=== PATIENT | female | born 1960 | race Hispanic/Latino ===

== ENCOUNTER 2021-07-17 22:08 | Inpatient (IN) | payer SELFPAY ==
[2021-07-17] MEDS ORDERED: NA CHLORIDE 0.9% 1,000 ML ONE (23:12)
[2021-07-17] MEDS ORDERED: METOPROLOL TARTRATE 5 MG/5 ML INJ IV ONE (23:12)
[2021-07-17] MEDS ORDERED: FOLIC ACID 5 MG/ML VIAL ONE (23:14)
[2021-07-17] MEDS ORDERED: ALTEPLASE 100 ML IV ONE (23:15)
[2021-07-17 23:30] LABS: Absolute Lymphocytes (CBC) 3.1 K/uL (0.7-4.9); Basophils % 0.6 % (0-1.3); Hematocrit 41.6 % (36.0-45.0); Lymphocytes % 35.5 % (15.3-44.8); MPV 10.7 fL (7.6-11.3); RBC Red Blood Cell Count 4.75 M/uL (3.86-4.86)
[2021-07-17 23:31] LABS: Protime INR 0.98
[2021-07-17 23:42] LABS: ALT/SGPT 26 U/L (12-78); AST/SGOT 15 U/L (15-37); Alkaline Phosphatase 115 U/L (45-117); BUN Blood Urea Nitrogen 24 mg/dL (7-18); Bicarbonate 29 mmol/L (21-32); Bilirubin Direct < 0.1 mg/dL (0-0.2); Bilirubin Total 0.2 mg/dL (0.2-1.0); Glucose Level 108 mg/dL (74-106); Magnesium 2.2 mg/dL (1.8-2.4); NT PRO-BNP 74 pg/mL (<125); Potassium 3.7 mmol/L (3.5-5.1); Protein, Total 7.5 g/dL (6.4-8.2); Sodium Level 141 mmol/L (136-145); Troponin (Emerg Dept Use Only) < 0.02 ng/mL (0.0-0.045)
[2021-07-18] MEDS ORDERED: NA CHLORIDE 0.9% 100 ML ONE (00:13)
--- NOTE | 2021-07-18 01:29 | EDPHYS ---
Physician Documentation [facility] Name: Elvira Thorpe Age: 60 yrs Sex: Female : 1960 Arrival Date: 07/17/2021 Time: 22:11 Bed 8 Private MD: OTF Physician Galindo Del Angel HPI: 07/17 22:20 This 60 yrs old Female presents to ER via Wheelchair with complaints of Left cp Arm Weakness and Left Leg Weakness. 22:20 The patient's problem is reported as paresthesias, in left upper extremity, weakness, cp in the left upper extremity, in the left lower extremity. Onset: The symptoms/episode began/occurred tonight at approximately 1999. Duration: The episode is continuous. Context: the episode(s) was witnessed, by no one, occurred at home, Possible contributing factors include: Patient is a know diabetic. Associated signs and symptoms: Pertinent positives: headache, Pertinent negatives: abdominal pain, chest pain. Patient's baseline: Neuro: alert and fully oriented, Motor: no deficits, Ambulation: walks without assistance, Speech: normal. Historical: - Allergies: 23:21 No Known Allergies; ea - Home Meds: 23:21 multivitamin with minerals oral [Active]; ea - PMHx: 23:23 breast cancer ; 18 years ago; ea - PSHx: 23:21 section; hysterectomy; ea 23:23 cancerous lump removal; ea - Immunization history:: Adult Immunizations up to date, Client reports receiving the 2nd dose of the Covid vaccine. - Social history:: Smoking status: Patient denies any tobacco usage or history of. ROS: 22:25 Eyes: Negative for injury, pain, redness, and discharge. cp 22:25 Constitutional: Negative for body aches, chills, fever, poor PO intake. 22:25 Cardiovascular: Negative for chest pain, palpitations. 22:25 Abdomen/GI: Negative for abdominal pain, vomiting, diarrhea, constipation. 22:25 Neuro: Positive for headache, weakness, of the left arm and left leg, Negative for altered mental status, speech changes, syncope. Exam: 22:30 Constitutional: The patient appears in no acute distress, alert, awake, cp non-diaphoretic, non-toxic, well developed, well nourished. 22:30 Head/Face: Normocephalic, atraumatic. cp 22:30 Eyes: Periorbital structures: appear normal, Pupils: equal, round, and reactive to light and accomodation, Extraocular movements: intact throughout, Conjunctiva: normal, no exudate, no injection, Sclera: no appreciated abnormality, Lids and lashes: appear normal, bilaterally. 22:30 ENT: External ear(s): are unremarkable, Nose: is normal, Mouth: Lips: moist, Oral mucosa: pink and intact, moist, Posterior pharynx: Airway: no evidence of obstruction, patent. 22:30 Neck: C-spine: vertebral tenderness, is not appreciated, crepitus, is not appreciated, ROM/movement: is normal, is supple, without pain, no range of motions limitations, no meningismus, no nuchal rigidity. 22:30 Chest/axilla: Inspection: normal, Palpation: is normal, no crepitus, no tenderness. 22:30 Cardiovascular: Rate: normal, Rhythm: regular, Heart sounds: murmur, not appreciated, Edema: is not appreciated, JVD: is not appreciated. 22:30 Respiratory: the patient does not display signs of respiratory distress, Respirations: normal, no use of accessory muscles, no retractions, labored breathing, is not present, Breath sounds: are clear throughout, no decreased breath sounds, no stridor, no wheezing. 22:30 Abdomen/GI: Inspection: abdomen appears normal, Palpation: abdomen is soft and non-tender, in all quadrants. 22:30 Neuro: Orientation: to person, place \T\ time. Mentation: able to follow commands, slow to respond, Motor: moves all fours, strength is 4/5 in the left arm and left leg, Sensation: numbness, that is mild, of the left hand. 23:05 Radiologist reports: no intracranial hemorrhage cp 23:42 ECG was reviewed by the Attending Physician. cp Vital Signs: 22:28 BP 176 / 72; Pulse 72; Resp 16; Temp 97.9; Pulse Ox 98% on R/A; ea 22:44 Weight 86.5 kg; ea 23:10 BP 150 / 71; Pulse 76; Resp 18; Pulse Ox 99% ; ea 23:25 BP 135 / 65; Pulse 66; Resp 17; Pulse Ox 98% on R/A; ea 07/18 01:04 BP 121 / 63; Pulse 62; Resp 18; Pulse Ox 98% ; ea 07/19 02:13 BP 111 / 63; Pulse 70; Resp 20; Temp 97.8; Pulse Ox 99% on R/A; kc4 NIH Stroke Scale Scores: 07/17 22:35 NIHSS Score: 5 cp 22:50 NIHSS Score: 2 ea 23:10 NIHSS Score: 0 ea MDM: 22:33 Patient medically screened. cp 22:45 Physician consultation: Jonathon Murphy MD was called at 22:40, was contacted at 22:40, cp regarding patient's condition, recommends administration of tpa. Order CTA head and neck and admit if no large vessel occlusion. 23:00 Differential diagnosis: CVA, TIA, metabolic disorder, drug effects, hypoglycemia. cp 07/18 01:25 Data reviewed: vital signs, nurses notes, lab test result(s), EKG, radiologic studies, cp CT scan, plain films. 01:25 Test interpretation: by ED physician or midlevel provider: ECG, plain radiologic cp studies. Response to treatment: the patient's symptoms have markedly improved after treatment. ED course: reexamination: Patient reports weakness resolved, no paresthesias on exam. 07/17 22:12 Order name: Basic Metabolic Panel; Complete Time: 23:43 mw2 07/17 23:43 Interpretation: Normal except: GLUC 108; BUN 24. cp 07/17 22:12 Order name: CBC with Diff; Complete Time: 23:38 mw2 07/17 22:12 Order name: LFT's; Complete Time: 23:43 mw2 07/17 22:12 Order name: Magnesium; Complete Time: 23:43 mw2 07/17 22:12 Order name: NT PRO-BNP; Complete Time: 23:43 mw2 07/17 22:12 Order name: PT-INR; Complete Time: 23:38 mw2 07/17 22:12 Order name: Troponin (emerg Dept Use Only); Complete Time: 23:43 mw2 07/17 23:50 Order name: Glucose, Ancillary Testing; Complete Time: 00:09 EDMS 07/18 00:18 Order name: SARS-COV-2 RT PCR; Complete Time: 01:00 EDMS 07/18 08:05 Order name: CBC with Automated Diff EDMS 07/18 08:37 Order name: Comprehensive Metabolic Panel EDND 07/18 08:37 Order name: Lipid Profile EDND 07/18 08:37 Order name: T4 Free [facility] 07/17 22:12 Order name: XRAY Chest ([address] view) [facility] 07/17 22:12 Order name: EKG; Complete Time: 22:13 2 07/17 22:12 Order name: Cardiac monitoring; Complete Time: 23:18 2 07/17 22:12 Order name: CT Head Brain wo Cont [facility] 07/17 23:45 Order name: CT Head Angio cp 07/17 23:45 Order name: CT Neck Angio cp 07/18 08:37 Order name: Thyroid Stimulating Hormone EDND 07/18 09:06 Order name: Urine Dipstick-Ancillary EDND 07/18 10:18 Order name: US EDND 07/18 12:28 Order name: MRI EDND 07/18 12:30 Order name: MRI [facility] 07/18 12:33 Order name: MRI [facility] 07/17 22:12 Order name: EKG - Nurse/Tech; Complete Time: 00:[address] [facility] 07/17 22:12 Order name: IV Saline Lock; Complete Time: 23:18 2 07/17 22:12 Order name: Labs collected and sent; Complete Time: 23:18 2 07/17 22:12 Order name: O2 Per Protocol; Complete Time: 23:18 2 07/17 22:12 Order name: O2 Sat Monitoring; Complete Time: 23:18 mw2 EC/30 23:42 Rate is 66 beats/min. Rhythm is regular. SD interval is normal. QRS interval is normal. cp QT interval is normal. T waves are Inverted in leads III, aVR. Interpreted by me. Reviewed by me. Administered Medications: 22:55 Drug: ACTIvase (alteplase) {Co-Signature: mr2 (David Daigle RN).} Route: IV ea Thrombolytics; Rate: calculated rate; Infused Over: 60 mins; 23:55 Follow up: Response: No adverse reaction 23:55 Follow up: Response: No adverse reaction 23:00 Drug: foLIC Acid 1 mg Route: IVPB; Site: right hand; ea 07/18 02:00 Follow up: IV Status: Completed infusion 07/17 23:00 Drug: NS 0.9% 1000 ml Route: IV; Rate: 1 bolus; Site: right antecubital; ea 07/18 01:40 Follow up: Response: No adverse reaction; IV Status: Completed infusion; IV Intake: ea 1000ml 07/19 02:14 Follow up: IV Status: Completed infusion kc4 07/18 01:04 Not Given (Hemodynamic Parameters): Lopressor (metoprolol) 5 mg IVP once; Hold for SBP ea <100 or HR <60. Disposition: 07/19 12:59 Co-signature as Attending Physician, Galindo Del Angel MD PA/EDITORIAL PROJECT MANAGER's history reviewed, ma2 patient interviewed, and examined. I agree with assessment and care plan and confirm the diagnosis (es) above. Disposition Summary: 07/18/21 01:28 Hospitalization Ordered Hospitalization Status: Inpatient Admission cp Provider: Apollo Garnica cp Condition: Stable cp Problem: new cp Symptoms: have improved cp Bed/Room Type: Standard cp Location: [facility] ER HOLD(07/18/21 02:18) tl1 Room Assignment: ERHOLD-(07/18/21 02:18) tl1 Diagnosis - Weakness - Left Arm and Left Leg cp - Paresthesia of skin - Left Arm cp - Elevated blood-pressure reading, without diagnosis of hypertension cp Forms: - Medication Reconciliation Form cp - SBAR form cp NIH Stroke Scale - NIH Stroke Score Date: 07/17/2021 Time: 22:35 Total Score = 5 1a. Level of Consciousness (LOC) - 0(Alert) 1b. Level of Consciousness (LOC) (Month \T\ Age) - 0(Both) 1c. LOC Commands (Open \T\ Closes Eyes/Adjunct Faculty Mathematics Department) - 0(Both) 2. Best Gaze (Lateral Gaze Paresis) - 0(Normal) 3. Visual Field Loss - 0(No visual loss) 4. Facial Palsy - 0(Normal) 5a. Left Arm: Motor (10-second hold) - 1(Drift) 5b. Right Arm: Motor (10-second hold) - 0(No drift) 6a. Left Leg: Motor (5-second hold - always test supine) - 1(Drift) 6b. Right Leg: Motor (5-second hold - always test supine) - 0(No drift) 7. Limb Ataxia (finger/nose \T\ heel/gong - test with eyes open) - 2(Present in two limbs) 8. Sensory Loss (pinprick arms/legs/face) - 1(Mild to moderate loss) 9. Best Language: Aphasia (description/naming/reading) - 0(No aphasia) 10. Dysarthria (speech clarity - read or repeat words) - 0(Normal) 11. Extinction and Inattention (visual/tactile/auditory/spatial/personal) - 0(No abnormality) Initials: cp NIH Stroke Scale - NIH Stroke Score Date: 07/17/2021 Time: 22:50 Total Score = 2 1a. Level of Consciousness (LOC) - 0(Alert) 1b. Level of Consciousness (LOC) (Month \T\ Age) - 0(Both) 1c. LOC Commands (Open \T\ Closes Eyes/Adjunct Faculty Mathematics Department) - 0(Both) 2. Best Gaze (Lateral Gaze Paresis) - 0(Normal) 3. Visual Field Loss - 0(No visual loss) 4. Facial Palsy - 0(Normal) 5a. Left Arm: Motor (10-second hold) - 1(Drift) 5b. Right Arm: Motor (10-second hold) - 0(No drift) 6a. Left Leg: Motor (5-second hold - always test supine) - 1(Drift) 6b. Right Leg: Motor (5-second hold - always test supine) - 0(No drift) 7. Limb Ataxia (finger/nose \T\ heel/gong - test with eyes open) - 0(Absent) 8. Sensory Loss (pinprick arms/legs/face) - 0(Normal) 9. Best Language: Aphasia (description/naming/reading) - 0(No aphasia) 10. Dysarthria (speech clarity - read or repeat words) - 0(Normal) 11. Extinction and Inattention (visual/tactile/auditory/spatial/personal) - 0(No abnormality) Initials: ea NIH Stroke Scale - NIH Stroke Score Date: 07/17/2021 Time: 23:10 Total Score = 0 1a. Level of Consciousness (LOC) - 0(Alert) 1b. Level of Consciousness (LOC) (Month \T\ Age) - 0(Both) 1c. LOC Commands (Open \T\ Closes Eyes/Adjunct Faculty Mathematics Department) - 0(Both) 2. Best Gaze (Lateral Gaze Paresis) - 0(Normal) 3. Visual Field Loss - 0(No visual loss) 4. Facial Palsy - 0(Normal) 5a. Left Arm: Motor (10-second hold) - 0(No drift) 5b. Right Arm: Motor (10-second hold) - 0(No drift) 6a. Left Leg: Motor (5-second hold - always test supine) - 0(No drift) 6b. Right Leg: Motor (5-second hold - always test supine) - 0(No drift) 7. Limb Ataxia (finger/nose \T\ heel/gong - test with eyes open) - 0(Absent) 8. Sensory Loss (pinprick arms/legs/face) - 0(Normal) 9. Best Language: Aphasia (description/naming/reading) - 0(No aphasia) 10. Dysarthria (speech clarity - read or repeat words) - 0(Normal) 11. Extinction and Inattention (visual/tactile/auditory/spatial/personal) - 0(No abnormality) Initials: aram Signatures: Dispatcher [employer] EDMS Tuan Le, ELECTROENCEPHALOGRAM TECHNOLOGIST-C ELECTROENCEPHALOGRAM TECHNOLOGIST-Cla1 Deepti Benitez RN RN tl1 Jero Hubbard PA PA cp Antunez, Elena, RN RN ea Alzahri, Mohammad, MD MD ma2 David Cervantes 2 Katiuska Alfred 4 David Daigle RN mr2 Corrections: (The following items were deleted from the chart) 07/17 23:17 22:42 CORONAVIRUS+.BRZ ordered. EDMS EDMS 23:24 23:21 PMHx: breast cancer; aram chiu 07/18 02:18 01:28 Intensive Care Unit cp tl1 02:18 01:28 cp tl1
--- NOTE | 2021-07-18 01:29 | ER ---
Nurse's Notes [facility] Name: Elvira Thorpe Age: 60 yrs Sex: Female : 1960 Arrival Date: 07/17/2021 Time: 22:11 Bed 8 Private MD: Diagnosis: Weakness-Left Arm and Left Leg;Paresthesia of skin-Left Arm;Elevated blood-pressure reading, without diagnosis of hypertension Presentation: 07/17 22:17 Chief complaint: Patient states: pt states she has been unable to move her left ea extremities since 1999 this pm also co headache that began at the same time. Coronavirus screen: Vaccine status: Client denies travel out of the [place] in the last 14 days. At this time, the client does not indicate any symptoms associated with coronavirus-19. Ebola Screen: Patient negative for fever greater than or equal to 101.5 degrees Fahrenheit, and additional compatible Ebola Virus Disease symptoms Patient denies exposure to infectious person. Patient denies travel to an Ebola-affected area in the 21 days before illness onset. No symptoms or risks identified at this time. Initial Sepsis Screen: Does the patient meet any 2 criteria? No. Patient's initial sepsis screen is negative. Does the patient have a suspected source of infection? No. Patient's initial sepsis screen is negative. Risk Assessment: Do you want to hurt yourself or someone else? Patient reports no desire to harm self or others. Onset of symptoms was July 17, 2021. 22:17 Method Of Arrival: Wheelchair ea 22:17 Acuity: ROLAN 2 ea Triage Assessment: 22:22 General: Appears distressed, uncomfortable. General: Behavior is anxious. Pain: ea Complains of pain in head Quality of pain is described as pressure, Pain began 2 hours ago. Is continuous, Alleviated by nothing. Aggravated by Noted to be confused. Neuro: Level of Consciousness is awake, alert, obeys commands, Oriented to Hide Mill Worker are weak on left Weakness in left Gait is Speech is slurred, Numbness in left arm and left leg. Historical: - Allergies: 23:21 No Known Allergies; ea - Home Meds: 23:21 multivitamin with minerals oral [Active]; ea - PMHx: 23:23 breast cancer ; 18 years ago; ea - PSHx: 23:21 section; hysterectomy; ea 23:23 cancerous lump removal; ea - Immunization history:: Adult Immunizations up to date, Client reports receiving the 2nd dose of the Covid vaccine. - Social history:: Smoking status: Patient denies any tobacco usage or history of. Screenin:16 Abuse screen: Denies threats or abuse. Nutritional screening: No deficits noted. ea Tuberculosis screening: No symptoms or risk factors identified. Fall Risk None identified. 23:39 The patient has not been NPO before screening. The patient is alert, able to follow ea commands. The patient does not exhibit slurred or garbled speech The patient is not exhibiting difficulty speaking. The patient does not exhibit difficulty understanding words. The patient is able to swallow own secretions with no drooling or need for suction. Patient tolerated one teaspoon of water. No drooling, immediate coughing, gurgling, or clearing of the throat was noted. The patient tolerated 90mL of water. No drooling, immediate coughing, gurgling, or clearing of the throat was noted. The patient passed the bedside swallow screening. Oral medications may be given as ordered. Contact Physician for further diet orders. The patient failed the bedside swallow screening. The patient will be kept NPO until cleared by Speech Therapy or Physician. Assessment: 22:26 General: Appears uncomfortable, Behavior is appropriate for age. Pain: Denies pain. ea Neuro: Level of Consciousness is awake, alert, obeys commands, Oriented to person, place, time, situation, Hide Mill Worker are weak on left Weakness in left hand(s) Reports numbness in left arm. Cardiovascular: Patient's skin is warm and dry. Respiratory: Airway is patent Respiratory effort is even, unlabored, Respiratory pattern is regular, symmetrical. Derm: Skin is dry, Skin is pale, Skin temperature is warm. 23:10 Reassessment: Patient and/or family updated on plan of care and expected duration. Pain ea level reassessed. Patient is alert, oriented x 3, equal unlabored respirations, skin warm/dry/pink. Pt is able to move all extremities without deficit, reports she still feels tingling in her left fingertips Patient states symptoms have improved. 07/18 00:07 Reassessment: Patient and/or family updated on plan of care and expected duration. Pain ea level reassessed. Patient is alert, oriented x 3, equal unlabored respirations, skin warm/dry/pink. Patient states feeling better. Vital Signs: 07/17 22:28 BP 176 / 72; Pulse 72; Resp 16; Temp 97.9; Pulse Ox 98% on R/A; ea 22:44 Weight 86.5 kg; ea 23:10 BP 150 / 71; Pulse 76; Resp 18; Pulse Ox 99% ; ea 23:25 BP 135 / 65; Pulse 66; Resp 17; Pulse Ox 98% on R/A; ea 07/18 01:04 BP 121 / 63; Pulse 62; Resp 18; Pulse Ox 98% ; ea 07/19 02:13 BP 111 / 63; Pulse 70; Resp 20; Temp 97.8; Pulse Ox 99% on R/A; kc4 NIH Stroke Scale Scores: 07/17 22:35 NIHSS Score: 5 cp 22:50 NIHSS Score: 2 ea 23:10 NIHSS Score: 0 ea ED Course: 22:11 Patient arrived in ED. mw2 22:15 Jero Hubbard PA is PHCP. cp 22:15 Galindo Del Angel MD is Attending Physician. cp 22:17 CT Head Brain wo Cont Sent. ea 22:20 CT Head Brain wo Cont In Process Unspecified. EDMS 22:21 Triage completed. ea 22:25 Arm band placed on right wrist. ea 22:26 Ebonie Diaz, RN is Primary Nurse. ea 22:26 Inserted saline lock: 18 gauge in right antecubital area, using aseptic technique. ea 22:35 Inserted saline lock: 22 gauge in right hand, using aseptic technique. ea 22:55 XRAY Chest (1 view) In Process Unspecified. EDMS 23:17 Patient has correct armband on for positive identification. Bed in low position. Call ea light in reach. 07/18 00:55 CT Head Angio In Process Unspecified. EDMS 00:55 CT Neck Angio In Process Unspecified. EDMS 01:26 Apollo Garnica DO is Hospitalizing Provider. cp 01:58 No provider procedures requiring assistance completed. Patient admitted, IV remains in ea place. 07/19 02:12 IV discontinued, intact, bleeding controlled, No redness/swelling at site. Pressure kc4 dressing applied. Administered Medications: 07/17 22:55 Drug: ACTIvase (alteplase) {Co-Signature: mr2 (David Daigle RN).} Route: IV ea Thrombolytics; Rate: calculated rate; Infused Over: 60 mins; 23:55 Follow up: Response: No adverse reaction ea 23:55 Follow up: Response: No adverse reaction ea 23:00 Drug: foLIC Acid 1 mg Route: IVPB; Site: right hand; ea 07/18 02:00 Follow up: IV Status: Completed infusion ea 07/17 23:00 Drug: NS 0.9% 1000 ml Route: IV; Rate: 1 bolus; Site: right antecubital; ea 07/18 01:40 Follow up: Response: No adverse reaction; IV Status: Completed infusion; IV Intake: ea 1000ml 07/19 02:14 Follow up: IV Status: Completed infusion kc4 07/18 01:04 Not Given (Hemodynamic Parameters): Lopressor (metoprolol) 5 mg IVP once; Hold for SBP ea <100 or HR <60. Intake: 01:40 IV: 1000ml; Total: 1000ml. ea Outcome: 01:28 Decision to Hospitalize by Provider. cp 01:59 Condition: stable ea 01:59 Instructed on the need for admit, Demonstrated understanding of instructions, follow-up care. 02:40 Admitted to ER Hold. Please see [facility] for further documentation. ea 07/19 02:15 Patient left the ED. kc4 NIH Stroke Scale - NIH Stroke Score Date: 07/17/2021 Time: 22:35 Total Score = 5 1a. Level of Consciousness (LOC) - 0(Alert) 1b. Level of Consciousness (LOC) (Month \T\ Age) - 0(Both) 1c. LOC Commands (Open \T\ Closes Eyes/Steel Buffer) - 0(Both) 2. Best Gaze (Lateral Gaze Paresis) - 0(Normal) 3. Visual Field Loss - 0(No visual loss) 4. Facial Palsy - 0(Normal) 5a. Left Arm: Motor (10-second hold) - 1(Drift) 5b. Right Arm: Motor (10-second hold) - 0(No drift) 6a. Left Leg: Motor (5-second hold - always test supine) - 1(Drift) 6b. Right Leg: Motor (5-second hold - always test supine) - 0(No drift) 7. Limb Ataxia (finger/nose \T\ heel/gong - test with eyes open) - 2(Present in two limbs) 8. Sensory Loss (pinprick arms/legs/face) - 1(Mild to moderate loss) 9. Best Language: Aphasia (description/naming/reading) - 0(No aphasia) 10. Dysarthria (speech clarity - read or repeat words) - 0(Normal) 11. Extinction and Inattention (visual/tactile/auditory/spatial/personal) - 0(No abnormality) Initials: cp NIH Stroke Scale - NIH Stroke Score Date: 07/17/2021 Time: 22:50 Total Score = 2 1a. Level of Consciousness (LOC) - 0(Alert) 1b. Level of Consciousness (LOC) (Month \T\ Age) - 0(Both) 1c. LOC Commands (Open \T\ Closes Eyes/Steel Buffer) - 0(Both) 2. Best Gaze (Lateral Gaze Paresis) - 0(Normal) 3. Visual Field Loss - 0(No visual loss) 4. Facial Palsy - 0(Normal) 5a. Left Arm: Motor (10-second hold) - 1(Drift) 5b. Right Arm: Motor (10-second hold) - 0(No drift) 6a. Left Leg: Motor (5-second hold - always test supine) - 1(Drift) 6b. Right Leg: Motor (5-second hold - always test supine) - 0(No drift) 7. Limb Ataxia (finger/nose \T\ heel/gong - test with eyes open) - 0(Absent) 8. Sensory Loss (pinprick arms/legs/face) - 0(Normal) 9. Best Language: Aphasia (description/naming/reading) - 0(No aphasia) 10. Dysarthria (speech clarity - read or repeat words) - 0(Normal) 11. Extinction and Inattention (visual/tactile/auditory/spatial/personal) - 0(No abnormality) Initials: ea NIH Stroke Scale - NIH Stroke Score Date: 07/17/2021 Time: 23:10 Total Score = 0 1a. Level of Consciousness (LOC) - 0(Alert) 1b. Level of Consciousness (LOC) (Month \T\ Age) - 0(Both) 1c. LOC Commands (Open \T\ Closes Eyes/Steel Buffer) - 0(Both) 2. Best Gaze (Lateral Gaze Paresis) - 0(Normal) 3. Visual Field Loss - 0(No visual loss) 4. Facial Palsy - 0(Normal) 5a. Left Arm: Motor (10-second hold) - 0(No drift) 5b. Right Arm: Motor (10-second hold) - 0(No drift) 6a. Left Leg: Motor (5-second hold - always test supine) - 0(No drift) 6b. Right Leg: Motor (5-second hold - always test supine) - 0(No drift) 7. Limb Ataxia (finger/nose \T\ heel/gong - test with eyes open) - 0(Absent) 8. Sensory Loss (pinprick arms/legs/face) - 0(Normal) 9. Best Language: Aphasia (description/naming/reading) - 0(No aphasia) 10. Dysarthria (speech clarity - read or repeat words) - 0(Normal) 11. Extinction and Inattention (visual/tactile/auditory/spatial/personal) - 0(No abnormality) Initials: aram Signatures: Dispatcher [employer] EDMS eJro Hubbard PA PA cp Antunez, Elena RN RN David Soto mw2 Katiuska Alfred kc4 David Daigle RN mr2 Corrections: (The following items were deleted from the chart) 07/17 23:24 23:21 PMHx: breast cancer; aram chiu
[2021-07-18 03:14] VITALS: BMI 32.7
--- NOTE | 2021-07-18 04:42 | P.HP ---
Certification for Inpatient Patient admitted to: Inpatient With expected LOS: >2 Midnights Patient will require the following post-hospital care: None Practitioner: I am a practitioner with admitting privileges, knowledge of patient current condition, hospital course, and medical plan of care. Services: Services provided to patient in accordance with Admission requirements found in Title 42 Section 412.3 of the Code of Federal Regulations Patient History Date of Service: 07/18/21 Reason for admission: Weakness/paresthesia History of Present Illness: 60-year-old female who is otherwise healthy presented to the emergency department for left-sided weakness. Patient reports that she noted symptoms began around 8 PM on 07/17/2021, reported headache, left upper and lower extremity weakness/numbness and tingling. Initial NIH stroke scale was 5 ED provider discussed case with neurology who recommended administration of TPA. tPA was ordered and administered at 2255. CT head brain without contrast negative for acute findings CT angio of the head neck also negative for acute findings. Symptoms quickly resolved at the time of my evaluation patient with NIH of 0, complete resolution of symptoms on exam. Labs were unremarkable, headache resolved. ED prior wishes to admit for further evaluation of left- sided weakness/paresthesia. Allergies No Known Allergies Allergy (Unverified 06/19/17 06:20) - Past Medical/Surgical History Has patient received pneumonia vaccine in the past: No -: Breast cancer 2002 -: -: Hysterectomy -: Lumpectomy Psychosocial/ Personal History: Patient lives at home with her family - Family History Family History: Reviewed- Non-Contributory - Social History Smoking Status: Never smoker Alcohol use: No CD- Drugs: No Caffeine use: Yes Place of Residence: Home Review of Systems 10-point ROS is otherwise unremarkable Neurological: Other (Patient with weakness of the left upper and lower extremity, numbness of the left upper lower extremities which is now resolved, also reported headache which is also resolved), As per HPI Physical Examination - Vital Signs Blood Pressure: 135/70 Pulse: 56 Respirations: 18 Pulse Ox (%): 99 - Physical Exam General: Alert, In no apparent distress, Oriented x3 HEENT: Atraumatic, PERRLA, Mucous membr. moist/pink, EOMI, Sclerae nonicteric Neck: Supple, 2+ carotid pulse no bruit, No LAD, Without JVD or thyroid abnormality Respiratory: Clear to auscultation bilaterally, Normal air movement Cardiovascular: Regular rate/rhythm, Normal S1 S2 Gastrointestinal: Normal bowel sounds, No tenderness Musculoskeletal: No tenderness Integumentary: No rashes Neurological: Normal gait, Normal speech, Normal strength at 5/5 x4 extr, Normal tone, Sensation intact, Cranial nerves 3-12 intact, Normal affect - Studies Laboratory Data (last 24 hrs) 07/17/21 22:17: PT 11.3, INR 0.98 07/17/21 22:17: WBC 8.80, Hgb 13.9, Hct 41.6, Plt Count 179 07/17/21 22:17: Sodium 141, Potassium 3.7, BUN 24 H, Creatinine 0.64, Glucose 108 H, Magnesium 2.2, Total Bilirubin 0.2, AST 15, ALT 26, Alkaline Phosphatase 115 Assessment and Plan - Plan Assessment: Left upper and lower extremity weakness/paresthesiasresolved status post TPA suspect CVA versus TIA Plan: Left upper and lower extremity weakness/paresthesiasresolved status post TPA suspect CVA versus TIA: Patient received TPA at 2255 on 07/17/2021 which has completed. Symptoms have resolved at this time NIH is 0. CT angio head and neck negative for acute findings. MRI stroke protocol, echocardiogram, carotid ultrasound ordered. Continue with folic acid, statin, will start aspirin after 24 hours from receiving TPA. Neurology consult in place, physical therapy consult in place. Patient passed bedside swallow screen will continue with diet. Await further findings and recommendations from neurology. DVT PPX: SCDs at this time given recent infusion of TPA Code status: Full code Discharge Plan: Home Plan to discharge in: 48 Hours - Advance Directives Does patient have a Living Will: No Does patient have a Durable POA for Healthcare: No - Code Status/Comfort Care Code Status Assessed: Yes (Full code) Critical Care: No Time Spent Managing Pts Care (In Minutes): 55
--- NOTE | 2021-07-18 06:50 | P.PN ---
Subjective Date of Service: 07/18/21 Chief Complaint: Weakness/paresthesia Subjective: Improving, Doing well Physical Examination - Vital Signs Blood Pressure: 145/66 Pulse: 64 Respirations: 17 Pulse Ox (%): 100 - Studies Laboratory Data (last 24 hrs) 07/17/21 22:17: PT 11.3, INR 0.98 07/17/21 22:17: WBC 8.80, Hgb 13.9, Hct 41.6, Plt Count 179 07/17/21 22:17: Sodium 141, Potassium 3.7, BUN 24 H, Creatinine 0.64, Glucose 108 H, Magnesium 2.2, Total Bilirubin 0.2, AST 15, ALT 26, Alkaline Phosphatase 115 Assessment & Plan Discharge Plan: Home Plan to discharge in: 24 Hours Physician Review Additional Text: COVID: negative MRI Brain: COMPARISON: MRA Head Wo Cont dated 07/18/2021 TECHNIQUE: Sagittal and axial T1-weighted images were obtained. Axial PD/heavily T2-weighted and T2-FLAIR images were obtained along with axial DWI/ADC mapping sequences. Axial and coronal post-contrast T1-weighted images were also obtained. FINDINGS: No acute intracranial abnormality is identified. No diffusion restriction. Scattered T2/FLAIR hyperintense foci within the subcortical and deep white matter consistent with chronic small vessel ischemic changes. No mass effect or midline shift. No abnormal enhancement is identified. No hydrocephalus. Normal flow voids. No mastoid effusion. Paranasal sinuses are well aerated. Mild age-appropriate cerebral atrophy. IMPRESSION: No acute intracranial abnormality. Specifically, no evidence of acute infarct. Mild chronic small vessel ischemic changes. MRA Brain: COMPARISON: No comparisons FINDINGS: MRA of the head was performed without contrast. The bilateral ICAs are both widely patent. The middle cerebral arteries are widely patent. The anterior cerebral arteries are patent. The vertebral arteries and basilar artery are patent. The posterior cerebral arteries are patent. No aneurysm, occlusion, or stenosis is identified. IMPRESSION: Patent [place]. No stenosis, aneurysm, or occlusion. MRA Neck: COMPARISON: MRA Head Wo Cont dated 07/18/2021; Carotid Artery Bilateral dated 07/18/2021 FINDINGS: Contrast enhance 2D [id number] MR angiography of the neck vessels was performed. Widely patent bilateral common carotid, external carotid, internal carotid arteries. The vertebral artery is are patent bilaterally codominant. No dissection identified. IMPRESSION: Normal MRA of the neck. No stenosis or dissection. Carotid doppler: COMPARISON: No comparisons FINDINGS: MRA of the head was performed without contrast. The bilateral ICAs are both widely patent. The middle cerebral arteries are widely patent. The anterior cerebral arteries are patent. The vertebral arteries and basilar artery are patent. The posterior cerebral arteries are patent. No aneurysm, occlusion, or stenosis is identified. IMPRESSION: Patent [place]. No stenosis, aneurysm, or occlusion. ECHO: MEASUREMENTS (cm) DIASTOLIC (NORMALS) SYSTOLIC (NORMALS) IVSd 1.0 (0.6-1.2) LA Diam 2.5 (1.9-4.0) LVEF 70% LVIDd 3.4 (3.5-5.7) LVIDs 2.1 (2.0-3.5) %FS 38% LVPWd 1.1 (0.6-1.2) Ao Diam 2.5 (2.0-3.7) 2 DIMENSIONAL ASSESSMENT: RIGHT ATRIUM: NORMAL LEFT ATRIUM: NORMAL RIGHT VENTRICLE: NORMAL LEFT VENTRICLE: NORMAL TRICUSPID VALVE: NORMAL MITRAL VALVE: NORMAL PULMONIC VALVE: NORMAL AORTIC VALVE: NORMAL PERICARDIAL EFFUSION: NONE AORTIC ROOT: NORMAL LEFT VENTRICULAR WALL MOTION: NORMAL DOPPLER/COLOR FLOW: MILD TRICUSPID REGURGITATION. COMMENTS: NORMAL LEFT VENTRICULAR SIZE AND FUNCTION. MILD TRICUSPID REGURGITATION. NO WALL MOTION ABNORMALITY. NO EFUSION. Physical exam: General: Alert, In no apparent distress, Oriented x3 HEENT: Atraumatic, PERRLA, Mucous membr. moist/pink, EOMI, Sclerae nonicteric Neck: Supple, 2+ carotid pulse no bruit, No LAD, Without JVD or thyroid abnormality Respiratory: Clear to auscultation bilaterally, Normal air movement Cardiovascular: Regular rate/rhythm, Normal S1 S2 Gastrointestinal: Normal bowel sounds, No tenderness Musculoskeletal: No tenderness Integumentary: No rashes Neurological: Normal gait, Normal speech, Normal strength at 5/5 x4 extr, Normal tone, Sensation intact, Cranial nerves 3-12 intact, Normal affect Impression: Left upper and lower extremity weakness/paresthesiasresolved status post TPA suspect CVA versus TIA Hyperlipidemia Plan: Left upper and lower extremity weakness/paresthesiasresolved status post TPA suspect CVA versus TIA: Patient had TPA at 2255. Patient doing well. Patient back to baseline. No other symptoms identified. MRI negative. MRSA negative. Echocardiogram unremarkable. Carotid Doppler unremarkable. Case discussed with neurology. Patient will continue with aspirin 81 mg daily, folic acid 1 mg daily, and Lipitor 40 mg at discharge. We will recheck CT scan later today. If negative will consider discharge later today or tomorrow. Hyperlipidemia: LDL 124. We will start Lipitor DVT PPX: SCDs at this time given recent infusion of TPA Code status: Full code Discharge Plan: Home Time Spent Managing Pts Care (In Minutes): 55
--- NOTE | 2021-07-18 07:08 | RAD REPORT ---
EXAM DESCRIPTION: RAD - Chest Single View - 07/17/2021 10:55 pm CLINICAL HISTORY: stroke workup COMPARISON: Chest Single View dated 06/19/2017 FINDINGS: Lines: None. Lungs: No evidence of edema or pneumonia. Pleural: No significant pleural effusions or pneumothorax. Cardiac: The heart size is within normal limits. Bones: No acute fractures. Other: Surgical clips in the right axilla. IMPRESSION: No acute cardiopulmonary disease.
[2021-07-18] MEDS ORDERED: ONDANSETRON 4 MG/2 ML VIAL IV PRN (07:14)
[2021-07-18] MEDS ORDERED: ACETAMINOPHEN 500 MG TAB PO PRN (07:14)
[2021-07-18] MEDS ORDERED: INFLUENZA VACCINE (for 6+ mo) 0.5 ML DOSE IMVAC ONE ×2 (08:00→09:22)
[2021-07-18 08:02] LABS: Absolute Lymphocytes (CBC) 1.5 K/uL (0.7-4.9); Basophils % 0.6 % (0-1.3); Hematocrit 40.4 % (36.0-45.0); Lymphocytes % 23.4 % (15.3-44.8); MPV 9.8 fL (7.6-11.3); RBC Red Blood Cell Count 4.64 M/uL (3.86-4.86)
[2021-07-18 08:37] LABS: ALT/SGPT 24 U/L (12-78); AST/SGOT 13 U/L (15-37); Albumin 3.8 g/dL (3.4-5.0); Alkaline Phosphatase 87 U/L (45-117); BUN Blood Urea Nitrogen 14 mg/dL (7-18); Bicarbonate 26 mmol/L (21-32); Bilirubin Total 0.4 mg/dL (0.2-1.0); Glucose Level 118 mg/dL (74-106); HDL Cholesterol 38 mg/dL (40-60); LDL Cholesterol, Calculated 124 (<130); Protein, Total 6.9 g/dL (6.4-8.2); Sodium Level 142 mmol/L (136-145)
[2021-07-18] MEDS ORDERED: FOLIC ACID 1 MG TABLET PO SCH (09:00)
[2021-07-18 09:06] LABS: Urine Blood Negative (Negative); Urine Glucose Negative (Negative); Urine Protein Negative (Negative); Urine Specific Gravity 1.015 (1.005-1.030)
[2021-07-18] MEDS ORDERED: FOLIC ACID 1 MG TABLET ONE (09:21)
--- NOTE | 2021-07-18 10:18 | RAD REPORT ---
EXAM DESCRIPTION: US - CP - 07/18/2021 9:50 am CLINICAL HISTORY: Left sided weakness COMPARISON: Neck Angio dated 07/18/2021 TECHNIQUE: Real-time sonographic evaluation of both carotid systems was performed. Doppler interroga tion was performed with waveform tracing bilaterally. FINDINGS: Normal high resistance waveforms are noted in both external carotid arteries. The common c arotid arteries and internal carotid arteries show normal low resistance waveforms. No significant plaque formation is seen. Peak systolic and end diastolic velocity values and the ICA/ CCA ratios are in the non-hemodynamically significant range. Antegrade flow seen in both vertebral arteries. IMPRESSION: No significant atherosclerotic changes noted. No evidence of a hemodynamically significant stenosis.
--- NOTE | 2021-07-18 12:28 | RAD REPORT ---
EXAM DESCRIPTION: MRI - MRA Head Wo Cont - 07/18/2021 12:21 pm CLINICAL HISTORY: Left weakness/paresthesia COMPARISON: No comparisons FINDINGS: MRA of the head was performed without contrast. The bilateral ICAs are both widely patent. The middle cerebral arteries are widely patent. The anteri or cerebral arteries are patent. The vertebral arteries and basilar artery are patent. The posterior cerebral arteries are patent. No aneurysm, occlusion, or stenosis is identified. IMPRESSION: [place]. No stenosis, aneurysm, or occlusion.
--- NOTE | 2021-07-18 12:30 | RAD REPORT ---
EXAM DESCRIPTION: MRI - MRA Neck W/Wo Cont - 07/18/2021 12:22 pm CLINICAL HISTORY: Left weakness/ paresthesia COMPARISON: MRA Head Wo Cont dated 07/18/2021; Carotid Artery Bilateral dated 07/18/2021 FINDINGS: Contrast enhance 2D [id number] MR angiography of the neck vessels was performed. Widely patent bilateral common carotid, external carotid, internal carotid arteries. The vertebral ar alyssa is are patent bilaterally codominant. No dissection identified. IMPRESSION: Normal MRA of the neck. No stenosis or dissection.
--- NOTE | 2021-07-18 12:33 | RAD REPORT ---
EXAM DESCRIPTION: MRI - Brain W/Wo Cont - 07/18/2021 12:24 pm CLINICAL HISTORY: Paresthesias COMPARISON: MRA Head Wo Cont dated 07/18/2021 TECHNIQUE: Sagittal and axial T1-weighted images were obtained. Axial PD/heavily T2-weighted and T2- FLAIR images were obtained along with axial DWI/ADC mapping sequences. Axial and coronal post-contras t T1-weighted images were also obtained. FINDINGS: No acute intracranial abnormality is identified. No diffusion restriction. Scattered T2/FL AIR hyperintense foci within the subcortical and deep white matter consistent with chronic small vess el ischemic changes. No mass effect or midline shift. No abnormal enhancement is identified. No hydro cephalus. Normal flow voids. No mastoid effusion. Paranasal sinuses are well aerated. Mild age-approp riate cerebral atrophy. IMPRESSION: No acute intracranial abnormality. Specifically, no evidence of acute infarct. Mild complaint evaluation officer madeleine small vessel ischemic changes.
--- NOTE | 2021-07-18 12:54 | ECHO ---
HEIGHT: 5 ft 4 in WEIGHT: 190 lb 11.198 oz DATE OF STUDY: 07/18/[address]: Tuan Le NP 2-DIMENSIONAL: YES M.MODE: YES DOPPLER: YES COLOR FLOW: YES TDS: NO PORTABLE: NO DEFINITY: NO BUBBLE STUDY: NO DIAGNOSIS: STROKE CARDIAC HISTORY: CATHERIZATION: NO SURGERY: NO PROSTHETIC VALVE: NO PACEMAKER: NO MEASUREMENTS (cm) DIASTOLIC (NORMALS) SYSTOLIC (NORMALS) IVSd 1.0 (0.6-1.2) LA Diam 2.5 (1.9-4.0) LVEF 70% LVIDd 3.4 (3.5-5.7) LVIDs 2.1 (2.0-3.5) %FS 38% LVPWd 1.1 (0.6-1.2) Ao Diam 2.5 (2.0-3.7) 2 DIMENSIONAL ASSESSMENT: RIGHT ATRIUM: NORMAL LEFT ATRIUM: NORMAL RIGHT VENTRICLE: NORMAL LEFT VENTRICLE: NORMAL TRICUSPID VALVE: NORMAL MITRAL VALVE: NORMAL PULMONIC VALVE: NORMAL AORTIC VALVE: NORMAL PERICARDIAL EFFUSION: NONE AORTIC ROOT: NORMAL LEFT VENTRICULAR WALL MOTION: NORMAL DOPPLER/COLOR FLOW: MILD TRICUSPID REGURGITATION. COMMENTS: NORMAL LEFT VENTRICULAR SIZE AND FUNCTION. MILD TRICUSPID REGURGITATION. NO WALL MOTION ABNORMALITY. NO EFUSION. TECHNOLOGIST: Refugio WILLINGHAM
--- NOTE | 2021-07-18 19:46 | P.DS ---
Admission Date: 07/18/21 Discharge Date: 07/19/21 Disposition: ROUTINE DISCHARGE Discharge Condition: GOOD Reason for Admission: Weakness/paresthesia Consultations: Neurology: Dr. Murphy Procedures: COVID: negative MRI Brain: COMPARISON: MRA Head Wo Cont dated 07/18/2021 TECHNIQUE: Sagittal and axial T1-weighted images were obtained. Axial PD/heavily T2-weighted and T2-FLAIR images were obtained along with axial DWI/ADC mapping sequences. Axial and coronal post-contrast T1-weighted images were also obtained. FINDINGS: No acute intracranial abnormality is identified. No diffusion restriction. Scattered T2/FLAIR hyperintense foci within the subcortical and deep white matter consistent with chronic small vessel ischemic changes. No mass effect or midline shift. No abnormal enhancement is identified. No hydrocephalus. Normal flow voids. No mastoid effusion. Paranasal sinuses are well aerated. Mild age-appropriate cerebral atrophy. IMPRESSION: No acute intracranial abnormality. Specifically, no evidence of acute infarct. Mild chronic small vessel ischemic changes. MRA Brain: COMPARISON: No comparisons FINDINGS: MRA of the head was performed without contrast. The bilateral ICAs are both widely patent. The middle cerebral arteries are widely patent. The anterior cerebral arteries are patent. The vertebral arteries and basilar artery are patent. The posterior cerebral arteries are patent. No aneurysm, occlusion, or stenosis is identified. IMPRESSION: Patent [place]. No stenosis, aneurysm, or occlusion. MRA Neck: COMPARISON: MRA Head Wo Cont dated 07/18/2021; Carotid Artery Bilateral dated 07/18/2021 FINDINGS: Contrast enhance 2D [id number] MR angiography of the neck vessels was performed. Widely patent bilateral common carotid, external carotid, internal carotid arteries. The vertebral artery is are patent bilaterally codominant. No dissection identified. IMPRESSION: Normal MRA of the neck. No stenosis or dissection. Carotid doppler: COMPARISON: No comparisons FINDINGS: MRA of the head was performed without contrast. The bilateral ICAs are both widely patent. The middle cerebral arteries are widely patent. The anterior cerebral arteries are patent. The vertebral arteries and basilar artery are patent. The posterior cerebral arteries are patent. No aneurysm, occlusion, or stenosis is identified. IMPRESSION: Patent [place]. No stenosis, aneurysm, or occlusion. ECHO: MEASUREMENTS (cm) DIASTOLIC (NORMALS) SYSTOLIC (NORMALS) IVSd 1.0 (0.6-1.2) LA Diam 2.5 (1.9-4.0) LVEF 70% LVIDd 3.4 (3.5-5.7) LVIDs 2.1 (2.0-3.5) %FS 38% LVPWd 1.1 (0.6-1.2) Ao Diam 2.5 (2.0-3.7) 2 DIMENSIONAL ASSESSMENT: RIGHT ATRIUM: NORMAL LEFT ATRIUM: NORMAL RIGHT VENTRICLE: NORMAL LEFT VENTRICLE: NORMAL TRICUSPID VALVE: NORMAL MITRAL VALVE: NORMAL PULMONIC VALVE: NORMAL AORTIC VALVE: NORMAL PERICARDIAL EFFUSION: NONE AORTIC ROOT: NORMAL LEFT VENTRICULAR WALL MOTION: NORMAL DOPPLER/COLOR FLOW: MILD TRICUSPID REGURGITATION. COMMENTS: NORMAL LEFT VENTRICULAR SIZE AND FUNCTION. MILD TRICUSPID REGURGITATION. NO WALL MOTION ABNORMALITY. NO EFUSION. Physical exam: General: Alert, In no apparent distress, Oriented x3 HEENT: Atraumatic, PERRLA, Mucous membr. moist/pink, EOMI, Sclerae nonicteric Neck: Supple, 2+ carotid pulse no bruit, No LAD, Without JVD or thyroid abnormality Respiratory: Clear to auscultation bilaterally, Normal air movement Cardiovascular: Regular rate/rhythm, Normal S1 S2 Gastrointestinal: Normal bowel sounds, No tenderness Musculoskeletal: No tenderness Integumentary: No rashes Neurological: Normal gait, Normal speech, Normal strength at 5/5 x4 extr, Normal tone, Sensation intact, Cranial nerves 3-12 intact, Normal affect Impression: Left upper and lower extremity weakness/paresthesiasresolved status post TPA suspect CVA versus TIA Hyperlipidemia Plan: Left upper and lower extremity weakness/paresthesiasresolved status post TPA suspect CVA versus TIA: Patient had TPA at 2255. Patient doing well. Patient back to baseline. No other symptoms identified. MRI negative. MRSA negative. Echocardiogram unremarkable. Carotid Doppler unremarkable. Case discussed with neurology. Patient will continue with aspirin 81 mg daily, folic acid 1 mg daily, and Lipitor 40 mg at discharge. We will recheck CT scan later today. If negative will consider discharge later today or tomorrow. Hyperlipidemia: LDL 124. We will start Lipitor DVT PPX: SCDs at this time given recent infusion of TPA Code status: Full code Brief History of Present Illness: 60-year-old female who is otherwise healthy presented to the emergency department for left-sided weakness. Patient reports that she noted symptoms began around 8 PM on 07/17/2021, reported headache, left upper and lower extremity weakness/numbness and tingling. Initial NIH stroke scale was 5 ED provider discussed case with neurology who recommended administration of TPA. tPA was ordered and administered at 2255. CT head brain without contrast negative for acute findings CT angio of the head neck also negative for acute findings. Symptoms quickly resolved at the time of my evaluation patient with NIH of 0, complete resolution of symptoms on exam. Labs were unremarkable, headache resolved. ED prior wishes to admit for further evaluation of left- sided weakness/paresthesia. Hospital Course: Patient was admitted overnight had MRI brain without contrast and MRI head/neck with contrast which were negative for any acute findings, echocardiogram unremarkable, carotid Doppler unremarkable Case was discussed with neurology, patient symptoms have resolved completely at this time. CT scan from this evening 24 hours from TPA infusion negative for any acute findings. Patient noted to have hyperlipidemia with LDL of 124, discharge patient to continue with aspirin 81 mg p.o. daily, folic acid 1 mg p.o. daily, Lipitor 40 mg p.o. daily and already to follow-up both with her primary care doctor and neurology in the next 2 weeks strict return precautions given.. Vital Signs/Physical Exam: Temp Pulse Resp BP Pulse Ox 98.5 F 71 16 121/68 100 07/18/21 18:25 07/18/21 18:25 07/18/21 18:25 07/18/21 18:25 07/18/21 18:25 General: Alert, In no apparent distress, Oriented x3 HEENT: Atraumatic, PERRLA, EOMI Neck: Supple, JVD not distended Respiratory: Clear to auscultation bilaterally, Normal air movement Cardiovascular: Regular rate/rhythm, Normal S1 S2 Gastrointestinal: Normal bowel sounds, No tenderness Musculoskeletal: No tenderness Integumentary: No rashes Neurological: Normal speech, Normal tone, Normal affect Lymphatics: No axilla or inguinal lymphadenopathy Laboratory Data at Discharge: WBC 6.40 K/uL (4.3-10.9) D 07/18/21 07:45 Hgb 13.6 g/dL (12.0-15.0) 07/18/21 07:45 Hct 40.4 % (36.0-45.0) 07/18/21 07:45 Plt Count 162 K/uL (152-406) 07/18/21 07:45 PT 11.3 SECONDS (9.5-12.5) 07/17/21 22:17 INR 0.98 07/17/21 22:17 Sodium 142 mmol/L (136-145) 07/18/21 07:45 Potassium 4.0 mmol/L (3.5-5.1) 07/18/21 07:45 BUN 14 mg/dL (7-18) 07/18/21 07:45 Creatinine 0.37 mg/dL (0.55-1.3) L 07/18/21 07:45 Glucose 118 mg/dL (74-106) H 07/18/21 07:45 Magnesium 2.2 mg/dL (1.8-2.4) 07/17/21 22:17 Total Bilirubin 0.4 mg/dL (0.2-1.0) 07/18/21 07:45 AST 13 U/L (15-37) L 07/18/21 07:45 ALT 24 U/L (12-78) 07/18/21 07:45 Alkaline Phosphatase 87 U/L (45-117) 07/18/21 07:45 Triglycerides 106 mg/dL (<150) 07/18/21 07:45 Cholesterol 183 mg/dL (<200) 07/18/21 07:45 HDL Cholesterol 38 mg/dL (40-60) L 07/18/21 07:45 Cholesterol/HDL Ratio 4.82 07/18/21 07:45 Home Medications: Aspirin [Aspirin EC] 81 mg PO DAILY #30 tablet. 07/19/21 Atorvastatin Calcium [Lipitor] 40 mg PO DAILY #30 tablet 07/19/21 Folic Acid 1 mg PO DAILY #30 tablet 07/19/21 New Medications: Aspirin [Aspirin EC] 81 mg PO DAILY #30 tablet. Folic Acid 1 mg PO DAILY #30 tablet Atorvastatin Calcium [Lipitor] 40 mg PO DAILY #30 tablet Physician Discharge Instructions: Patient was admitted overnight had MRI brain without contrast and MRI head/neck with contrast which were negative for any acute findings, echocardiogram unremarkable, carotid Doppler unremarkable Case was discussed with neurology, patient symptoms have resolved completely at this time. CT scan from this evening 24 hours from TPA infusion negative for any acute findings. Patient noted to have hyperlipidemia with LDL of 124, discharge patient to continue with aspirin 81 mg p.o. daily, folic acid 1 mg p.o. daily, Lipitor 40 mg p.o. daily and already to follow-up both with her primary care doctor and neurology in the next 2 weeks strict return precautions given.. Diet: AHA Activity: Ad don Followup: NONE,NONE [Primary Care Provider] - Time spent managing pt's care (in minutes): 30
[2021-07-18] MEDS ORDERED: ATORVASTATIN 20 MG TAB PO SCH (21:00)
[2021-07-18] MEDS ORDERED: ATORVASTATIN 20 MG TAB ONE (21:21)
[2021-07-19 02:41] VITALS: BP 111/63; TEMP 97.8; O2SAT 99
--- NOTE | 2021-07-19 20:36 | RAD REPORT ---
EXAM DESCRIPTION: CT - Head Brain Wo Cont - 07/18/2021 6:39 am CLINICAL HISTORY: The patient is 60 years old and is Female; [facility] TECHNIQUE: Axial computed tomography images of the head/brain without intravenous contrast. Sagitt al and coronal reformatted images were created and reviewed. This CT exam was performed using one o r more of the following dose reduction techniques: automated exposure control, adjustment of the mA and/or kV according to patient size, and/or use of iterative reconstruction technique. COMPARISON: CT of the head July 17, 2021 FINDINGS: BRAIN: There is diffuse cerebral atrophy present, consistent with this patient's age. No intracranial hemorrhage, mass effect, or midline shift is seen. There are no extra-axial fluid colle ctions. The morocho-white differentiation is maintained. VENTRICLES: Unremarkable. No ventriculomegaly. BONES/JOINTS: No acute fracture. SOFT TISSUES: Unremarkable. SINUSES: Unremarkable as visualized. No acute sinusitis. MASTOID AIR CELLS: Unremarkable as visualized. No mastoid effusion. ORBITS: Unremarkable as visualized. IMPRESSION: No acute intracranial findings. Electronically signed by: Margarita Sosa MD 07/19/2021 12:20 AM CDT Due to temporary technical issues with the PACS/Fluency reporting system, reports are being signed by the in house radiologists without review as a courtesy to insure prompt reporting. The interpreting radiologist is fully responsible for the content of the report.
--- NOTE | 2021-07-19 20:37 | RAD REPORT ---
EXAM DESCRIPTION: CT - Head angio - 07/18/2021 6:37 am COMPARISON: None. CLINICAL HISTORY: [facility] MAIN left arm weakness TECHNIQUE: CTA of the head and neck was performed with IV contrast. Multiplanar reformats were obtai stefania. MIPS reformats are provided. Automated exposure control was utilized on the exam as a dose lower ing technique. FINDINGS: HEAD FINDINGS: Anterior circulation: The visualized portions of the internal carotid arteries are unremarkable. Alphonso th anterior and middle cerebral arteries show no significant stenosis. No anterior circulation aneury sms. Posterior circulation: The visualized distal vertebral arteries are patent to the vertebrobasilar j unction. The basilar artery and both posterior cerebral arteries are patent. No posterior circulation aneurysms. Visualized dural venous sinuses: Patent. Other findings: The visualized brain parenchyma is unremarkable. Visualized portions of the orbits, sinuses, mastoids, and skull base are unremarkable. NECK FINDINGS: Cervical-cerebral arch: Conventional branching of the aortic arch. No significant stenoses of the a rch or branching vessels. Visualized subclavian arteries are patent. RIGHT carotid system: The common carotid artery is patent. The internal carotid artery is patent. The external carotid artery is patent. No significant calcified plaque. No evidence of dissection. The estimated internal carotid stenosis by NASCET criteria is 0%. LEFT carotid system: The common carotid artery is patent. The internal carotid artery is patent. The external carotid artery is patent. Mild calcified plaque at the bifurcation. No evidence of dissectio n. The estimated internal carotid stenosis by NASCET criteria is 0%. Vertebral arteries: The right vertebral artery is patent to the cervical portion. The left vertebral artery is patent to the cervical portion. No evidence for dissection or aneurysm. Thyroid Gland: Normal. Cervical soft tissues, upper chest and osseous structures: Normal. IMPRESSION: HEAD IMPRESSION: Normal CTA of the head. NECK IMPRESSION: Normal CTA of the neck. COMMENT: All internal carotid artery stenoses are calculated based on NASCET criteria. Electronically signed by: Gurwinder García MD 07/18/2021 1:23 AM CDT Due to temporary technical issues with the PACS/Fluency reporting system, reports are being signed by the in house radiologist without review as a courtesy to ensure prompt reporting. The interpreting r adiologist is fully responsible for the content of the report.
--- NOTE | 2021-07-19 20:38 | RAD REPORT ---
EXAM DESCRIPTION: CT - Neck Angio - 07/18/2021 6:38 am COMPARISON: None. CLINICAL HISTORY: [facility] MAIN left arm weakness TECHNIQUE: CTA of the head and neck was performed with IV contrast. Multiplanar reformats were obtai stefania. MIPS reformats are provided. Automated exposure control was utilized on the exam as a dose lower ing technique. FINDINGS: HEAD FINDINGS: Anterior circulation: The visualized portions of the internal carotid arteries are unremarkable. Alphonso th anterior and middle cerebral arteries show no significant stenosis. No anterior circulation aneury sms. Posterior circulation: The visualized distal vertebral arteries are patent to the vertebrobasilar j unction. The basilar artery and both posterior cerebral arteries are patent. No posterior circulation aneurysms. Visualized dural venous sinuses: Patent. Other findings: The visualized brain parenchyma is unremarkable. Visualized portions of the orbits, sinuses, mastoids, and skull base are unremarkable. NECK FINDINGS: Cervical-cerebral arch: Conventional branching of the aortic arch. No significant stenoses of the a rch or branching vessels. Visualized subclavian arteries are patent. RIGHT carotid system: The common carotid artery is patent. The internal carotid artery is patent. The external carotid artery is patent. No significant calcified plaque. No evidence of dissection. The estimated internal carotid stenosis by NASCET criteria is 0%. LEFT carotid system: The common carotid artery is patent. The internal carotid artery is patent. The external carotid artery is patent. Mild calcified plaque at the bifurcation. No evidence of dissectio n. The estimated internal carotid stenosis by NASCET criteria is 0%. Vertebral arteries: The right vertebral artery is patent to the cervical portion. The left vertebral artery is patent to the cervical portion. No evidence for dissection or aneurysm. Thyroid Gland: Normal. Cervical soft tissues, upper chest and osseous structures: Normal. IMPRESSION: HEAD IMPRESSION: Normal CTA of the head. NECK IMPRESSION: Normal CTA of the neck. COMMENT: All internal carotid artery stenoses are calculated based on NASCET criteria. Electronically signed by: Gurwinder García MD 07/18/2021 1:23 AM CDT Due to temporary technical issues with the PACS/Fluency reporting system, reports are being signed by the in house radiologist without review as a courtesy to ensure prompt reporting. The interpreting r adiologist is fully responsible for the content of the report.
--- NOTE | 2021-07-19 22:26 | RAD REPORT ---
EXAM DESCRIPTION: CT - Head Brain Wo Cont - 07/19/2021 4:12 am CLINICAL HISTORY: The patient is 60 years old and is Female; [facility] TECHNIQUE: Axial computed tomography images of the head/brain without intravenous contrast. Sagitt al and coronal reformatted images were created and reviewed. This CT exam was performed using one o r more of the following dose reduction techniques: automated exposure control, adjustment of the mA and/or kV according to patient size, and/or use of iterative reconstruction technique. COMPARISON: CT of the head July 17, 2021 FINDINGS: BRAIN: There is diffuse cerebral atrophy present, consistent with this patient's age. No intracranial hemorrhage, mass effect, or midline shift is seen. There are no extra-axial fluid colle ctions. The morocho-white differentiation is maintained. VENTRICLES: Unremarkable. No ventriculomegaly. BONES/JOINTS: No acute fracture. SOFT TISSUES: Unremarkable. SINUSES: Unremarkable as visualized. No acute sinusitis. MASTOID AIR CELLS: Unremarkable as visualized. No mastoid effusion. ORBITS: Unremarkable as visualized. IMPRESSION: No acute intracranial findings. Electronically signed by: Margarita Sosa MD 07/19/2021 12:20 AM CDT Due to temporary technical issues with the PACS/Fluency reporting system, reports are being signed by the in house radiologists without review as a courtesy to insure prompt reporting. The interpreting radiologist is fully responsible for the content of the report.
== END 2021-07-19 01:19 | disposition home or self-care (01) | DRG 62 ==
LOC: ER 22:08 → ERHOLD 07-18 02:20
PROVIDERS: ADMIT Family Medicine; ATTEND Family Medicine
DX: I63.9 Cerebral infarction, unspecified (principal); G81.94 Hemiplegia, unspecified affecting left nondominant side; G45.9 Transient cerebral ischemic attack, unspecified; R29.705 NIHSS score 5; E78.5 Hyperlipidemia, unspecified; Z23 Encounter for immunization; Z20.822 Contact with and (suspected) exposure to COVID-19; Z85.3 Personal history of malignant neoplasm of breast
CPT/HCPCS: 36415; 70450; 70496; 70498; 70544; 70549; 70553; 71045; 80048; 80053; 80061; 80076; 81003; 82947; 83735; 83880; 84439; 84443; 84484; 85025; 85610; 90471; 92977; 93306; 93880; 96365; 96366; 97161; 99291; 99292; A9577; J2997; J7030; Q2035; Q9967; U0003

== ENCOUNTER 2021-08-09 11:09 | Emergency (ER) | payer SELFPAY ==
--- NOTE | 2021-08-09 12:02 | RAD REPORT ---
EXAM DESCRIPTION: CT - Ct Stroke Brain Wo Cont - 08/09/2021 11:56 am CLINICAL HISTORY: WEAKNESS COMPARISON: Head Brain Wo Cont dated 07/18/2021; Head angio dated 07/18/2021 TECHNIQUE: All CT scans are performed using dose optimization technique as appropriate and may inclu de automated exposure control or mA/KV adjustment according to patient size. FINDINGS: No intracranial hemorrhage, hydrocephalus or extra-axial fluid collection.No areas of brai n edema or evidence of midline shift. The paranasal sinuses and mastoids are clear. The calvarium is intact. IMPRESSION: No acute intracranial abnormality.
--- NOTE | 2021-08-09 12:02 | RAD REPORT ---
EXAM DESCRIPTION: RAD - Chest Single View - 08/09/2021 11:55 am CLINICAL HISTORY: weakness COMPARISON: Chest Single View dated 07/17/2021; Chest Single View dated 06/19/2017 FINDINGS: Lines: None. Lungs: No evidence of edema or pneumonia. Pleural: No significant pleural effusions or pneumothorax. Cardiac: The heart size is within normal limits. Bones: No acute fractures. Other: IMPRESSION: No acute cardiopulmonary disease.
[2021-08-09] MEDS ORDERED: NA CHLORIDE 0.9% 1,000 ML ONE (12:15)
[2021-08-09 12:20] LABS: Absolute Lymphocytes (CBC) 1.2 K/uL (0.7-4.9); Basophils % 2.9 % (0-1.3); Hematocrit 42.4 % (36.0-45.0); Lymphocytes % 19.6 % (15.3-44.8); RBC Red Blood Cell Count 4.82 M/uL (3.86-4.86)
[2021-08-09 12:22] LABS: Protime INR 1.16
[2021-08-09 12:41] LABS: BUN Blood Urea Nitrogen 18 mg/dL (7-18); Bicarbonate 28 mmol/L (21-32); Creatine Phosphokinase 50 U/L (26-192); Glucose Level 109 mg/dL (74-106); Magnesium 2.4 mg/dL (1.8-2.4); Sodium Level 144 mmol/L (136-145)
[2021-08-09] MEDS ORDERED: ONDANSETRON 4 MG/2 ML VIAL ONE (12:58)
[2021-08-09 14:03] LABS: Urine Blood Negative (Negative); Urine Glucose Negative (Negative); Urine Protein Negative (Negative); Urine Specific Gravity 1.015 (1.005-1.030); Urine pH 5.5 (5.0-7.0)
--- NOTE | 2021-08-09 14:08 | EDPHYS ---
Physician Documentation [facility] Name: Elvira Thorpe Age: 61 yrs Sex: Female : 1960 Arrival Date: 08/09/2021 Time: 11:10 Bed 14 Private MD: ED Physician Galindo Del Angel HPI: 08/09 12:59 This 61 yrs old Female presents to ER via Ambulatory with complaints of ma2 generalized Weakness, Nausea. 12:59 Onset: The symptoms/episode began/occurred gradually, 5 day(s) ago. Associated signs ma2 and symptoms: Pertinent negatives: ataxia, combativeness, diaphoresis, diarrhea, headache. Severity of symptoms: At their worst the symptoms were moderate in the emergency department the symptoms are unchanged. The patient has experienced similar episodes in the past. Patient is here with nausea, generalized weakness for 2 days, she does not have any focal weakness, she was here with same symptoms in the past and was thought that she may have had TIA. However she never had weakness. Patient denies any other symptoms. She states she has had this couple of times in the past.. Historical: - Allergies: 11:19 No Known Allergies; aa5 - PMHx: 11:19 breast cancer; 18 years ago; TIA 07/19/21; aa5 - PSHx: 11:19 cancerous lump removal; section; hysterectomy; aa5 - Immunization history:: Client reports receiving the 2nd dose of the Covid vaccine. - Social history:: Smoking status: Patient denies any tobacco usage or history of. Patient/guardian denies using alcohol, street drugs, The patient lives with family. - Family history:: not pertinent. ROS: 12:59 Constitutional: Negative for fever, chills, and weight loss. ma2 12:59 All other systems are negative. Exam: 12:59 Radiologist reports: No stroke ma2 12:59 Constitutional: This is a well developed, well nourished patient who is awake, alert, and in no acute distress. Head/Face: Normocephalic, atraumatic. Eyes: Pupils equal round and reactive to light, extra-ocular motions intact. Lids and lashes normal. Conjunctiva and sclera are non-icteric and not injected. Cornea within normal limits. Periorbital areas with no swelling, redness, or edema. ENT: Nares patent. No nasal discharge, no septal abnormalities noted. Tympanic membranes are normal and external auditory canals are clear. Oropharynx with no redness, swelling, or masses, exudates, or evidence of obstruction, uvula midline. Mucous membranes moist. Neck: Trachea midline, no thyromegaly or masses palpated, and no cervical lymphadenopathy. Supple, full range of motion without nuchal rigidity, or vertebral point tenderness. No Meningismus. Chest/axilla: Normal chest wall appearance and motion. Nontender with no deformity. No lesions are appreciated. Cardiovascular: Regular rate and rhythm with a normal S1 and S2. No gallops, murmurs, or rubs. Normal PMI, no JVD. No pulse deficits. Respiratory: Lungs have equal breath sounds bilaterally, clear to auscultation and percussion. No rales, rhonchi or wheezes noted. No increased work of breathing, no retractions or nasal flaring. Abdomen/GI: Soft, non-tender, with normal bowel sounds. No distension or tympany. No guarding or rebound. No evidence of tenderness throughout. Skin: Warm, dry with normal turgor. Normal color with no rashes, no lesions, and no evidence of cellulitis. MS/ Extremity: Pulses equal, no cyanosis. Neurovascular intact. Full, normal range of motion. Neuro: Awake and alert, GCS 15, oriented to person, place, time, and situation. Cranial nerves II-XII grossly intact. Motor strength 5/5 in all extremities. Sensory grossly intact. Cerebellar exam normal. Normal gait. Psych: Awake, alert, with orientation to person, place and time. Behavior, mood, and affect are within normal limits. Vital Signs: 11:15 BP 173 / 82; Pulse 71; Resp 18 S; Temp 98.0(TE); Pulse Ox 100% on R/A; Weight 81.65 kg aa5 (R); 11:55 BP 142 / 72; Pulse 67; Resp 17; Pulse Ox 97% on R/A; ae4 12:00 BP 149 / 66; Pulse 65; Resp 16; Pulse Ox 100% on R/A; ae4 12:30 BP 150 / 67; Pulse 67; Resp 17; Pulse Ox 99% on R/A; ae4 13:00 BP 137 / 69; Pulse 62; Resp 16; Pulse Ox 100% on R/A; ae4 13:30 BP 137 / 68; Pulse 63; Resp 16; Pulse Ox 99% on R/A; ae4 MDM: 11:33 Patient medically screened. ma2 12:59 Differential diagnosis: metabolic disorder, drug effects, Nausea, gastritis, versus ma2 electrolyte disturbance. Versus dehydration. She had no neuro deficit on history or exam. No sign or symptom of TIA. 14:07 Data reviewed: vital signs, nurses notes, EMS record. Counseling: I had a detailed ma2 discussion with the patient and/or guardian regarding: the historical points, exam findings, and any diagnostic results supporting the discharge/admit diagnosis, the presence of at least one elevated blood pressure reading (>120/80) during this emergency department visit, the need for outpatient follow up. Response to treatment: the patient's symptoms have resolved after treatment. 08/09 11:37 Order name: Basic Metabolic Panel; Complete Time: 12:51 ma2 08/09 11:37 Order name: CBC with Diff; Complete Time: 12:51 ma2 08/09 11:37 Order name: CPK; Complete Time: 12:51 ma2 08/09 11:37 Order name: Magnesium; Complete Time: 12:51 ma2 08/09 11:37 Order name: Protime (+inr); Complete Time: 12:51 ma2 08/09 11:37 Order name: Ptt, Activated; Complete Time: 12:51 ma2 08/09 11:37 Order name: CT Stroke Brain w/o Contrast; Complete Time: 12:51 ma2 08/09 11:37 Order name: Stroke CXR 1 View; Complete Time: 12:51 ma2 08/09 11:37 Order name: EKG; Complete Time: 11:38 ma2 08/09 12:35 Order name: Glucose, Ancillary Testing; Complete Time: 12:51 EDMS 08/09 14:02 Order name: Urine Dipstick-Ancillary; Complete Time: 14:07 EDMS 08/09 11:37 Order name: Accucheck; Complete Time: 12:34 ma2 08/09 11:37 Order name: Cardiac monitoring; Complete Time: 12:34 ma2 08/09 11:37 Order name: EKG - Nurse/Tech; Complete Time: 12:34 ma2 08/09 11:37 Order name: IV Saline Lock; Complete Time: 12:11 ky2 08/09 11:37 Order name: Labs collected and sent; Complete Time: 12:11 ky2 08/09 11:37 Order name: NPO; Complete Time: 12:11 2 08/09 11:37 Order name: O2 Per Protocol; Complete Time: 12:11 ky2 08/09 11:37 Order name: O2 Sat Monitoring; Complete Time: 12:11 ky2 08/09 11:37 Order name: Stroke Swallow Screen; Complete Time: 12:34 2 08/09 11:37 Order name: Urine Dipstick-Ancillary (obtain specimen); Complete Time: 14:23 ma2 Administered Medications: 11:45 Drug: NS 0.9% 1000 ml Route: IV; Rate: 1 bolus; Site: left antecubital; ae4 15:26 Follow up: IV Status: Completed infusion; IV Intake: 1000ml ae4 12:43 Drug: Zofran (Ondansetron) 4 mg Route: IVP; Site: left antecubital; ae4 14:23 Follow up: Response: No adverse reaction; Nausea is decreased ae4 14:58 Drug: Rocephin (cefTRIAXone) 1 grams Route: IV; Rate: calculated rate; Site: left ae4 antecubital; 15:26 Follow up: IV Status: Completed infusion; IV Intake: 50ml ae4 Disposition Summary: 08/09/21 14:08 Discharge Ordered Location: Home ma2 Condition: Stable ma2 Diagnosis - Nausea ma2 - Epigastric pain ma2 - Acute cystitis ma2 Followup: ma2 - With: Randall Wong MD - When: Tomorrow - Reason: Continuance of care Discharge Instructions: - Discharge Summary Sheet ma2 - Nausea, Adult ma2 - Urinary Tract Infection, Adult, [id number] ma2 Forms: - Medication Reconciliation Form ma2 - Thank You Letter ma2 - Antibiotic Education ma2 - Prescription Opioid Use ma2 Prescriptions: - Zofran 4 mg Oral Tablet - take 1 tablet by ORAL route every 12 hours As needed; 20 tablet; Refills: 0, ma2 Product Selection Permitted - Bactrim DS 800-160 mg Oral Tablet - take 1 tablet by ORAL route every 12 hours for 7 days; 14 tablet; Refills: 0, ma2 Product Selection Permitted Signatures: Dispatcher [employer] Sriia Vazquez, RN RN aa5 Galindo Del Angel MD MD ma2 Mayank Bruce RN RN ae4
--- NOTE | 2021-08-09 14:08 | ER ---
Nurse's Notes [facility] Name: Elvira Thorpe Age: 61 yrs Sex: Female : 1960 Arrival Date: 08/09/2021 Time: 11:10 Bed 14 Private MD: Diagnosis: Nausea;Epigastric pain;Acute cystitis Presentation: 08/09 11:15 Chief complaint: Patient states: admitted for TIA 07/19/21 with left sided numbness aa5 with symptoms resolved prior to d/c home. Pt reports left arm tingling since yesterday. Denies any leg symptoms or facial symptoms. Pt currently only reports tingling to left fingertips and nausea. 11:15 Coronavirus screen: At this time, the client does not indicate any symptoms associated aa5 with coronavirus-19. Ebola Screen: No symptoms or risks identified at this time. An acute neurological deficit is present. Pre-hospital glucose is not applicable to this patient. Initial Sepsis Screen: Does the patient meet any 2 criteria? No. Patient's initial sepsis screen is negative. Does the patient have a suspected source of infection? No. Patient's initial sepsis screen is negative. Risk Assessment: Do you want to hurt yourself or someone else? Patient reports no desire to harm self or others. Onset of symptoms was August 08, 2021. 11:15 Acuity: ROLAN 2 aa5 11:15 Method Of Arrival: Ambulatory aa5 Stroke Activation: Symptom onset > 6 hours Physician: Stroke Attending; Name: ; Notified At: ; Arrived At: Physician: Chief Stroke Resident; Name: ; Notified At: ; Arrived At: Physician: Stroke Resident; Name: ; Notified At: ; Arrived At: Physician: ED Attending; Name: ; Notified At: ; Arrived At: Physician: ED Resident; Name: ; Notified At: ; Arrived At: Historical: - Allergies: 11:19 No Known Allergies; aa5 - PMHx: 11:19 breast cancer; 18 years ago; TIA 07/19/21; aa5 - PSHx: 11:19 cancerous lump removal; section; hysterectomy; aa5 - Immunization history:: Client reports receiving the 2nd dose of the Covid vaccine. - Social history:: Smoking status: Patient denies any tobacco usage or history of. Patient/guardian denies using alcohol, street drugs, The patient lives with family. - Family history:: not pertinent. Screenin:59 Abuse screen: Denies threats or abuse. Nutritional screening: No deficits noted. ae4 Tuberculosis screening: No symptoms or risk factors identified. Fall Risk None identified. Assessment: 11:32 General: Appears in no apparent distress. comfortable, Behavior is calm, cooperative. ae4 Pain: Denies pain. Neuro: Level of Consciousness is awake, alert, obeys commands, Oriented to person, place, time, situation, Appropriate for age. Cardiovascular: Heart tones S1 S2 present Patient's skin is warm and dry. Respiratory: Airway is patent is compromised Respiratory effort is even, unlabored, Respiratory pattern is regular, symmetrical. GI: Reports nausea. : No signs and/or symptoms were reported regarding the genitourinary system. Denies burning with urination, urinary frequency. EENT: Wears glasses. Derm: Skin is pale. Musculoskeletal: No signs and/or symptoms reported regarding the musculoskeletal system. 13:44 Reassessment: Provider at bedside discussing plan of care. ae4 14:23 Reassessment: Awaiting delivery of medication from pharmacy. Spoke to pharmacy ae4 swimming pool service technician via telephone. 14:58 Reassessment: Patient appears in no apparent distress at this time. Patient is alert, ae4 oriented x 3, equal unlabored respirations, skin warm/dry/pink. Medication currently infusing. Patient states feeling better. Vital Signs: 11:15 BP 173 / 82; Pulse 71; Resp 18 S; Temp 98.0(TE); Pulse Ox 100% on R/A; Weight 81.65 kg aa5 (R); 11:55 BP 142 / 72; Pulse 67; Resp 17; Pulse Ox 97% on R/A; ae4 12:00 BP 149 / 66; Pulse 65; Resp 16; Pulse Ox 100% on R/A; ae4 12:30 BP 150 / 67; Pulse 67; Resp 17; Pulse Ox 99% on R/A; ae4 13:00 BP 137 / 69; Pulse 62; Resp 16; Pulse Ox 100% on R/A; ae4 13:30 BP 137 / 68; Pulse 63; Resp 16; Pulse Ox 99% on R/A; ae4 ED Course: 11:10 Patient arrived in ED. as 11:15 Arm band placed on. aa5 11:23 Triage completed. aa5 11:29 Mayank Bruce, RN is Primary Nurse. ae4 11:30 Bed in low position. Call light in reach. Side rails up X 1. Adult w/ patient. Cardiac ae4 monitor on. Pulse ox on. NIBP on. Warm blanket given. 11:33 Galindo Del Angel MD is Attending Physician. ma2 11:40 Inserted saline lock: 22 gauge in left antecubital area, using aseptic technique. Blood ae4 collected. 11:55 Stroke CXR 1 View In Process Unspecified. EDMS 11:56 CT Stroke Brain w/o Contrast In Process Unspecified. EDMS 14:08 Randall Wong MD is Referral Physician. ma2 15:25 No provider procedures requiring assistance completed. IV discontinued, intact, ae4 bleeding controlled, No redness/swelling at site. Pressure dressing applied. Administered Medications: 11:45 Drug: NS 0.9% 1000 ml Route: IV; Rate: 1 bolus; Site: left antecubital; ae4 15:26 Follow up: IV Status: Completed infusion; IV Intake: 1000ml ae4 12:43 Drug: Zofran (Ondansetron) 4 mg Route: IVP; Site: left antecubital; ae4 14:23 Follow up: Response: No adverse reaction; Nausea is decreased ae4 14:58 Drug: Rocephin (cefTRIAXone) 1 grams Route: IV; Rate: calculated rate; Site: left ae4 antecubital; 15:26 Follow up: IV Status: Completed infusion; IV Intake: 50ml ae4 Intake: 15:26 IV: 50ml; Total: 50ml. ae4 15:26 IV: 1000ml; Total: 1050ml. ae4 Outcome: 14:08 Discharge ordered by . ma2 15:25 Discharged to home ambulatory, with family. ae4 15:25 Condition: stable 15:25 Discharge instructions given to patient, Instructed on discharge instructions, follow up and referral plans. medication usage, Demonstrated understanding of instructions, follow-up care, medications, Prescriptions given X 2. 15:27 Patient left the ED. ae4 Signatures: Dispatcher [employer] EDMS Stephenie Johnson Audri, RN RN aa5 Galindo Del Angel MD MD maMayank Pascual, RN RN ae4 Corrections: (The following items were deleted from the chart) 11:18 11:18 Arm band placed on aa5 aa5 11:24 11:15 BP 173 / 82; Pulse 71bpm; Resp 18bpm; Spontaneous; Pulse Ox 100% RA; Temp 98.0F aa5 Temporal; aa5 11:29 11:15 Chief complaint: Patient states: admitted for TIA 07/19/21 with left sided aa5 numbness with symptoms resolved prior to d/c home. Pt reports left arm tingling since yesterday. Denies any leg symptoms or facial symptoms. aa5 11 11:15 Chief complaint: Patient states: admitted for TIA 07/19/21 with left sided aa5 numbness with symptoms resolved prior to d/c home. Pt reports left arm tingling since yesterday. Denies any leg symptoms or facial symptoms. Pt currently only reports tingling to left fingertips. aa5 15:02 15:00 BP 142 / 72; Pulse 67bpm; Resp 17bpm; Pulse Ox 97% RA; ae4 ae4
[2021-08-09] MEDS ORDERED: CEFTRIAXONE 1 GM/NS 50 ML 1 GM/50 ML BAG IV SCH (15:00)
[2021-08-09 15:33] VITALS: TEMP 98
[2021-08-09 15:39] VITALS: BP 137/68; O2SAT 99
== END 2021-08-09 15:27 | disposition home or self-care (01) ==
LOC: ER 11:09
DX: N30.00 Acute cystitis without hematuria (principal); R11.0 Nausea; R10.13 Epigastric pain
CPT/HCPCS: 36415; 70450; 71045; 80048; 81003; 82550; 82947; 83735; 85025; 85610; 85730; 93005; 96361; 96365; 96375; 99284; J0696; J2405; J7030

== ENCOUNTER 2021-10-29 15:22 | Emergency (ER) | payer SELFPAY ==
--- OUTSIDE RECORDS SUMMARY | 2021-10-29 15:25 | XMS REPORT | Continuity of Care Document ---
:1960 Author Organization [facility] t Address [address] [place] [address] Care Team Providers Name Role Phone RAS SAEZ Primary Care Physician Unavailable BRENDAN WALTER Attending Clinician Unavailable Saba VIRGEN S Attending Clinician Flori WALTER Admitting Clinician Unavailable Problems Condition Condition Condition Status Onset Resolution Last Treating Co mments Source Name Details Category Date Date Treatment Clinician Date No known No known Disease Unive rs active active ity of problems problems [facility] Allergies, Adverse Reactions, Alerts Allergy Allergy Status Severity Reaction(s) Onset Inactive Treating Comm ents Source Name Type Date Date Clinician NO KNOWN Drug Active Univers ALLERGIE Class ity of S [facility] Social History Social Habit Start Date Stop Date Quantity Comments Source Exposure to Not sure [facility] SARS-CoV-2 (event) Medica l Branch Sex Assigned At [birth year] [facility] 00:00:00 00:00:00 [facility] Smoking Status Start Date Stop Date Source Unknown if ever smoked [facility] Medications Ordered Filled Start Stop Current Ordering Indication Dosage Frequency Signature Comments Components Source Medication Medication Date Date Medication? Clinician (SIG) Name Name iopamidol 2020-10- No [id number] 120mL 120 mL, Univers (ISOVUE 0-26 10-26 Intravenou ity o f 370-500 mL) 11:45: 11:45 s, ONCE, 1 [place] injection 00 :00 dose, On Medica l 120 mL Tue Branch 08/12/21 at 0645, Routine ondansetron 2020-10 No 4mg 4 mg, Slow Univers (ZOFRAN 008-12 IV Push, ity of (PF)) 11:00: 10:11 ONCE, 1 [place] injection 4 00 :00 dose, On Medi carlos mg Tue Branch 08/12/21 at 0600, LAURI maalox:diph 2020-10 No 15mL 15 mL, Uni vers enhydrAMINE 08-12 Oral, ity of :lidocaine 11:00: 10:11 ONCE, 1 Will as 2 % viscous 00 :00 dose, On Medi carlos 1:1:1 Tue Branch (FIRST-MOUT 08/12/21 HWASH BLM) at 0600, oral Routine suspension 15 mL ondansetron 2020-10 No 4mg 4 mg, Slow Univers (ZOFRAN 08-12 IV Push, ity of (PF)) 10:45: 09:34 ONCE, 1 [place] injection 4 00 :00 dose, On Medi carlos mg e Branch 08/12/21 at 0545, LAURI No known 2020-10 No Univers medications ity of 04:47: [address] Vital Signs Vital Name Observation Time Observation Value Comments Source Respiratory rate 2021-08-12 11:30:00 18 /min [facility] Systolic blood 2021-08-12 11:00:00 123 mm[Hg] Univer sity of pressure [facility] Diastolic blood 2021-08-12 11:00:00 62 mm[Hg] [facility] Heart rate 2021-08-12 11:00:00 59 /min [facility] Oxygen saturation in 2021-08-12 10:00:00 99 /min [facility] Arterial blood by [facility] Pulse oximetry [place] Body temperature 2021-08-12 09:19:00 37.28 Sarah [facility] Body height 2021-08-12 09:19:[address] [facility] Body weight 2021-08-12 09:19:[address] [facility] BMI 2021-08-12 09:19:00 31.89 kg/m2 [facility] Procedures Procedure Date / Time Performing Clinician Source Performed EKG-12 LEAD 2021-08-12 11:38:11 Brendan Walter [facility] CT ABDOMEN PELVIS W 2021-08-12 10:40:23 Brendan Walter [facility] CONTRAST [facility] XR CHEST 1 VW 2021-08-12 09:39:46 Brendan Walter [facility] LIPASE 2021-08-12 09:28:00 Brendan Walter [facility] TROPONIN I 2021-08-12 09:28:00 Brendan Walter [facility] COMP. METABOLIC PANEL 2021-08-12 09:28:00 Brendan Walter [facility] ([id number]) [facility] CBC WITH DIFF 2021-08-12 09:28:00 Brendan Walter [facility] PROTHROMBIN TIME / INR 2021-08-12 09:28:00 Brendan Walter [facility] ACTIVATED PARTIAL 2021-08-12 09:28:00 Brendan Walter [facility] NOTICE OF PRIVACY 2021-08-12 09:06:25 Doctor Unassigned, No [facility] PRACTICES Name [facility] CONSENT/REFUSAL FOR 2021-08-12 09:05:01 [facility] Name [facility] Encounters Start End Encounter Admission Attending Care Care Encounter Source Date/Time Date/Time Type Type Clinicians Facility Department ID 2021-08-12 2021-08-12 Emergency X [facility] ERT [id number] Univers 04:15:00 06:52:[facility] 2021-08-12 2021-08-12 Emergency [facility] [id number] Univers 04:15:00 06:52:00 Brendan Ruby Kamas [id number] [facility] [id number] [facility] [id number] [place] [id number] [place] Results Test Description Test Time Test Comments Results Result Comments Source TROPONIN I 2021-08-12 10:21:24 Test Item Value Reference Range Interpretation Comme nts TROPONIN I (test code = <0.012 See_Comment [Au tomated message] The [id number]) system which ge nerated this result tra nsmitted reference range : <=0.034 ng/mL. The refe rence range was not u sed to interpret this result as normal/abnormal . GYPSY (test code = GYPSY) Reference (Normal) Range (defined by the 99th percentile reference limit): <= 0.034 ng/mL Note: Cardiac troponin begins to rise 3-4 hours after the onset of ischemia. Repeat in 4-6 hours if the sample was drawn within 3-4 hours of the onset of the symptom and found normal. Diagnosis of myocardial injury is made with acute changes in cTn concentrations with at least one serial sample above the 99th percentile upper reference limit (URL), taken together with the patient's clinical presentation. Biotin has been reported to cause a negative bias, interpret results relative to patient's use of biotin. Lab Interpretation Normal (test code = 14993-2) [facility]IC PAN[facility] ([id number])2021-08-12 10:09:43 Test Item Value Reference Range Interpretation Comments NA (test code = 140 mmol/L 135-145 4452104489) K (test code = 3.9 mmol/L 3.5-5.0 4550933118) CL (test code = 107 mmol/L 98-108 4504627452) CO2 TOTAL (test code = 23 mmol/L 23-31 8831461448) AGAP (test code = 2-16 8350817757) BUN (test code = 15 mg/dL 7-23 6211162570) GLUCOSE (test code = 102 mg/dL 70-110 4874455851) CREATININE (test code = 0.76 mg/dL 0.50-1.04 3486294925) TOTAL BILI (test code = 0.8 mg/dL 0.1-1.0 1136657936) CALCIUM (test code = 10.1 mg/dL 8.6-10.6 2500493881) T PROTEIN (test code = 7.1 g/dL 6.3-8.2 1215677560) ALBUMIN (test code = 4.5 g/dL 3.5-5.0 0814296209) ALK PHOS (test code = 88 U/L 34-122 9694387776) ALTv (test code = 42 U/L 5-35 H 1742-6) AST(SGOT) (test code = 41 U/L 13-40 H 6511690652) eGFR (test code = mL/min/1.73m2 6884258631) GYPSY (test code = GYPSY) Association of Glomerular Filtration Rate (GFR) and Staging of Kidney Disease* + --+ --+ ------+| GFR (mL/min/1.73 m2) ?| With Kidney Damage ?| ?Without Kidney Damage+ --------+ --------+ +| ?>90 ?| ?Stage one ?| ? Normal ?+ ---+ ---+ -------+| ?60-89 ?| ?Stage two ?| ? Decreased GFR ? + --+ --+ ------+| ?30-59 ?| ?Stage three ?| ? Stage three ? + --+ --+ ------+| ?15-29 ?| ?Stage four ? | ? Stage four ?+ ---+ ---+ -------+| ?<15 (or dialysis) ? ?| ?Stage five ? | ? Stage five ?+ ---+ ---+ -------+ *Each stage assumes the associated GFR level has been in effect for at least three months. ?Stages 1 to 5, with or without kidney disease, indicate chronic kidney disease. Notes: Determination of stages one and two (with eGFR >59mL/min/1.73 m2) requires estimation of kidney damage for at least three months as defined by structural or functional abnormalities of the kidney, manifested by either:Pathological abnormalities or Markers of kidney damage (including abnormalities in the composition of the blood or urine or abnormalities in imaging tests). Lab Interpretation Abnormal (test code = 04789-9) [facility], [id number] 10:09:23 Test Item Value Reference Range Interpretation Comments LIPASE (test code = 0113103834) 157 U/L 0-220 Lab Interpretation (test code = Normal 71037-2) [facility] PasoaPTT2021-10-26 10:00:22 Test Item Value Reference Range Interpretation Comments APTT Patient (test See_Comment [Automat ed code = 3173-2) message] The system which generated this result transmitted reference range : 23 - 38 Seconds . The reference range was not used to interpr et this result as normal/abnormal . GYPSY (test code = GYPSY) The [facility] [[email or web address]] patient population mean normal value for aPTT is 30 seconds. Lab Interpretation Normal (test code = 37040-3) [facility] PasoPROTHROMBIN TIME / [id number] 09:58:00 Test Item Value Reference Range Interpretation Comments PROTIME PATIENT (test See_Comment [Auto mated message] code = 5964-2) The system wh ich generated this result transmitted ref erence range: 12.0 - 1 4.7 Seconds. The re ference range was not u sed to interpret this result as normal/abnor mal. INR (test code = 6301-6) Nor mal INR <1.1; Warfarin Therap eutic range 2.0 to 3. 0 or 2.5 to 3.5, dep ending upon the indica tions. Lab Interpretation (test Normal code = 62786-6) [facility] PasoCB WITH [id number] 09:39:58 Test Item Value Reference Range Interpretation Comments WBC (test code = See_Comment [Automated 6990-2) message] The sy stem which generated this result transmitted reference range : 4.30 - 11.10 10*3/?L. The reference range was not used to interpret this result as normal/abnormal . RBC (test code = See_Comment [Automated 019-8) message] The sy stem which generated this result transmitted reference range : 3.93 - 5.25 10*6/?L. The reference range was not used to interpret this result as normal/abnormal . HGB (test code = 14.3 g/dL 11.6-15.0 718-7) HCT (test code = 42.5 % 35.7-45.2 4544-3) MCV (test code = 87.6 fL 80.6-95.5 787-2) MCH (test code = 29.5 pg 25.9-32.8 785-6) MCHC (test code = 33.6 g/dL 31.6-35.1 786-4) RDW-SD (test code = 38.5 fL 39.0-49.9 L 41133-5) RDW-CV (test code = 12.0 % 12.0-15.5 788-0) PLT (test code = See_Comment [Automated 777-3) message] The sy stem which generated this result transmitted reference range : 166 - 358 10*3/ ?L. The reference r liberty was not used to interpret this result as normal/abnormal . MPV (test code = 11.6 fL 9.5-12.9 29268-0) NRBC/100 WBC (test See_Comment [Automat ed code = 9483674035) message] The system which generated this result transmitted reference range : 0.0 - 10.0 /100 WBCs. The refer ence range was not u sed to interpret th is result as normal/abnormal . NRBC x10^3 (test code <0.01 See_Comment [Auto mated = 3025278045) message] The s ystem which generated this result transmitted reference range : 10*3/?L. The reference range was not used to interpret this result as normal/abnormal . GRAN MAT (NEUT) % 62.4 % (test code = 770-8) IMM GRAN % (test code 0.10 % = 6014800009) LYMPH % (test code = 26.1 % 736-9) MONO % (test code = 10.2 % 5905-5) EOS % (test code = 0.9 % 713-8) BASO % (test code = 0.3 % 706-2) GRAN MAT x10^3(ANC) 4.27 10*3/uL 1.88-7.09 (test code = 1519013216) IMM GRAN x10^3 (test <0.03 0.00-0.06 code = 2257844774) LYMPH x10^3 (test code 1.79 10*3/uL 1.32-3.29 = 731-0) MONO x10^3 (test code 0.70 10*3/uL 0.33-0.92 = 742-7) EOS x10^3 (test code = 0.06 10*3/uL 0.03-0.39 711-2) BASO x10^3 (test code <0.03 0.01-0.07 = 704-7) Lab Interpretation Abnormal (test code = 96088-0) [facility] Paso[facility]AG MAMM BILATERAL CAD [id number] 11:10:51 - DIAG MAMM BILATERAL CAD DIGITALBILATERAL DIGITAL DIAGNOSTIC MAMMOGRAM WITH CAD: 12/26/2018CLINICAL: Abnormal clinical breast exam. Current mammographic images were evaluated by either a [employer] M-Vu or a Antavoer CAD (computer aided detection system). Comparison is made to exams dated 06/17/2015 mammogram - [facility], 05/21/2014 mammogram, 03/06/2014 mammogram - [facility] and 12/22/2012 mammogram - [facility]. The tissue of both breasts is heterogeneously dense. This may lower the sensitivity of mammography. There are post operative findings and biopsy clips in the right breast. No suspicious mass, architectural distortion, malignant type calcification, or lymph node abnormality detected. INCOMPLETE ASSESSMENT: ADDITIONAL IMAGING EVALUATION RECOMMENDEDUltrasound pending for additional evaluation. Resume annual screening mammography in one year. - BREAST ULTRASOUND BILATERALULTRASOUND OF BOTH BREASTS AND BOTH AXILLA: 12/26/2018Comparison is made to exams dated 06/17/2015 mammogram - [facility], 05/21/2014 mammogram, 03/06/2014 mammogram - [facility] and 12/22/2012 mammogram - [facility]. Real-time ultrasound of both breasts and both axilla was performed. No abnormalities were seen sonographically in either breast or either axilla. Clinical breast exam was unremarkable.IMPRESSION: NEGATIVE There is no sonographic evidence of malignancy. Patient has been informed that she has areas of dense breast tissue that could make it difficult to find a small cancer. A screening mammogram and supplemental ultrasound for dense breast tissue is recommended in 1 year.Bhavani Cuevas M.D. dm/:12/27/2018 11:10:51 Wind Turbine Machinist: Roya Whiting , [facility] sent: BIRADS 1-2Combo FU Letter Mammogram BI-RADS: 0 Indeterminate Ultrasound BI-RADS: 1 NegativeBREAST ULTRASOUND [id number] 11:10:51 - DIAG MAMM BILATERAL CAD DIGITALBILATERAL DIGITAL DIAGNOSTIC MAMMOGRAM WITH CAD: 12/26/2018CLINICAL: Abnormal clinical breast exam. Current mammographic images were evaluated by either a [employer] M-Vu or a TMS ImageChecker CAD (computer aided detection system). Comparison is made to exams dated 06/17/2015 mammogram - [facility], 05/21/2014 mammogram, 03/06/2014 mammogram - [facility] and 12/22/2012 mammogram - [facility]. The tissue of both breasts is heterogeneously dense. This may lower the sensitivity of mammography. There are post operative findings and biopsy clips in the right breast. No suspicious mass, architectural distortion, malignant type calcification, or lymph node abnormality detected. INCOMPLETE ASSESSMENT: ADDITIONAL IMAGING EVALUATION RECOMMENDEDUltrasound pending for additional evaluation. Resume annual screening mammography in one year. - BREAST ULTRASOUND BILATERALULTRASOUND OF BOTH BREASTS AND BOTH AXILLA: 12/26/2018Comparison is made to exams dated 06/17/2015 mammogram - [facility], 05/21/2014 mammogram, 03/06/2014 mammogram - [facility] and 12/22/2012 mammogram - [facility]. Real-time ultrasound of both breasts and both axilla was performed. No abnormalities were seen sonographically in either breast or either axilla. Clinical breast exam was unremarkable.IMPRESSION: NEGATIVE There is no sonographic evidence of malignancy. Patient has been informed that she has areas of dense breast tissue that could make it difficult to find a small cancer. A screening mammogram and supplemental ultrasound for dense breast tissue is recommended in 1 year.Bhavani Cuevas M.D. dm/:12/27/2018 11:10:51 Wind Turbine Machinist: Roya Whiting , [facility] sent: BIRADS 1-2Combo FU Letter Mammogram BI-RADS: 0 Indeterminate Ultrasound BI-RADS: 1 Negative"
--- NOTE | 2021-10-29 16:48 | RAD REPORT ---
EXAM DESCRIPTION: CT - Head Brain Wo Cont - 10/29/2021 4:39 pm CLINICAL HISTORY: Dizziness;Weakness COMPARISON: Ct Stroke Brain Wo Cont dated 08/09/2021; Head Brain Wo Cont dated 07/18/2021 TECHNIQUE: All CT scans are performed using dose optimization technique as appropriate and may inclu de automated exposure control or mA/KV adjustment according to patient size. FINDINGS: No intracranial hemorrhage, hydrocephalus or extra-axial fluid collection.No areas of brai n edema or evidence of midline shift. Mild paranasal sinus thickening. The calvarium is intact. IMPRESSION: No acute intracranial abnormality.
[2021-10-29 17:41] LABS: Absolute Lymphocytes (CBC) 1.3 K/uL (0.7-4.9); Hematocrit 40.4 % (36.0-45.0); Lymphocytes % 23.9 % (15.3-44.8); MPV 9.9 fL (7.6-11.3); RBC Red Blood Cell Count 4.55 M/uL (3.86-4.86)
--- NOTE | 2021-10-29 17:43 | RAD REPORT ---
EXAM DESCRIPTION: RAD - Chest Single View - 10/29/2021 5:29 pm CLINICAL HISTORY: DYSPNEA COMPARISON: Chest Single View dated 08/09/2021; Chest Single View dated 07/17/2021; Chest Single View dated 06/19/2017 FINDINGS: Lines: None. Lungs: No evidence of edema or pneumonia. Pleural: No significant pleural effusions or pneumothorax. Cardiac: Cardiomegaly. Bones: No acute fractures. Other: Surgical clips in the right axilla. IMPRESSION: No acute cardiopulmonary disease.
--- NOTE | 2021-10-29 17:46 | ER ---
Nurse's Notes [facility] Name: Elvira Thorpe Age: 61 yrs Sex: Female : 1960 Arrival Date: 10/29/2021 Time: 15:26 Bed 3 Private MD: Louisa Michelle C Diagnosis: SARS-associated coronavirus as the cause of diseases classified elsewhere Presentation: 10/29 16:00 Chief complaint: Patient states: pt complaints of headache and weakness all over since jl7 3pm today; Pt was here July for stroke. Coronavirus screen: Vaccine status: Patient reports receiving the 2nd dose of the covid vaccine. Client denies travel out of the [place] in the last 14 days. Ebola Screen: Patient negative for fever greater than or equal to 101.5 degrees Fahrenheit, and additional compatible Ebola Virus Disease symptoms Patient denies exposure to infectious person. Patient denies travel to an Ebola-affected area in the 21 days before illness onset. Initial Sepsis Screen: Does the patient meet any 2 criteria? No. Patient's initial sepsis screen is negative. Does the patient have a suspected source of infection? No. Patient's initial sepsis screen is negative. Risk Assessment: Do you want to hurt yourself or someone else? Patient reports no desire to harm self or others. Onset of symptoms was October 29, 2021 at 15:00. 16:00 Method Of Arrival: Ambulatory jl7 16:00 Acuity: ROLAN 3 jl7 Triage Assessment: 16:04 Headache History: The patient has had previous headaches and this one is more severe jl7 than previous episodes. General: Appears uncomfortable, well groomed, well developed, well nourished, Behavior is calm, cooperative, appropriate for age. Pain: Pain currently is 5 out of 10 on a pain scale. Pain began suddenly. Pain: Also complains of nausea. Neuro: Level of Consciousness is awake, alert, obeys commands, Oriented to person, place, time, situation, Appropriate for age Roll Icer Machine are equal bilaterally Moves all extremities. Speech is normal, Pupils are PERRLA. Historical: - Allergies: 16:03 No Known Allergies; jl7 - Home Meds: 16:03 multivitamin with minerals Oral [Active]; jl7 - PMHx: 16:03 breast cancer; 18 years ago; TIA 07/19/21; jl7 - PSHx: 16:03 cancerous lump removal; section; hysterectomy; jl7 - Immunization history:: Adult Immunizations up to date. - Social history:: Smoking status: Patient denies any tobacco usage or history of. Screenin:17 Abuse screen: Denies threats or abuse. Denies injuries from another. Nutritional bp screening: No deficits noted. Tuberculosis screening: No symptoms or risk factors identified. Fall Risk None identified. Assessment: 16:05 General: SEE TRIAGE NOTE. bp 17:17 Reassessment: No changes from previously documented assessment. Patient and/or family bp updated on plan of care and expected duration. Pain level reassessed. PT RETURNED FROM CT. ALL CURRENT ORDERS COMPLETED. 18:28 Reassessment: PT D/C HOME AMBULATORY WITH FAMILY, DX WITH SARS-COVID. bp Vital Signs: 16:00 BP 147 / 72; Pulse 80; Resp 17; Temp 98.6; Pulse Ox 100% ; Weight 73.94 kg; Height 5 jl7 ft. 7 in. (170.18 cm); Pain 5/10; 17:13 BP 122 / 66; Pulse 56; Resp 17; Pulse Ox 100% ; bp 18:27 BP 137 / 66; Pulse 60; Resp 16; Pulse Ox 97% ; bp 16:00 Body Mass Index 25.53 (73.94 kg, 170.18 cm) jl7 ED Course: 15:26 Patient arrived in ED. am2 15:26 Louisa Michelle FNP is Private Physician. am2 16:03 Triage completed. jl7 16:06 Arm band placed on right wrist. jl7 16:12 Caleb Navarro, RN is Primary Nurse. bp 16:13 Zachary Anderson PA is PHCP. jr8 16:13 Yeyo Sebastian MD is Attending Physician. jr8 16:25 EKG done, by ED staff, reviewed by Zachary KOLB. lt3 16:36 Initial lab(s) drawn, by wv, sent to lab. COVID swab sent to lab. Inserted saline lock: lt3 22 gauge in left antecubital area, using aseptic technique. 16:36 COVID-19 SARS RT PCR (Document "Date of Onset" if Symptomatic) Sent. lt3 16:39 CT Head Brain wo Cont In Process Unspecified. EDMS 17:17 Patient has correct armband on for positive identification. Bed in low position. Call bp light in reach. Side rails up X2. Adult w/ patient. 17:28 XRAY Chest (1 view) In Process Unspecified. EDMS 18:28 No provider procedures requiring assistance completed. IV discontinued, intact, bp bleeding controlled, No redness/swelling at site. Pressure dressing applied. Administered Medications: No medications were administered Outcome: 17:45 Discharge ordered by MD. gutierrez 18:28 Discharged to home ambulatory, with family. bp 18:28 Condition: stable 18:28 Discharge instructions given to patient, Instructed on discharge instructions, follow up and referral plans. medication usage, Demonstrated understanding of instructions, follow-up care, medications, Prescriptions given X 1. 18:29 Patient left the ED. bp Signatures: Dispatcher [employer] EDMS Zachary Anderson PA PA jr8 Leal, Jahala, RN RN jl7 Margarita Art am2 Caleb Navarro, RN RN Beatriz Steel 3
--- NOTE | 2021-10-29 17:46 | EDPHYS ---
Physician Documentation [facility] Name: Elvira Thorpe Age: 61 yrs Sex: Female : 1960 Arrival Date: 10/29/2021 Time: 15:26 Bed 3 Private MD: Louisa Michelle C ED Physician Yeyo Sebastian HPI: 10/29 17:30 This 61 yrs old Female presents to ER via Ambulatory with complaints of jr8 General Weakness, Headache, Nausea. 17:30 This is a 61-year-old female patient that presented to the emergency room with jr8 complaints of general weakness, headache, nausea, dizziness. Patient had a TIA this past July and was concerned because some of the symptoms she was exhibiting today mimicked which she had in the past. Came in for formal evaluation to make sure she was not having another TIA. Denies any fevers or other symptoms at this time.. Severity of symptoms: At their worst the symptoms were moderate in the emergency department the symptoms have improved mildly. It is unknown whether or not the patient has had similar symptoms in the past. The patient has not recently seen a physician. Historical: - Allergies: 16:03 No Known Allergies; jl7 - Home Meds: 16:03 multivitamin with minerals Oral [Active]; jl7 - PMHx: 16:03 breast cancer; 18 years ago; TIA 07/19/21; jl7 - PSHx: 16:03 cancerous lump removal; section; hysterectomy; jl7 - Immunization history:: Adult Immunizations up to date. - Social history:: Smoking status: Patient denies any tobacco usage or history of. ROS: 17:30 Eyes: Negative for injury, pain, redness, and discharge, ENT: Negative for injury, jr8 pain, and discharge, Neck: Negative for injury, pain, and swelling, Cardiovascular: Negative for chest pain, palpitations, and edema, Respiratory: Negative for shortness of breath, cough, wheezing, and pleuritic chest pain, Back: Negative for injury and pain, MS/Extremity: Negative for injury and deformity, Skin: Negative for injury, rash, and discoloration. 17:30 Abdomen/GI: Positive for nausea, Negative for abdominal pain, vomiting, diarrhea. 17:30 Neuro: Positive for dizziness, headache. Exam: 17:30 Constitutional: This is a well developed, well nourished patient who is awake, alert, jr8 and in no acute distress. Neck: Trachea midline, no thyromegaly or masses palpated, and no cervical lymphadenopathy. Supple, full range of motion without nuchal rigidity, or vertebral point tenderness. No Meningismus. Cardiovascular: Regular rate and rhythm with a normal S1 and S2. No gallops, murmurs, or rubs. Normal PMI, no JVD. No pulse deficits. Respiratory: Lungs have equal breath sounds bilaterally, clear to auscultation and percussion. No rales, rhonchi or wheezes noted. No increased work of breathing, no retractions or nasal flaring. Abdomen/GI: Soft, non-tender, with normal bowel sounds. No distension or tympany. No guarding or rebound. No evidence of tenderness throughout. Back: No spinal tenderness. No costovertebral tenderness. Full range of motion. Skin: Warm, dry with normal turgor. Normal color with no rashes, no lesions, and no evidence of cellulitis. MS/ Extremity: Pulses equal, no cyanosis. Neurovascular intact. Full, normal range of motion. Neuro: Awake and alert, GCS 15, oriented to person, place, time, and situation. Cranial nerves II-XII grossly intact. Motor strength 5/5 in all extremities. Sensory grossly intact. Cerebellar exam normal. Normal gait. Vital Signs: 16:00 BP 147 / 72; Pulse 80; Resp 17; Temp 98.6; Pulse Ox 100% ; Weight 73.94 kg; Height 5 jl7 ft. 7 in. (170.18 cm); Pain 5/10; 17:13 BP 122 / 66; Pulse 56; Resp 17; Pulse Ox 100% ; bp 18:27 BP 137 / 66; Pulse 60; Resp 16; Pulse Ox 97% ; bp 16:00 Body Mass Index 25.53 (73.94 kg, 170.18 cm) jl7 MDM: 16:13 Patient medically screened. jr8 17:45 Data reviewed: vital signs, nurses notes, lab test result(s), radiologic studies, CT jr8 scan. Data interpreted: Pulse oximetry: on room air is 100 %. Interpretation: normal. Counseling: I had a detailed discussion with the patient and/or guardian regarding: the historical points, exam findings, and any diagnostic results supporting the discharge/admit diagnosis, lab results, radiology results, the need for outpatient follow up, a family practitioner, to return to the emergency department if symptoms worsen or persist or if there are any questions or concerns that arise at home. 10/29 16:12 Order name: Basic Metabolic Panel; Complete Time: 18:02 1 10/29 16:12 Order name: CBC with Diff; Complete Time: 17:44 1 10/29 16:12 Order name: LFT's; Complete Time: 18:02 10/29 16:12 Order name: Magnesium; Complete Time: 18:02 10/29 16:12 Order name: XRAY Chest (1 view); Complete Time: 17:47 1 10/29 16:12 Order name: COVID-19 SARS RT PCR (Document "Date of Onset" if Symptomatic); Complete ll1 Time: 17:42 10/29 16:12 Order name: EKG; Complete Time: 16:14 1 10/29 16:12 Order name: Cardiac monitoring; Complete Time: 16:50 [facility] 10/29 16:12 Order name: EKG - Nurse/Tech; Complete Time: 16:25 10/29 16:12 Order name: IV Saline Lock; Complete Time: 16:36 1 10/29 16:12 Order name: Labs collected and sent; Complete Time: 16:50 10/29 16:12 Order name: O2 Per Protocol; Complete Time: 16:50 10/29 16:12 Order name: O2 Sat Monitoring; Complete Time: 16:50 [facility] 10/29 16:22 Order name: CT Head Brain wo Cont; Complete Time: 17:01 jr8 Administered Medications: No medications were administered Disposition Summary: 10/29/21 17:45 Discharge Ordered Location: Home jr Problem: new jr8 Symptoms: have improved jr8 Condition: Stable jr8 Diagnosis - SARS-associated coronavirus as the cause of diseases classified elsewhere jr8 Followup: jr8 - With: Private Physician - When: 2 - 3 days - Reason: Recheck today's complaints, Continuance of care, Re-evaluation by your physician Discharge Instructions: - Discharge Summary Sheet jr8 - COVID-19 jr8 - 10 Things You Can Do to Manage Your COVID-19 Symptoms at Home - [facility] - COVID-19: Quarantine vs. Isolation - [facility] jr8 Forms: - Medication Reconciliation Form jr8 - Thank You Letter jr8 - Antibiotic Education jr8 - Prescription Opioid Use jr8 Prescriptions: - Zofran 4 mg Oral Tablet - take 1 tablet by ORAL route every 12 hours As needed; 20 tablet; Refills: 0, jr8 Product Selection Permitted Addendum: 11/04/2021 21:09 Co-signature as Attending Physician, Yeyo Sebastian MD. r n Signatures: Dispatcher [employer] [facility] Yeyo Sebastian MD MD rn Roszak, Josh, PA PA jr8 Hardy Hoffmann RN RN jl7 Daphnie Chavira RN RN ll1
[2021-10-29 18:00] LABS: ALT/SGPT 49 U/L (12-78); AST/SGOT 23 U/L (15-37); Albumin 3.6 g/dL (3.4-5.0); Alkaline Phosphatase 84 U/L (45-117); BUN Blood Urea Nitrogen 15 mg/dL (7-18); Bicarbonate 29 mmol/L (21-32); Bilirubin Direct < 0.1 mg/dL (0-0.2); Bilirubin Total 0.3 mg/dL (0.2-1.0); Glucose Level 115 mg/dL (74-106); Magnesium 2.4 mg/dL (1.8-2.4); Potassium 3.7 mmol/L (3.5-5.1); Protein, Total 7.3 g/dL (6.4-8.2); Sodium Level 141 mmol/L (136-145)
[2021-10-29 18:58] VITALS: TEMP 98.6
[2021-10-29 19:02] VITALS: BP 137/66; O2SAT 97
== END 2021-10-29 18:29 | disposition home or self-care (01) ==
LOC: ER 15:22
DX: U07.1 COVID-19 (principal); Z86.73 Personal history of transient ischemic attack (TIA), and cerebral infarction without residual deficits; Z85.3 Personal history of malignant neoplasm of breast
CPT/HCPCS: 36415; 70450; 71045; 80048; 80076; 83735; 85025; 93005; 99284; U0003

== ENCOUNTER 2021-12-09 13:35 | Emergency (ER) | payer SELFPAY ==
--- OUTSIDE RECORDS SUMMARY | 2021-12-09 13:37 | XMS REPORT | Continuity of Care Document ---
:1960 Author Organization [facility] t Address [address] [place] [address] Care Team Providers Name Role Phone BYRON SAEZTA Primary Care Physician Unavailable GERARDO PETERSON Attending Clinician Unavailable Gerardo Peterson DO Attending Clinician Goran Subramanian Attending Clinician Unavailable NATALIE WALTER Attending Clinician Unavailable Flori Walter MD Attending Clinician Admitting Clinician Unavailable Moris Admitting Clinician Unavailable Flori WALTER Admitting Clinician Unavailable Payers Payer Name Policy Type Policy Number Effective Date Expiration Date S ource Problems Condition Condition Condition Status Onset Resolution Last Treating Co mments Source Name Details Category Date Date Treatment Clinician Date No known No known Disease Unive rs active active ity of problems problems [facility] Allergies, Adverse Reactions, Alerts Allergy Allergy Status Severity Reaction(s) Onset Inactive Treating Comm ents Source Name Type Date Date Clinician No Known DA Active U [facility] Allergie 11-10 00:00: [address] NO KNOWN Drug Active Univers ALLERGIE Class ity of S [facility] Social History Social Habit Start Date Stop Date Quantity Comments Source Exposure to Not sure [facility] SARS-CoV-2 (event) Medica l Branch Sex Assigned At [birth year] [facility] 00:00:00 00:00:00 Medical Branch Smoking Status Start Date Stop Date Source Unknown if ever smoked General acute hospital Medications Ordered Filled Start Stop Current Ordering Indication Dosage Frequency Signature Comments Components Source Medication Medication Date Date Medication? Clinician (SIG) Name Name iopamidol 2021- Yes [id number] 100mL 100 mL, Univers (ISOVUE 11-30 Intravenou ity o f 370-500 mL) 21:00: 21:00 s, ONCE, 1 [place] injection 00 :00 dose, On Medica l 100 mL [place] [facility] 11/30/21 at 1500, Routine ondansetron 2021- No 4mg 4 mg, Slow Univers (ZOFRAN 11-30 IV Push, ity of (PF)) 20:00: 19:14 ONCE, 1 [place] injection 4 00 :00 dose, On Medi carlos mg [facility] 11/30/21 at 1400, Routine sucralfate Yes [id number] 1g Take 1 U nivers 1 gram - tablet by ity of tablet 00:00: mouth 00 before Medical meals and Branch at bedtime. dicyclomine Yes [id number] 10mg Take 1 Univers (BENTYL) 10 - capsule by it y of mg capsule 00:00: mouth [place] 00 every 8 Medical (eight) Branch hours as needed for Abdominal pain. cephALEXin 2021- Yes [id number] 500mg Take 1 Univers (KEFLEX) 2-12-08 capsule by ity of 500 mg 00:00: 05:59 mouth 3 [place] capsule 00 :00 (three) Medical times Branch daily for 7 days. iopamidol 2020-10- No [id number] 120mL 120 mL, Univers (ISOVUE 0- Intravenou ity o f 370-500 mL) 11:45: 11:45 s, ONCE, 1 [place] injection 00 :00 dose, On Medica l 120 mL Tue Branch 08/12/21 at 0645, Routine ondansetron 2020-10- No 4mg 4 mg, Slow Univers (ZOFRAN 008-12 IV Push, ity of (PF)) 11:00: 10:11 ONCE, 1 [place] injection 4 00 :00 dose, On Medi carlos mg Tue Branch 08/12/21 at 0600, LAURI maalox:diph 2020-10- No 15mL 15 mL, Uni vers enhydrAMINE 08-12 Oral, ity of :lidocaine 11:00: 10:11 ONCE, 1 [place] as 2 % viscous 00 :00 dose, On Medi carlos 1:1:1 Tue Branch (FIRST-MOUT 08/12/21 HWASH BLM) at 0600, oral Routine suspension 15 mL ondansetron 2020-10- No 4mg 4 mg, Slow Univers (ZOFRAN 08-12 IV Push, ity of (PF)) 10:45: 09:34 ONCE, 1 [place] injection 4 00 :00 dose, On Medi carlos mg e Branch 08/12/21 at 0545, LAURI No known 2020-10 No Univers medications ity of 04:47: [address] Vital Signs Vital Name Observation Time Observation Value Comments Source Systolic blood 2021-11-30 20:00:00 142 mm[facility]Hg[facility] Diastolic blood 2021-11-30 20:00:00 64 mm[Hg] [facility] rate 2021-11-30 20:00:00 68 /min [facility] Oxygen saturation in 2021-11-30 20:00:00 98 /min [facility] Arterial blood by [facility] Pulse oximetry Branch Respiratory rate 2021-11-30 19:31:00 16 /min [facility] Body temperature 2021-11-30 18:48:00 36.67 Sarah [facility] Body height 2021-11-30 18:48:00 155 cm [facility] Body weight 2021-11-30 18:48:00 70.308 kg [facility] BMI 2021-11-30 18:48:00 29.26 kg/m2 [facility] Respiratory rate 2021-08-12 11:30:00 18 /min [facility] Systolic blood 2021-08-12 11:00:00 123 mm[facility]Hg[facility] Diastolic blood 2021-08-12 11:00:00 62 mm[Hg] [facility] Heart rate 2021-08-12 11:00:00 59 /min [facility] Oxygen saturation in 2021-08-12 10:00:00 99 /min [facility] blood by [facility] Pulse oximetry Branch Body temperature 2021-08-12 09:19:00 37.28 Sarah [facility] Body height 2021-08-12 09:19:00 160 cm [facility] Body weight 2021-08-12 09:19:00 81.647 kg [facility] BMI 2021-08-12 09:19:00 31.89 kg/m2 [facility] Procedures Procedure Date / Time Performing Clinician Source Performed CT ABDOMEN PELVIS W 2021-11-30 19:46:12 Gerardo Peterson [facility] URINALYSIS 2021-11-30 19:10:00 [facility] LIPASE 2021-11-30 19:04:00 [facility] COMP. METABOLIC PANEL 2021-11-30 19:04:00 Gerardo Peterson [facility] ([id number]) [facility] CBC WITH DIFF 2021-11-30 19:04:00 [facility] NOTICE OF PRIVACY 2021-11-30 18:37:14 Doctor Unassigned, No [facility] PRACTICES Name [facility] ASSIGNMENT OF BENEFITS 2021-11-30 18:36:43 Doctor Unassigned, No [facility] Name [facility] Branch EKG-12 LEAD 2021-08-12 11:38:11 Natalie Walter [facility] CT ABDOMEN PELVIS W 2021-08-12 10:40:23 Natalie Walter [facility] CONTRAST [facility] XR CHEST 1 VW 2021-08-12 09:39:46 Natalie Walter [facility] LIPASE 2021-08-12 09:28:00 Natalie Walter [facility] TROPONIN I 2021-08-12 09:28:00 Natalie Walter [facility] COMP. METABOLIC PANEL 2021-08-12 09:28:00 Natalie Walter [facility] ([id number]) [facility] CBC WITH DIFF 2021-08-12 09:28:00 Natalie Walter [facility] PROTHROMBIN TIME / INR 2021-08-12 09:28:00 Natalie Walter [facility] ACTIVATED PARTIAL 2021-08-12 09:28:00 Natalie Walter [facility] NOTICE OF PRIVACY 2021-08-12 09:06:25 Doctor Unassigned, No Univ [facility] PRACTICES Name [facility] CONSENT/REFUSAL FOR 2021-08-12 09:05:01 [facility], [facility]AT[facility] Name [facility] Encounters Start End Encounter Admission Attending Care Care Encounter Source Date/Time Date/Time Type Type Clinicians Facility Department ID 2021-11-30 2021-11-30 Emergency X [facility] ERT [id number] Univers 12:52:00 14:43:00 GERARDO samaniego [facility] [place] [facility] 2021-11-30 2021-11-30 Emergency [facility] [id number] Univers 12:52:00 14:43:00 Gerardo FLACO 350.1.13.10 i [facility] [id number] [facility] [id number] [facility] 084 Branch 2021-11-13 2021-11-14 Inpatient EL Wiener, [facility] [id number] [facility] 06:40:00 11:58:00 Goran [id number] [facility] 2021-11-13 2021-11-14 Inpatient EL Wiener, [facility] [id number] [facility] 06:40:00 11:58:00 Goran 18 [facility] 2021-08-12 2021-08-12 Emergency X DICK [facility] ERT [id number] Univers 04:15:00 06:52:00 NATALIE [facility] 2021-08-122021-08-12 Emergency [facility] [id number] Univers 04:15:00 06:52:00 [id number] [facility] [id number] [facility] 084 Branch Results Test Description Test Time Test Comments Results Result Comments Source COMP. METABOLIC PANEL (05763) 2021-11-30 19:59:36 Test Item Value Reference Range Interpretation Comme nts NA (test code = 7423478118) 139 mmol/L 135-145 K (test code = 1061648501) 4.0 mmol/L 3.5-5.0 CL (test code = 2410241255) 104 mmol/L 98-108 CO2 TOTAL (test code = 7169282673) 27 mmol/L 23-31 AGAP (test code = 9074843503) 2-16 BUN (test code = 8353048527) 18 mg/dL 7-23 GLUCOSE (test code = 5882098831) 88 mg/dL 70-110 CREATININE (test code = 0.55 mg/dL 0.50-1.04 4993974529) TOTAL BILI (test code = 0.6 mg/dL 0.1-1.2 7076475058) CALCIUM (test code = 6951795151) 9.4 mg/dL 8.6-10.6 T PROTEIN (test code = 9153559530) 7.6 g/dL 6.3-8.2 ALBUMIN (test code = 4447499319) 5.0 g/dL 3.5-5.0 ALK PHOS (test code = 6847064900) 90 U/L 34-122 ALTv (test code = 1742-6) 39 U/L 5-35 H AST(SGOT) (test code = 0661187597) 31 U/L 13-40 eGFR (test code = 0092062073) mL/min/1.73m2 GYPSY (test code = GYPSY) Association of Glomerular Filtration Rate (GFR) and Staging of Kidney Disease* + +-------- + ------+| GFR (mL/min/1.73 m2) ?| With Kidney Damage ?| ?Without Kidney Damage+ +-- + +| ?>90 ?| ?Stage one ?| ? Normal ?+ +------- + -------+| ?60-89 ?| ?Stage two ?| ? Decreased GFR ? + +-------- + ------+| ?30-59 ?| ?Stage three ?| ? Stage three ? + +-------- + ------+| ?15-29 ?| ?Stage four ? | ? Stage four ?+ +------- + -------+| ?<15 (or dialysis) ? ?| ?Stage five ? | ? Stage five ?+ +------- + -------+ *Each stage assumes the associated GFR [...] or abnormalities in imaging tests). Lab Interpretation (test code = Abnormal 76999-6) [facility] 19:59:36 Test Item Value Reference Range Interpretation Comments LIPASE (test code = 7080696222) 240 U/L 0-220 H Lab Interpretation (test code = Abnormal 91861-5) [facility] WITH [id number] 19:45:17 Test Item Value Reference Range Interpretation Comments WBC (test code = See_Comment [Automated message] 6690-2) The system [employer] generated this result transmitted ref erence range: 4.30 - 1 1.10 10*3/?L. The re ference range was not u sed to interpret this result as normal/abnor mal. RBC (test code = See_Comment [Automated message] 789-8) The system [employer] generated this result transmitted ref erence range: 3.93 - 5 .25 10*6/?L. The re ference range was not u sed to interpret this result as normal/abnor mal. HGB (test code = 13.7 g/dL 11.6-15.0 718-7) HCT (test code = 42.3 % 35.7-45.2 4544-3) MCV (test code = 90.2 fL 80.6-95.5 787-2) MCH (test code = 29.2 pg 25.9-32.8 785-6) MCHC (test code = 32.4 g/dL 31.6-35.1 786-4) RDW-SD (test code 41.4 fL 39.0-49.9 = 92517-6) RDW-CV (test code 12.6 % 12.0-15.5 = 788-0) PLT (test code = See_Comment [Automated message] 777-3) The system whic h generated this result transmitted ref erence range: 166 - 35 8 10*3/?L. The re ference range was not u sed to interpret this result as normal/abnor mal. MPV (test code = 12.0 fL 9.5-12.9 84307-1) NRBC/100 WBC (test See_Comment [Automat ed message] code = 3491443353) The syste m which generated this result transmitted ref erence range: 0.0 - 10 .0 /100 WBCs. The refer ence range was not u sed to interpret this result as normal/abnor mal. NRBC x10^3 (test <0.01 See_Comment [Automated message] code = 9749664038) The syste m which generated this result transmitted ref erence range: 10*3/?L. The reference range was not used to interpr et this result as normal/abnormal . GRAN MAT (NEUT) % 61.0 % (test code = 770-8) IMM GRAN % (test 0.40 % code = 4508969122) LYMPH % (test code 25.7 % = 736-9) MONO % (test code 8.7 % = 5905-5) EOS % (test code = 3.4 % 713-8) BASO % (test code 0.8 % = 706-2) GRAN MAT 4.46 10*3/uL 1.88-7.09 x10^3(ANC) (test code = 5552954060) IMM GRAN x10^3 0.03 10*3/uL 0.00-0.06 (test code = 0714607236) LYMPH x10^3 (test 1.88 10*3/uL 1.32-3.29 code = 731-0) MONO x10^3 (test 0.64 10*3/uL 0.33-0.92 code = 742-7) EOS x10^3 (test 0.25 10*3/uL 0.03-0.39 code = 711-2) BASO x10^3 (test 0.06 10*3/uL 0.01-0.07 code = 704-7) [facility] [id number] 13:16:00 Test Item Value Reference Range Interpretation Comments GALL BLADDER (test code = GALBLAD) RUN DATE: 11/18/21 [place] - LAB PAGE 1 RUN TIME: 1316 Specimen Inquiry RUN USER: INTERFACE PATIENT: CARRINGTON VYAS LOC: U U #: [id number] AGE/SX: 61/F ROOM: [facility] RE11/13/21REG DR: Goran Subramanian MD : 60 BED: A DIS: 11/14/21 STATUS: DIS Perla TLOC: SPEC #: [id number] RECD: 11/13/21 STATUS: SALOME SALDIVAR #: [id number] CARTER: 11/13/21 [facility] DR: Goran Subramanian MD ENTERED: 11/13/21 SP TYPE: GALL BLADD OTHR DR: Self Referred Roque Dorsey MDORDERED: SURG PATH LVL 3 CODES: L61254 - GALLBLADDER, NO [id number] [id number] - GALLBLADDER, NO CHRONIC CHOLECY (CHRONIC CHOLECYSTITIS, NOS) COPIES TO: Self Referred Roque Dorsey MD [address] [place], [place] [id number] Goran Subramanian MD [address] [facility] [address] [place], [place] [id number] ICD CODES: 575.1 - PROCEDURES: SURG PATH LVL 3 (11/13/21) TISSUES: A. GALLBLADDER, NOS - GALLBLADDER CPT CODES CPT CODE(S): 31628 , , , , , , FINAL DIAGNOSIS Gallbladder, cholecystectomy: - MILD CHRONIC CHOLECYSTITIS GROSS DESCRIPTION Gallbladder. Received in formalin is a pear-shaped gallbladder, 7.5 x 4.5 x 3.0 cm. The surface is smooth and glistening. The wall has a thickness of 0.2 cm. The mucosal surface has a velvet-like, finely granular appearance. The cavity contains dark stevens-green bile. No calculi are identified. Sections through the gallbladder wall and proximal cystic duct are submitted as A. /tc/rubi CONTINUED ON NEXT PAGE RUN DATE: 11/18/21 [place] - LAB PAGE 2 RUN TIME: 1316 Specimen Inquiry RUN USER: INTERFACE SPEC #: [id number] PATIENT: CARRINGTON VYAS #[id number] (Continued) --- Signed SIGNATURE ON FILE Linn White 11/18/21 1316 END OF REPORT - MELONIE FORREST [id number] 09:46:00 [facility] : 1960 Sex: F Patient Name: CARRINGTON VYAS Unit No: [id number] EXAMS: CPT CODE: [id number] XR UGI SNGL CONTRAST 48760 EXAM: FLUOROSCOPIC UPPER GI INDICATION: Post fundoplication COMPARISON: None available TECHNIQUE: The patient swallowed Gastrografin without difficulty or aspiration. FINDINGS: Postsurgical changes are noted at the and gastroesophageal junction. Contrast progresses smoothly through the surgical site. No contrast extravasation is identified. No hiatal hernia. No gastroesophageal reflux is demonstrated. Normal gastric mucosa and folds. Fluoroscopy time: 21.6 seconds Fluoroscopy dose: 3.37 mGy Number of images: 7 IMPRESSION: Postsurgical changes at the gastroesophageal junction with no obstruction of contrast or contrast extravasation identified. No hiatal hernia. LOCATION: B2 at 0946 Reported and si gned by: Lorene Vincent MD CC: Dr. Roque Dorsey; Goran Subramanian Technologist: Allison Peter, RT (R) Transcrpt Date/Tm/Trnsp: 11/14/2021 (0946) 16 Orig Print D/T: S: 11/14/2021 (0949) [facility] NAME: CARRINGTON VYAS [id number] [place]: [place] [address] : 1960 AGE: 61 SEX: F LOC: ZJonathan Lucero PHONE #: [phone] EXAM DATE: 11/14/2021 STATUS: ADM IN FAX #: [phone] RADIOLOGY NO: PAGE 1 Signed ReportCOVID Asymptomatic IH [id number] 14:11:00 Test Item Value Reference Interpretation Comments Range COVID Negative Negative A negative resu lt does not Asymptomatic IH preclude the SARS-COV-2 NTX (test code = viralinfect ion and should not COVNONPUINTX) be used as the sole basis forpatient lesley gement decisions. Nega tive results must becombined with clinical observations, p atient history, andepidemiologi carlos information. Vi ral levels in clinicalsamples below the detection limit of the assay could lead tone gative results. This test was p erformed using the [employer] Smart TM COVID-19 PCRassay. This test was developed and i ts performancechar acteristics were determined by [facility]. Thi s test has notbeen FDA bairon ared or approved. This test is authorized by t heFDA under Emergency Use Authorization(E UA). The EUA willremain in e ffect unless it is terminated o r revoked by FDA . Testing p arameters have not been valida suki for screeningasympt omatic patients. This test was validated accor ding to the FDA's guidanced ocument "Policy for Diagnostics testing in LaboratoriesCer tified to Perform High Co mplexity Testing under C ALYSA". First test? UnknownEmployed in Healthcare? UnknownSymptomatic as defined by CDC? NoHospitalized due to COVID? UnknownIn ICU due to COVID? UnknownResident in a congregate care setting? Unknown? NoAge at collection: SHANELLEROGESarath Rojas 2021-08-12 10:21:24 Test Item Value Reference Interpretation Comments Range TROPONIN I (test <0.012 See_Comment [Automated code = 8142151485) message] The system which generated this result transmitted reference range : <=0.034 ng/mL. The reference range was not used to interpret this result as normal/abnormal . GYPSY (test code = Reference (Normal) GYPSY) Range (defined by the 99th percentile reference [...] biotin. Lab Interpretation Normal (test code = 26341-9) [facility]. METABOLIC PANEL (94607)2021-08-12 10:09:43 Test Item Value Reference Range Interpretation Comments NA (test code = 140 mmol/L 135-145 4483759128) K (test code = 3.9 mmol/L 3.5-5.0 9650230289) CL (test code = 107 mmol/L 98-108 8125794951) CO2 TOTAL (test code = 23 mmol/L 23-31 3664860420) AGAP (test code = 2-16 3653089385) BUN (test code = 15 mg/dL 7-23 3615984847) GLUCOSE (test code = 102 mg/dL 70-110 1894018834) CREATININE (test code = 0.76 mg/dL 0.50-1.04 0797276397) TOTAL BILI (test code = 0.8 mg/dL 0.1-1.0 9584694924) CALCIUM (test code = 10.1 mg/dL 8.6-10.6 5619275106) T PROTEIN (test code = 7.1 g/dL 6.3-8.2 8785046930) ALBUMIN (test code = 4.5 g/dL 3.5-5.0 6098293560) ALK PHOS (test code = 88 U/L 34-122 5409090583) ALTv (test code = 42 U/L 5-35 H 1742-6) AST(SGOT) (test code = 41 U/L 13-40 H 1248889718) eGFR (test code = mL/min/1.73m2 9793067568) GYPSY (test code = GYPSY) Association of [...] tests). Lab Interpretation Abnormal (test code = 10725-9) [facility], [id number] 10:09:23 Test Item Value Reference Range Interpretation Comments LIPASE (test code = 9551667014) 157 U/L 0-220 Lab Interpretation (test code = Normal 32383-7) [facility]roeaPTT2021-10-26 10:00:22 Test Item Value Reference Range Interpretation Comments APTT Patient (test See_Comment [Automat ed code = 3173-2) message] The system which generated this result transmitted reference range : 23 - 38 Seconds . The reference range was not used to interpr et this result as normal/abnormal . GYPSY (test code = GYPSY) The [facility] patient population mean normal value for aPTT is 30 seconds. Lab Interpretation Normal (test code = 46843-8) [facility]PROTHROMBIN TIME / [id number] 09:58:00 Test Item Value Reference Range Interpretation [...] tions. Lab Interpretation (test Normal code = 92882-6) [facility] WITH [id number] 09:39:58 Test Item Value Reference Range Interpretation Comments WBC (test code = See_Comment [Automated 6690-2) message] The sy stem which generated this result transmitted reference range : 4.30 - 11.10 10*3/?L. The reference range was not used to interpret this result as normal/abnormal . RBC (test code = See_Comment [Automated 789-8) message] The sy stem which generated this [...] (test code = 38.5 fL 39.0-49.9 L 54964-8) RDW-CV (test code = 12.0 % 12.0-15.5 788-0) PLT (test code = See_Comment [Automated 777-3) message] The sy stem which generated this result transmitted reference range : 166 - 358 10*3/ ?L. The reference r liberty was not used to interpret this result as normal/abnormal . MPV (test code = 11.6 fL 9.5-12.9 17777-6) NRBC/100 WBC (test See_Comment [Automat ed code = 8460678356) message] The system which generated this result transmitted reference range : 0.0 - 10.0 /100 WBCs. The refer ence range was not u sed to interpret th is result as normal/abnormal . NRBC x10^3 (test code <0.01 See_Comment [Auto mated = 2088789156) message] The s ystem which generated this result transmitted reference range : 10*3/?L. The reference range was not used to interpret this result as normal/abnormal . GRAN MAT (NEUT) % 62.4 % (test code = 770-8) IMM GRAN % (test code 0.10 % = 2621957625) LYMPH % (test code = 26.1 % 736-9) MONO % (test code = 10.2 % 5905-5) EOS % (test code = 0.9 % 713-8) BASO % (test code = 0.3 % 706-2) GRAN MAT x10^3(ANC) 4.27 10*3/uL 1.88-7.09 (test code = 4670126145) IMM GRAN x10^3 (test <0.03 0.00-0.06 code = 1959298445) LYMPH x10^3 (test code 1.79 10*3/uL 1.32-3.29 = 731-0) MONO x10^3 (test code 0.70 10*3/uL 0.33-0.92 = 742-7) EOS x10^3 (test code = 0.06 10*3/uL 0.03-0.39 711-2) BASO x10^3 (test code <0.03 0.01-0.07 = 704-7) Lab Interpretation Abnormal (test code = 52380-9) [facility] CAD [id number] 11:10:51 - DIAG MAMM BILATERAL CAD DIGITALBILATERAL DIGITAL DIAGNOSTIC MAMMOGRAM WITH CAD: 12/26/2018CLINICAL: Abnormal clinical breast exam. Current mammographic images were evaluated by either a [employer] M-Vu or a [employer] ImageChecker CAD (computer aided detection system). Comparison is made to exams dated 06/17/2015 mammogram - [facility], 05/21/2014 mammogram, 03/06/2014 mammogram - [facility] and 12/22/2012 mammogram - [facility]. The tissue of both breasts [...] to exams dated 06/17/2015 mammogram - [facility], 05/21/2014 mammogram, 03/06/2014 [facility] - [facility] and 12/22/2012 mammogram - [facility]. Real-time ultrasound of both breasts [...] in 1 year.Bhavani Cuevas M.D. dm/:12/27/2018 11:10:51 Security Inspector: Roya Whiting , [facility] sent: BIRADS 1-2Combo FU Letter Mammogram BI-RADS: 0 Indeterminate Ultrasound BI-RADS: 1 NegativeBREAST ULTRASOUND [id number] 11:10:51 - DIAG MAMM BILATERAL CAD DIGITALBILATERAL DIGITAL DIAGNOSTIC MAMMOGRAM WITH CAD: 12/26/2018CLINICAL: Abnormal clinical breast exam. Current mammographic images were evaluated by either a [employer] M-Vu or a [employer] ImageStorage Geneticscker CAD (computer aided detection system). Comparison is made to exams dated 06/17/2015 mammogram - [facility], 05/21/2014 mammogram, 03/06/2014 mammogram - [facility] and 12/22/2012 mammogram - [facility]. The tissue of both breasts [...] to exams dated 06/17/2015 mammogram - [facility], 05/21/2014 mammogram, 03/06/2014 mammogram - [facility] and 12/22/2012 mammogram - [facility]. Real-time ultrasound of both breasts [...] in 1 year.Bhavani Cuevas M.D. dm/:12/27/2018 11:10:51 Security Inspector: Roya RENDON, [facility] sent: BIRADS 1-2Combo FU Letter Mammogram BI-RADS: 0 Indeterminate Ultrasound BI-RADS: 1 Negative
[2021-12-09 15:59] LABS: Urine Blood Trace-intact (Negative); Urine Glucose Negative (Negative); Urine Protein Negative (Negative); Urine Specific Gravity >=1.030 (1.005-1.030)
[2021-12-09] MEDS ORDERED: ONDANSETRON 4 MG/2 ML VIAL ONE (16:17)
[2021-12-09] MEDS ORDERED: MORPHINE 4 MG/ML SYR ONE ×2 (16:17→18:00)
[2021-12-09] MEDS ORDERED: NA CHLORIDE 0.9% 1,000 ML ONE (16:17)
[2021-12-09 16:19] LABS: Urine Bacteria 20-50 /HPF (<20); Urine Mucus 2+ /HPF (NONE SEEN)
[2021-12-09 16:23] LABS: Absolute Lymphocytes (CBC) 1.5 K/uL (0.7-4.9); Hematocrit 40.7 % (36.0-45.0); Lymphocytes % 22.2 % (15.3-44.8); RBC Red Blood Cell Count 4.59 M/uL (3.86-4.86)
[2021-12-09 16:27] LABS: Protime INR 1.15
[2021-12-09 16:43] LABS: ALT/SGPT 36 U/L (12-78); AST/SGOT 16 U/L (15-37); Albumin 4.1 g/dL (3.4-5.0); Alkaline Phosphatase 86 U/L (45-117); BUN Blood Urea Nitrogen 15 mg/dL (7-18); Bicarbonate 28 mmol/L (21-32); Bilirubin Direct 0.1 mg/dL (0-0.2); Bilirubin Total 0.5 mg/dL (0.2-1.0); Glucose Level 97 mg/dL (74-106); Lipase 162 U/L (73-393); Magnesium 2.4 mg/dL (1.8-2.4); NT PRO-BNP 47 pg/mL (<125); Potassium 3.5 mmol/L (3.5-5.1); Protein, Total 7.5 g/dL (6.4-8.2); Sodium Level 140 mmol/L (136-145)
--- NOTE | 2021-12-09 16:45 | RAD REPORT ---
EXAM DESCRIPTION: RAD - Chest Single View - 12/09/2021 4:37 pm CLINICAL HISTORY: abdominal pain COMPARISON: Portable 10/29/2021 TECHNIQUE: AP portable chest image was obtained 12/09/2021 4:37 pm . FINDINGS: Lung volumes are low. No peripheral mass or consolidation. No failure or volume overload. The low lung volumes accentuate the interstitial pattern. True or significant change from comparison is doubtful. Heart and vasculature are normal. No measurable pleural effusion and no pneumothorax. No acute bony abnormality seen. No acute aortic findings suspected. IMPRESSION: No acute cardiopulmonary process.
--- NOTE | 2021-12-09 17:24 | RAD REPORT ---
EXAM DESCRIPTION: CT - Abdomen Pelvis W Contrast - 12/09/2021 5:03 pm CLINICAL HISTORY: ABD PAIN COMPARISON: No comparisons TECHNIQUE: Biphasic, helical CT imaging of the abdomen and pelvis was performed following 100 ml non -ionic IV contrast. No oral contrast administered. All CT scans are performed using dose optimization technique as appropriate and may include automated exposure control or mA/KV adjustment according to patient size. FINDINGS: No suspicious findings in the lung bases. The liver, spleen, and pancreas show no suspicious findings. Gallbladder is absent. Intrahepatic and extrahepatic biliary tree dilatation are present. No obstructing mass seen. Duct stones can be occult . The amount of dilatation is not outside of range of normal the still be the normal reservoir effect that can occur. Correlation is needed with any clinical or laboratory findings of biliary obstructio n. Symmetric renal function is seen with no hydronephrosis or suspicious renal mass. No pyelonephritis o r acute parenchymal process. No bladder abnormalities. No adrenal abnormalities. Uterus is absent. Ov namita are absent, atrophic or obscured by adjacent non-opacified bowel. No dilated bowel loops or bowel wall thickening. Minimal free fluid in the cul sac is present. This is likely reactive. There is no abnormality seen as source for free. No free air, pneumatosis or foca l inflammatory stranding. No hernia, mass or bulky lymphadenopathy. Disc and bone degenerative changes are present primarily lumbar facet degenerative change. No acute b one finding. No acute vascular finding suspected. IMPRESSION: Contrast enhanced CT abdomen and pelvis showing no acute or emergent finding. Status post cholecystectomy with biliary tree dilatation. This may be simply the reservoir effect agusto t can occur after a cholecystectomy. Duct stones can be occult. Correlation is needed with any clinic al or laboratory findings for biliary obstruction. Minimal amount of free fluid in the cul de sac is probably minimal reactive fluid. No significant fin dings seen as a source for the fluid.
[2021-12-09] MEDS ORDERED: LIDOCAINE VISCOUS 2% SOLN 15 ML UDC ONE (18:00)
[2021-12-09] MEDS ORDERED: NA CHLORIDE 0.9% 100 ML IV ONE (18:00)
[2021-12-09] MEDS ORDERED: MAGNES/ALUMIN/SIMET 30ML UCUP ONE (18:00)
[2021-12-09] MEDS ORDERED: CEFTRIAXONE 1000 MG/VIAL ONE (18:00)
--- NOTE | 2021-12-09 18:54 | ER ---
Nurse's Notes [facility] Name: Elvira Thorpe Age: 61 yrs Sex: Female : 1960 Arrival Date: 12/09/2021 Time: 13:36 Bed 16 Private MD: Diagnosis: Abdominal pain, unspecified;UTI/ Urinary tract infection, site not specified Presentation: 12/09 14:34 Chief complaint: Patient states: she feels weak due to lack of appetite post jennifer. She ap3 states she is in pain after she eats. It is reported patient had a jennifer on 11/13/2021, and is having pain in her surgical area as well so much so she is having difficulty sleeping. Coronavirus screen: At this time, the client does not indicate any symptoms associated with coronavirus-19. Ebola Screen: No symptoms or risks identified at this time. No acute neurological deficit is noted. Initial Sepsis Screen: Does the patient meet any 2 criteria? No. Patient's initial sepsis screen is negative. Does the patient have a suspected source of infection? No. Patient's initial sepsis screen is negative. Risk Assessment: Do you want to hurt yourself or someone else? Patient reports no desire to harm self or others. Onset of symptoms was November 13, 2021. 14:34 Method Of Arrival: Ambulatory ap3 14:34 Acuity: ROLAN 3 ap3 Triage Assessment: 14:41 General: Appears uncomfortable, Behavior is calm, cooperative. Pain: Complains of pain ap3 in abdomen Pain currently is 10 out of 10 on a pain scale. Neuro: Level of Consciousness is awake, alert, obeys commands, Oriented to person, place, time, situation, Appropriate for age Gait is steady, Speech is normal, Reports weakness since 11/13/2021. Cardiovascular: Patient's skin is warm and dry. Respiratory: Airway is patent. Derm: Wound noted abdomen Wound is post lap surgical wounds. Wounds are clean and dry. Historical: - Allergies: 14:40 No Known Allergies; ap3 - PMHx: 14:40 breast cancer; 18 years ago; TIA 07/19/21; ap3 - PSHx: 14:40 cancerous lump removal; section; hysterectomy; ap3 - Immunization history:: Client reports receiving the 2nd dose of the Covid vaccine, Flu vaccine is up to date. - Social history:: Smoking status: Patient denies any tobacco usage or history of. Screenin:42 Abuse screen: Denies threats or abuse. Nutritional screening: Has had N/V for 3 or more ap3 days. Tuberculosis screening: No symptoms or risk factors identified. 16:22 Fall Risk None identified. cb5 Assessment: 15:30 General: Appears comfortable, Behavior is calm, cooperative, appropriate for age. Pain: cb5 Complains of pain in abdomen. Neuro: No deficits noted. Level of Consciousness is awake, alert, obeys commands, Oriented to person, place, time, situation, Appropriate for age. Cardiovascular: No deficits noted. Respiratory: No deficits noted. GI: Abdomen is non-distended, Bowel sounds present X 4 quads. Reports lower abdominal pain. : No deficits noted. EENT: No deficits noted. Derm: No deficits noted. Musculoskeletal: No deficits noted. 16:15 Pain: Complains of pain in abdomen Pain currently is 3 out of 10 on a pain scale. cb5 17:32 Pain: Complains of pain in abdomen Pain currently is 2 out of 10 on a pain scale. cb5 19:10 General: Appears comfortable, well groomed, well developed, well nourished, Behavior is tk1 calm, cooperative, appropriate for age. Pain: Denies pain. Cardiovascular: Capillary refill < 3 seconds is brisk in bilateral fingers. Respiratory: Airway is patent Trachea midline Respiratory effort is even, unlabored, Respiratory pattern is regular, symmetrical. GI: Abdomen is non-distended, Bowel sounds present X 4 quads. Reports lower abdominal pain. 19:35 Reassessment: D/C per MD order. Discharge instructions given to Bulgarian speaking tk1 granddaughter to interpret for patient. Verbalized understanding. Vital Signs: 14:34 BP 171 / 93; Pulse 87; Resp 17; Temp 98.2; Pulse Ox 100% ; Weight 69.4 kg; Height 5 ft. ap3 5 in. (165.10 cm); Pain 10/10; 19:35 BP 154 / 86 RA Supine (auto/reg); Pulse 72 MON; Resp 16 S; Temp 98(O); Pulse Ox 100% on tk1 R/A; Pain 0/10; 14:34 Body Mass Index 25.46 (69.40 kg, 165.10 cm) ap3 ED Course: 13:36 Patient arrived in ED. as 14:40 Triage completed. ap3 14:43 Arm band placed on right wrist. ap3 15:31 Jero Hubbard PA is PHCP. cp 15:31 Galindo Del Angel MD is Attending Physician. cp 15:51 Andria Crouch, RN is Primary Nurse. cb5 16:04 Urine Microscopic Only Sent. mh5 16:17 Basic Metabolic Panel Sent. mh5 16:18 CBC with Automated Diff Sent. mh5 16:18 Lipase Sent. mh5 16:18 Urine Microscopic Only Sent. mh5 16:18 Basic Metabolic Panel Sent. mh5 16:18 CBC with Diff Sent. mh5 16:18 XRAY Chest (1 view) Sent. mh5 16:18 LFT's Sent. mh5 16:18 Magnesium Sent. mh5 16:18 NT PRO-BNP Sent. mh5 16:18 PT-INR Sent. mh5 16:18 Troponin HS Sent. mh5 16:18 Initial lab(s) drawn, by co, sent to lab. Urine collected: clean catch specimen, mh5 cloudy. Inserted saline lock: 20 gauge in left antecubital area, using aseptic technique. Blood collected. 16:19 Patient has correct armband on for positive identification. Placed in gown. Bed in low mh5 position. Call light in reach. Side rails up X 1. Adult w/ patient. Warm blanket given. ekg monitor on. Pulse ox on. NIBP on. 16:19 EKG done, by ED staff, reviewed by Galindo Del Angel MD. mh5 16:20 Troponin HS Sent. cb5 16:21 PT-INR Sent. cb5 16:21 NT PRO-BNP Sent. cb5 16:21 Magnesium Sent. cb5 16:21 LFT's Sent. cb5 16:21 Lipase Sent. cb5 16:22 CBC with Automated Diff Sent. cb5 16:37 XRAY Chest (1 view) In Process Unspecified. EDMS 17:03 CT Abd/Pelvis - IV Contrast Only In Process Unspecified. EDMS 17:59 Urine Culture Sent. cb5 18:59 Report given to Lior Herrera cb5 19:35 No provider procedures requiring assistance completed. IV discontinued, intact, tk1 bleeding controlled, No redness/swelling at site. Pressure dressing applied. Administered Medications: 16:21 Drug: Zofran (Ondansetron) 4 mg Route: IVP; Site: left antecubital; cb5 16:21 Drug: morphine 4 mg Route: IVP; Site: left antecubital; cb5 16:21 Drug: NS 0.9% 500 ml Route: IV; Rate: 500 bolus; Site: left antecubital; cb5 16:22 Drug: NS 0.9% 500 ml Route: IV; Rate: 125 ml/hr; Site: left antecubital; cb5 17:58 Drug: morphine 4 mg Route: IVP; Site: left antecubital; cb5 19:56 Follow up: Response: Pain is decreased tk1 17:59 Drug: Rocephin - (cefTRIAXone) 1 grams Route: IVPB; Infused Over: 30 mins; Site: left cb5 antecubital; 19:56 Follow up: Response: No adverse reaction; IV Status: Completed infusion; IV Intake: [id number] 17:59 Drug: GI Cocktail without - (Maalox Suspension 30 ml, Lidocaine Liquid 2 % 15 cb5 ml) Route: PO; 19:56 Follow up: Response: Pain is decreased tk1 Intake: 19:56 IV: 50ml; Total: 50ml. tk1 Outcome: 18:54 Discharge ordered by MD. cp 19:35 Discharged to home ambulatory, with family. tk1 19:35 Condition: stable 19:35 Discharge instructions given to patient, family, Instructed on discharge instructions, follow up and referral plans. medication usage, Demonstrated understanding of instructions, follow-up care, medications, Prescriptions given X 3. 19:55 Patient left the ED. tk1 Signatures: Dispatcher [employer] EDMS Stephenie Johnson Corey, PA PA cp Martinez, Maria 5 Margarita Mitchell RN RN [id number] Sharon Chan tk1 Andria Crouch, RN RN cb5 Corrections: (The following items were deleted from the chart) 19:54 19:35 Reassessment: D/C per MD order. Discharge instructions given to patient. tk1 Verbalized understanding. tk1
--- NOTE | 2021-12-09 18:55 | EDPHYS ---
Physician Documentation [facility] Name: Elvira Thorpe Age: 61 yrs Sex: Female : 1960 Arrival Date: 12/09/2021 Time: 13:36 Bed 16 Private MD: ED Physician Galindo Del Angel HPI: 12/09 15:50 This 61 yrs old Female presents to ER via Ambulatory with complaints of cp Weakness. 15:50 The patient presents to the emergency department with weakness of the entire body, cp generalized weakness. 15:50 Patient's baseline: Neuro: alert and fully oriented, Motor: no deficits, Ambulation: cp walks without assistance, Speech: normal. 15:50 The patient presents with abdominal pain that is diffuse. cp 15:50 Patient reports having cholecystectomy performed 11-08-[address] Goran Subramanian and cp since surgery patient reports abdominal pain, decreased appetite, general weakness. Historical: - Allergies: 14:40 No Known Allergies; ap3 - PMHx: 14:40 breast cancer; 18 years ago; TIA 07/19/21; ap3 - PSHx: 14:40 cancerous lump removal; section; hysterectomy; ap3 - Immunization history:: Client reports receiving the 2nd dose of the Covid vaccine, Flu vaccine is up to date. - Social history:: Smoking status: Patient denies any tobacco usage or history of. ROS: 15:55 Constitutional: Negative for body aches, chills, fever. cp 15:55 Eyes: Negative for injury, pain, redness, and discharge. cp 15:55 Cardiovascular: Negative for chest pain. 15:55 Respiratory: Negative for cough, shortness of breath, wheezing. 15:55 Abdomen/GI: Positive for abdominal pain, nausea and vomiting, Negative for constipation, hematemesis, rectal bleeding. 15:55 : Negative for urinary symptoms. 15:55 Neuro: Positive for weakness, Negative for altered mental status, headache. 15:55 All other systems are negative. Exam: 16:02 Constitutional: The patient appears in no acute distress, alert, awake, cp non-diaphoretic, non-toxic, well developed, well nourished, uncomfortable. 16:02 Head/Face: Normocephalic, atraumatic. cp 16:02 Eyes: Periorbital structures: appear normal, Conjunctiva: normal, no exudate, no injection, Sclera: no appreciated abnormality, Lids and lashes: appear normal, bilaterally. 16:02 ENT: External ear(s): are unremarkable, Nose: is normal, Mouth: Lips: moist, Oral mucosa: pink and intact, moist, Posterior pharynx: Airway: no evidence of obstruction, patent. 16:02 Chest/axilla: Inspection: normal, Palpation: is normal, no crepitus, no tenderness. 16:02 Cardiovascular: Rate: normal, Rhythm: regular, Edema: is not appreciated, JVD: is not appreciated. 16:02 Respiratory: the patient does not display signs of respiratory distress, Respirations: normal, no use of accessory muscles, no retractions, labored breathing, is not present, Breath sounds: are clear throughout, no decreased breath sounds, no stridor, no wheezing. 16:02 Abdomen/GI: Inspection: scar(s), are noted in the umbilical area, right upper quadrant, right lower quadrant and left lower quadrant, Bowel sounds: active, all quadrants, Palpation: soft, in all quadrants, moderate abdominal tenderness, in all quadrants, rebound tenderness, is not appreciated, voluntary guarding, is elicited in all quadrants. 16:02 Back: CVA tenderness, is absent. 16:02 Skin: cellulitis, is not appreciated, no rash present. 16:02 Neuro: Orientation: to person, place \T\ time. Mentation: is normal, Cerebellar function: is grossly normal, Motor: moves all fours, strength is normal, Sensation: is normal. 16:12 ECG was reviewed by the Attending Physician. cp Vital Signs: 14:34 BP 171 / 93; Pulse 87; Resp 17; Temp 98.2; Pulse Ox 100% ; Weight 69.4 kg; Height 5 ft. ap3 5 in. (165.10 cm); Pain 10/10; 19:35 BP 154 / 86 RA Supine (auto/reg); Pulse 72 MON; Resp 16 S; Temp 98(O); Pulse Ox 100% on tk1 R/A; Pain 0/10; 14:34 Body Mass Index 25.46 (69.40 kg, 165.10 cm) ap3 MDM: 15:35 Patient medically screened. cp 16:00 Differential diagnosis: appendicitis, bowel obstruction, gastritis, pancreatitis, cp Peptic Ulcer Disease, Perf. Duodenal Ulcer, Perf. Gastric Ulcer, Pyelonephritis, Ureterolithiasis, urinary tract infection, choledocholithiasis. 18:53 Data reviewed: vital signs, nurses notes, lab test result(s), EKG, radiologic studies, cp CT scan, plain films. 18:53 Test interpretation: by ED physician or midlevel provider: ECG, plain radiologic cp studies. Counseling: I had a detailed discussion with the patient and/or guardian regarding: the historical points, exam findings, and any diagnostic results supporting the discharge/admit diagnosis, lab results, radiology results, the need for outpatient follow up, a general surgeon, a chair finisher, to return to the emergency department if symptoms worsen or persist or if there are any questions or concerns that arise at home. Response to treatment: the patient's symptoms have markedly improved after treatment, VSS. Pain markedly improved. Will discharge to home for continued monitoring. Special discussion: Based on the patient's Hx, exam, and Dx evaluation, there is no indication for emergent surgery or inpatient Tx. It is understood by the patient/guardian that if the Sx's persist or worsen they need to return immediately for re-evaluation. 12/09 15:43 Order name: Basic Metabolic Panel cp 12/09 15:43 Order name: CBC with Diff 12/09 15:43 Order name: LFT's; Complete Time: 16:51 cp 12/09 17:38 Interpretation: Reviewed. 12/09 15:43 Order name: Magnesium; Complete Time: 16:51 cp 12/09 15:43 Order name: NT PRO-BNP; Complete Time: 16:51 cp 12/09 15:43 Order name: PT-INR; Complete Time: 16:51 cp 12/09 16:51 Interpretation: Reviewed. 12/09 15:43 Order name: Troponin HS; Complete Time: 16:51 cp 12/09 15:43 Order name: XRAY Chest (1 view); Complete Time: 16:51 cp 12/09 16:52 Interpretation: Report reviewed. cp 12/09 15:43 Order name: Urine Microscopic Only; Complete Time: 16:51 cp 12/09 16:52 Interpretation: Normal except: UWBC 5-10; URBC 5-10; UBACT 20-50; SQEPI 5-10. cp 12/09 15:43 Order name: Lipase; Complete Time: 16:51 cp 12/09 17:39 Interpretation: Reviewed. cp 12/09 15:44 Order name: Basic Metabolic Panel; Complete Time: 16:51 EDMS 12/09 16:52 Interpretation: Normal except: CL 108. cp 12/09 15:44 Order name: CBC with Automated Diff; Complete Time: 16:51 EDMS 12/09 15:59 Order name: Urine Dipstick-Ancillary; Complete Time: 16:51 EDMS 12/09 16:52 Interpretation: Normal except: UKET 1+; UBLD Trace-intact; UESTR Trace. cp 12/09 16:20 Order name: Urine Culture EDMS 12/09 15:43 Order name: EKG; Complete Time: 15:44 cp 12/09 15:43 Order name: Cardiac monitoring; Complete Time: 15:52 cp 12/09 15:43 Order name: EKG - Nurse/Tech; Complete Time: 15:48 cp 12/09 15:43 Order name: IV Saline Lock; Complete Time: 16:18 cp 12/09 15:43 Order name: Labs collected and sent; Complete Time: 16:18 cp 12/09 15:43 Order name: O2 Per Protocol; Complete Time: 15:52 cp 12/09 15:43 Order name: O2 Sat Monitoring; Complete Time: 15:52 cp 12/09 15:43 Order name: Urine Dipstick-Ancillary (obtain specimen); Complete Time: 16:04 cp 12/09 15:44 Order name: CT Abd/Pelvis - IV Contrast Only; Complete Time: 17:36 cp EC:12 Rate is 62 beats/min. Rhythm is regular. TN interval is normal. QRS interval is normal. cp QT interval is normal. T waves are Inverted in lead aVR. Interpreted by me. Reviewed by me. Administered Medications: 16:21 Drug: Zofran (Ondansetron) 4 mg Route: IVP; Site: left antecubital; cb5 16:21 Drug: morphine 4 mg Route: IVP; Site: left antecubital; cb5 16:21 Drug: NS 0.9% 500 ml Route: IV; Rate: 500 bolus; Site: left antecubital; cb5 16:22 Drug: NS 0.9% 500 ml Route: IV; Rate: 125 ml/hr; Site: left antecubital; cb5 17:58 Drug: morphine 4 mg Route: IVP; Site: left antecubital; cb5 19:56 Follow up: Response: Pain is decreased tk1 17:59 Drug: Rocephin - (cefTRIAXone) 1 grams Route: IVPB; Infused Over: 30 mins; Site: left cb5 antecubital; 19:56 Follow up: Response: No adverse reaction; IV Status: Completed infusion; IV Intake: [id number] 17:59 Drug: GI Cocktail without - (Maalox Suspension 30 ml, Lidocaine Liquid 2 % 15 cb5 ml) Route: PO; 19:56 Follow up: Response: Pain is decreased tk1 Disposition Summary: 12/09/21 18:54 Discharge Ordered Location: Home cp Problem: new cp Symptoms: have improved cp Condition: Stable cp Diagnosis - Abdominal pain, unspecified cp - UTI/ Urinary tract infection, site not specified cp Followup: cp - With: Private Physician - When: 2 - 3 days - Reason: Recheck today's complaints Discharge Instructions: - Discharge Summary Sheet cp - Abdominal Pain, Adult cp - Urinary Tract Infection, Adult cp Forms: - Medication Reconciliation Form cp - Thank You Letter cp - Antibiotic Education cp - Prescription Opioid Use cp Prescriptions: - Zofran 4 mg Oral Tablet - take 1 tablet by ORAL route every 12 hours As needed; 20 tablet; Refills: 0, cp Product Selection Permitted - Augmentin 875-125 mg Oral Tablet - take 1 tablet by ORAL route every 12 hours for 7 days; 14 tablet; Refills: 0, cp Product Selection Permitted - dicyclomine 20 mg Oral Tablet - take 1 tablet by ORAL route 4 times per day; 30 tablet; Refills: 0, Product cp Selection Permitted Signatures: Dispatcher [employer] EDJero Ramírez PA PA cp Margarita Mitchell RN RN ap3 Andria Crouch RN RN cb5 Sharon Chan tk1
[2021-12-09 21:43] VITALS: O2SAT 100
[2021-12-09 21:44] VITALS: BP 154/86; TEMP 98
== END 2021-12-09 19:55 | disposition home or self-care (01) ==
LOC: ER 13:35
DX: N39.0 Urinary tract infection, site not specified (principal); Z85.3 Personal history of malignant neoplasm of breast
CPT/HCPCS: 36415; 71045; 74177; 80048; 80076; 81003; 81015; 83690; 83735; 83880; 84484; 85025; 85610; 87086; 87088; 96365; 96366; 96375; 99284; J2405; J7030; Q9967

== ENCOUNTER 2021-12-28 14:10 | Emergency (ER) | payer SELFPAY ==
--- OUTSIDE RECORDS SUMMARY | 2021-12-28 14:14 | XMS REPORT | Continuity of Care Document ---
:1960 Author Organization [facility] t Address [address] [place] [address] Care Team Providers Name Role Phone BYRON SAEZTA Primary Care Physician Unavailable GERADRO PETERSON Attending Clinician Unavailable Gerardo Peterson DO [...] rs active active ity of problems problems [facility] Allergies, Adverse Reactions, Alerts Allergy Allergy Status Severity Reaction(s) Onset Inactive Treating Comm ents Source Name Type Date Date Clinician No Known DA Active U [facility] Allergie 11-10 00:00: [address] NO KNOWN Drug Active Univers ALLERGIE Class ity of S [facility] Social History Social Habit Start Date Stop Date Quantity Comments Source Exposure to Not sure [facility] SARS-CoV-2 (event) Medica l Branch Sex Assigned At [birth year] [facility] 00:00:00 00:00:00 Medical Branch Smoking Status Start Date Stop Date Source Unknown if ever smoked [facility] Medications Ordered Filled Start Stop Current Ordering Indication Dosage Frequency Signature Comments Components Source Medication Medication Date Date Medication? Clinician (SIG) Name Name iopamidol 2021- Yes [id number] 100mL 100 mL, Univers (ISOVUE 11-30 Intravenou ity o f 370-500 mL) 21:00: 21:00 s, ONCE, 1 [place] injection 00 :00 dose, On Medica l 100 mL [place] [facility] 11/30/21 at 1500, Routine ondansetron 2021- No 4mg 4 mg, Slow Univers (ZOFRAN 11-30 IV Push, ity of (PF)) 20:00: 19:14 ONCE, 1 [place] injection 4 00 :00 dose, On Medi carlos mg [facility] 11/30/21 at 1400, Routine sucralfate Yes [id number] 1g Take 1 U nivers 1 gram - tablet by ity of tablet 00:00: mouth 00 before Medical meals and Branch at bedtime. dicyclomine Yes [id number] 10mg Take 1 Univers (BENTYL) 10 - capsule by it y of mg capsule 00:00: mouth [place] 00 every 8 Medical (eight) Branch hours as needed for Abdominal pain. cephALEXin 2021- Yes [id number] 500mg Take 1 Univers (KEFLEX) 2-12-08 capsule by ity of 500 mg 00:00: 05:59 mouth 3 [place] capsule 00 :00 (three) Medical times Branch daily for 7 days. iopamidol 2020-10- No [id number] 120mL 120 mL, Univers (ISOVUE 0- Intravenou [...] 2020-10 No Univers medications ity of 04:47: [address] Vital Signs Vital Name Observation Time Observation Value Comments Source Systolic blood 2021-11-30 20:00:00 142 mm[Hg] [facility] sity pressure [facility] Diastolic blood 2021-11-30 20:00:00 64 mm[Hg] [facility] rate 2021-11-30 20:00:00 68 /min [facility] Oxygen saturation in 2021-11-30 20:00:00 98 /min [facility] Arterial blood by [facility] Pulse oximetry Branch Respiratory rate 2021-11-30 19:31:00 16 /min [facility] Body temperature 2021-11-30 18:48:00 36.67 Sarah [facility] Body height 2021-11-30 18:48:00 155 cm [facility] Body weight 2021-11-30 18:48:00 70.308 kg [facility] BMI 2021-11-30 18:48:00 29.26 kg/m2 [facility] Respiratory rate 2021-08-12 11:30:00 18 /min [facility] Systolic blood 2021-08-12 11:00:00 123 mm[Hg] [facility] sity of pressure [facility] Diastolic blood 2021-08-12 11:00:00 62 mm[Hg] [facility] Heart rate 2021-08-12 11:00:00 59 /min [facility] Oxygen saturation in 2021-08-12 10:00:00 99 /min [facility] blood by [facility] Pulse oximetry Branch Body temperature 2021-08-12 09:19:00 37.28 Sarah [facility] Body height 2021-08-12 09:19:00 160 cm [facility] Body weight 2021-08-12 09:19:00 81.647 kg [facility] BMI 2021-08-12 09:19:00 31.89 kg/m2 [facility] Procedures Procedure Date / Time Performing Clinician Source Performed CT ABDOMEN PELVIS W 2021-11-30 19:46:12 Gerardo Peterson [facility] URINALYSIS 2021-11-30 19:10:00 Singer [facility] LIPASE 2021-11-30 19:04:00 [facility] COMP. METABOLIC PANEL 2021-11-30 19:04:00 Gerardo Peterson [facility] ([id number]) [facility] CBC WITH DIFF 2021-11-30 19:04:00 [facility] NOTICE OF PRIVACY 2021-11-30 18:37:14 Doctor Unassigned, No [facility] PRACTICES Name [facility] ASSIGNMENT OF BENEFITS 2021-11-30 18:36:43 Doctor Unassigned, No [facility] Name [facility] Branch EKG-12 LEAD 2021-08-12 11:38:11 Natalie Walter [facility] CT ABDOMEN PELVIS W 2021-08-12 10:40:23 Natalie Walter [facility] CONTRAST [facility] XR CHEST 1 VW 2021-08-12 09:39:46 Natalie Walter [facility] LIPASE 2021-08-12 09:28:00 Natalie Walter [facility] TROPONIN I 2021-08-12 09:28:00 Natalie Walter [facility] COMP. METABOLIC PANEL 2021-08-12 09:28:00 Natalie Walter [facility] ([id number]) [facility] CBC WITH DIFF 2021-08-12 09:28:00 Natalie Walter [facility] PROTHROMBIN TIME / INR 2021-08-12 09:28:00 Natalie Walter [facility] ACTIVATED PARTIAL 2021-08-12 09:28:00 Natalie Walter [facility] NOTICE OF PRIVACY 2021-08-12 09:06:25 Doctor Unassigned, No Univ [facility] PRACTICES Name [facility] CONSENT/REFUSAL FOR 2021-08-12 09:05:01 Doctor [facility]assigned, [facility]AT[facility] Name [facility] Encounters Start End Encounter Admission Attending Care Care Encounter Source Date/Time Date/Time Type Type Clinicians Facility Department ID 2021-11-30 2021-11-30 Emergency X [facility] ERT [id number] Univers 12:52:00 14:43:00 GERARDO samaniego [facility] 2021-11-30 2021-11-30 Emergency [facility] [id number] Univers 12:52:00 14:43:00 Gerardo FLACO [id number] i [facility] [id number] [facility] [id number] [facility] 084 Branch 2021-11-13 2021-11-14 Inpatient EL Wiener, [facility] [id number] [facility] 06:40:00 11:58:00 Goran [id number] [facility] 2021-11-13 2021-11-14 Inpatient EL Wiener, [facility] [id number] [facility] 06:40:00 11:58:00 Goran 18 [facility] 2021-08-12 2021-08-12 Emergency X DICK [facility] ERT [id number] Univers 04:15:00 06:52:[address] [facility] 2021-08-122021-08-12 [facility] [id number] Univers 04:15:00 06:52:00 Natalie [place] [id number] [facility] [id number] [facility] 084 Branch Results Test Description Test Time Test Comments Results Result Comments Source COMP. METABOLIC PANEL (98798) 2021-11-30 19:59:36 Test Item Value Reference Range Interpretation Comme nts NA (test code = 5096765833) 139 mmol/L 135-145 K (test code = 0566862097) 4.0 mmol/L 3.5-5.0 CL (test code = 3920395767) 104 mmol/L 98-108 CO2 TOTAL (test code = 0129318312) 27 mmol/L 23-31 AGAP (test code = 8642252112) 2-16 BUN (test code = 2720285223) 18 mg/dL 7-23 GLUCOSE (test code = 3621691808) 88 mg/dL 70-110 CREATININE (test code = 0.55 mg/dL 0.50-1.04 5313614406) TOTAL BILI (test code = 0.6 mg/dL 0.1-1.7 4177940295) CALCIUM (test code = 0927999995) 9.4 mg/dL 8.6-10.6 T PROTEIN (test code = 6816814371) 7.6 g/dL 6.3-8.2 ALBUMIN (test code = 0257087663) 5.0 g/dL 3.5-5.0 ALK PHOS (test code = 4475555512) 90 U/L 34-122 ALTv (test code = 1742-6) 39 U/L 5-35 H AST(SGOT) (test code = 3586468917) 31 U/L 13-40 eGFR (test code = 3870992766) mL/min/1.73m2 GYPSY (test code = GYPSY) Association [...] tests). Lab Interpretation (test code = Abnormal 06254-2) [facility] 19[facility]59:36 Test Item Value Reference Range Interpretation Comments LIPASE (test code = 4523656629) 240 U/L 0-220 H Lab Interpretation (test code = Abnormal 50590-1) [facility] [id number] 19:45:17 Test Item Value Reference Range Interpretation Comments WBC (test code = See_Comment [Automated message] 6690-2) The system [employer] generated this result transmitted ref erence range: 4.30 - 1 1.10 10*3/?L. The re ference range was not u sed to interpret this result as normal/abnor mal. RBC (test code = See_Comment [Automated message] 789-8) The system [employer] generated this result transmitted ref erence range: [...] RDW-SD (test code 41.4 fL 39.0-49.9 = 47427-2) RDW-CV (test code 12.6 % 12.0-15.5 = 788-0) PLT (test code = See_Comment [Automated message] 777-3) The system whic h generated this result transmitted ref erence range: 166 - 35 8 10*3/?L. The re ference range was not u sed to interpret this result as normal/abnor mal. MPV (test code = 12.0 fL 9.5-12.9 61788-0) NRBC/100 WBC (test See_Comment [Automat ed message] code = 6746629787) The syste m which generated this result transmitted ref erence range: 0.0 - 10 .0 /100 WBCs. The refer ence range was not u sed to interpret this result as normal/abnor mal. NRBC x10^3 (test <0.01 See_Comment [Automated message] code = 2155464505) The syste m which generated this result transmitted ref erence range: 10*3/?L. The reference range was not used to interpr et this result as normal/abnormal . GRAN MAT (NEUT) % 61.0 % (test code = 770-8) IMM GRAN % (test 0.40 % code = 0907447520) LYMPH % (test code 25.7 % = 736-9) MONO % (test code 8.7 % = 5905-5) EOS % (test code = 3.4 % 713-8) BASO % (test code 0.8 % = 706-2) GRAN MAT 4.46 10*3/uL 1.88-7.09 x10^3(ANC) (test code = 7553905557) IMM GRAN x10^3 0.03 10*3/uL 0.00-0.06 (test code = 5785560842) LYMPH x10^3 (test 1.88 10*3/uL 1.32-3.29 code = 731-0) MONO x10^3 (test 0.64 10*3/uL 0.33-0.92 code = 742-7) EOS x10^3 (test 0.25 10*3/uL 0.03-0.39 code = 711-2) BASO x10^3 (test 0.06 10*3/uL 0.01-0.07 code = 704-7) [id number] 13:16:00 Test Item Value Reference Range Interpretation Comments GALL BLADDER (test code = GALBLAD) RUN DATE: 11/18/21 [place] - LAB PAGE 1 RUN TIME: 1316 Specimen Inquiry RUN USER: INTERFACE PATIENT: CARRINGTON VYAS LOC: U U #: [id number] AGE/SX: 61/F ROOM: [facility] RE11/13/21REG DR: Goran Subramanian MD : 60 BED: A DIS: 11/14/21 STATUS: DIS Perla TLOC: SPEC #: [id number]:[id number] RECD: 11/13/21 STATUS: SALOME SALDIVAR #: [id number] CARTER: 11/13/[address] [facility] [address]: Goran Subramanian MD ENTERED: 11/13/21 SP TYPE: GALL BLADD OTHR DR: Self Referred Roque Dorsey MDORDERED: SURG PATH LVL 3 CODES: W47137 - GALLBLADDER, NO E76704 [id number] Z88621 - GALLBLADDER, NO CHRONIC CHOLECY (CHRONIC CHOLECYSTITIS, NOS) COPIES TO: Self Referred Roque Dorsey MD [address] [facility] [address] [place], [place] [id number] Goran Subramanian MD [address] [facility] [address] [place], [place] [address] ICD CODES: 575.1 - PROCEDURES: SURG PATH LVL 3 (11/13/21) TISSUES: A. GALLBLADDER, NOS - GALLBLADDER CPT CODES CPT CODE(S): 72118 , , , , , , FINAL [...] INTERFACE SPEC #: [id number] PATIENT: CARRINGTON VYAS #[id number] (Continued) --- Signed SIGNATURE ON FILE Linn White 11/18/21 1316 END OF REPORT - MELONIE FORREST [id number] 09:46:00 [facility] 1960 Sex: F Patient Name: CARRINGTON VYAS Unit No: [id number] EXAMS: CPT CODE: [id number] XR UGI SNGL CONTRAST 14579 EXAM: FLUOROSCOPIC UPPER GI INDICATION: Post fundoplication [...] 16 Orig Print D/T: S: 11/14/2021 (0949) [facility] NAME: CARRINGTON VYAS [address] [address]: [place] [address] : 1960 AGE: 61 SEX: F LOC: ZJonathan Lucero PHONE #: [phone] EXAM DATE: 11/14/2021 STATUS: ADM IN FAX #: [phone] RADIOLOGY NO: PAGE 1 Signed ReportCOVID Asymptomatic IH [id number] 14:11:00 Test Item Value Reference Interpretation Comments [...] i ts performancechar acteristics were determined by [facility]. Thi s test has notbeen FDA [...] I (test <0.012 See_Comment [Automated code = 1575239954) message] The system which generated this result [...] biotin. Lab Interpretation Normal (test code = 50189-7) [facility]. METABOLIC PANEL (44756)2021-08-12 10:09:43 Test Item Value Reference Range Interpretation Comments NA (test code = 140 mmol/L 135-145 9568246994) K (test code = 3.9 mmol/L 3.5-5.0 8719244758) CL (test code = 107 mmol/L 98-108 2103760902) CO2 TOTAL (test code = 23 mmol/L 23-31 5370747486) AGAP (test code = 2-16 8867461652) BUN (test code = 15 mg/dL 7-23 6051810051) GLUCOSE (test code = 102 mg/dL 70-110 7918668030) CREATININE (test code = 0.76 mg/dL 0.50-1.04 4251119075) TOTAL BILI (test code = 0.8 mg/dL 0.1-1.2 4919918269) CALCIUM (test code = 10.1 mg/dL 8.6-10.6 0522131002) T PROTEIN (test code = 7.1 g/dL 6.3-8.2 0954076291) ALBUMIN (test code = 4.5 g/dL 3.5-5.0 2445003651) ALK PHOS (test code = 88 U/L 34-122 1967287652) ALTv (test code = 42 U/L 5-35 H 1742-6) AST(SGOT) (test code = 41 U/L 13-40 H 7558740315) eGFR (test code = mL/min/1.73m2 3853799019) GYPSY (test code = GYPSY) Association of [...] tests). Lab Interpretation Abnormal (test code = 02528-5) [facility] [id number] 10:09:23 Test Item Value Reference Range Interpretation Comments LIPASE (test code = 2697774535) 157 U/L 0-220 Lab Interpretation (test code = Normal 31414-5) [facility]2021-10-26 10:00:22 Test Item Value Reference Range Interpretation Comments APTT Patient (test See_Comment [Automat ed code = 3173-2) message] The system which generated this result transmitted reference range : 23 - 38 Seconds . The reference range was not used to interpr et this result as normal/abnormal . GYPSY (test code = GYPSY) The [facility] patient population mean normal value for aPTT is 30 seconds. Lab Interpretation Normal (test code = 85878-7) [facility] / [id number] 09:58:00 Test Item Value Reference Range Interpretation [...] tions. Lab Interpretation (test Normal code = 80927-1) [facility] WITH [id number] 09:39:58 Test Item Value Reference Range Interpretation [...] (test code = 38.5 fL 39.0-49.9 L 04911-9) RDW-CV (test code = 12.0 % 12.0-15.5 788-0) PLT (test code = See_Comment [Automated 777-3) message] The sy stem which generated this result transmitted reference range : 166 - 358 10*3/ ?L. The reference r liberty was not used to interpret this result as normal/abnormal . MPV (test code = 11.6 fL 9.5-12.9 73961-7) NRBC/100 WBC (test See_Comment [Automat ed code = 8631403382) message] The system which generated this result transmitted reference range : 0.0 - 10.0 /100 WBCs. The refer ence range was not u sed to interpret th is result as normal/abnormal . NRBC x10^3 (test code <0.01 See_Comment [Auto mated = 1427341569) message] The s ystem which generated this result transmitted reference range : 10*3/?L. The reference range was not used to interpret this result as normal/abnormal . GRAN MAT (NEUT) % 62.4 % (test code = 770-8) IMM GRAN % (test code 0.10 % = 1131908030) LYMPH % (test code = 26.1 % 736-9) MONO % (test code = 10.2 % 5905-5) EOS % (test code = 0.9 % 713-8) BASO % (test code = 0.3 % 706-2) GRAN MAT x10^3(ANC) 4.27 10*3/uL 1.88-7.09 (test code = 8130038934) IMM GRAN x10^3 (test <0.03 0.00-0.06 code = 2505672652) LYMPH x10^3 (test code 1.79 10*3/uL 1.32-3.29 = 731-0) MONO x10^3 (test code 0.70 10*3/uL 0.33-0.92 = 742-7) EOS x10^3 (test code = 0.06 10*3/uL 0.03-0.39 711-2) BASO x10^3 (test code <0.03 0.01-0.07 = 704-7) Lab Interpretation Abnormal (test code = 33464-9) [facility] [id number] 11:10:51 - DIAG MAMM BILATERAL CAD DIGITALBILATERAL DIGITAL DIAGNOSTIC MAMMOGRAM WITH CAD: 12/26/2018CLINICAL: Abnormal clinical breast exam. Current mammographic images were evaluated by either a [employer] M-Vu or a [employer] ImageChecker CAD (computer aided detection system). Comparison is made to exams dated 06/17/2015 mammogram - [facility], 05/21/2014 mammogram, 03/06/2014 mammogram - [facility] and 12/22/2012 mammogram - [facility]. The tissue of both breasts [...] to exams dated 06/17/2015 mammogram - [facility], 05/21/2014 mammogram, 03/06/2014 mammogram - [facility] and 12/22/2012 mammogram - [facility]. Real-time ultrasound of both breasts [...] in 1 year.Bhavani Cuevas M.D. dm/:12/27/2018 11:10:51 Psychiatry Physician: Roya Whiting , [facility] sent: BIRADS 1-2Combo FU Letter Mammogram BI-RADS: 0 Indeterminate Ultrasound BI-RADS: 1 NegativeBREAST ULTRASOUND [id number] 11:10:51 - DIAG MAMM BILATERAL CAD DIGITALBILATERAL DIGITAL DIAGNOSTIC MAMMOGRAM WITH CAD: 12/26/2018CLINICAL: Abnormal clinical breast exam. Current mammographic images were evaluated by either a [employer] M-Vu or a [employer] ImageSKURAcker CAD (computer aided detection system). Comparison is made to exams dated 06/17/2015 mammogram - [facility], 05/21/2014 mammogram, 03/06/2014 mammogram - [facility] and 12/22/2012 mammogram - [facility]. The tissue of both breasts [...] to exams dated 06/17/2015 mammogram - [facility], 05/21/2014 mammogram, 03/06/2014 mammogram - [facility] and 12/22/2012 mammogram - [facility]. Real-time ultrasound of both breasts [...] in 1 year.Bhavani Cuevas M.D. dm/:12/27/2018 11:10:51 Psychiatry Physician: Roya RENDON, [facility] sent: BIRADS 1-2Combo FU Letter Mammogram BI-RADS: 0 Indeterminate Ultrasound BI-RADS: 1 Negative
[2021-12-28 15:18] LABS: Absolute Lymphocytes (CBC) 1.6 K/uL (0.7-4.9); Hematocrit 37.6 % (36.0-45.0); MPV 10.4 fL (7.6-11.3); RBC Red Blood Cell Count 4.22 M/uL (3.86-4.86)
[2021-12-28] MEDS ORDERED: NA CHLORIDE 0.9% 1,000 ML ONE ×3 (15:19→19:58)
[2021-12-28] MEDS ORDERED: METRONIDAZOLE 500mg IVPB 500 MG/100 ML BAG IV ONE (15:19)
[2021-12-28] MEDS ORDERED: NA CHLORIDE 0.9% 500 ML ONE (15:19)
[2021-12-28] MEDS ORDERED: CIPROFLOXACIN 400mg IV 400 MG/200 ML BAG IV ONE (15:20)
--- NOTE | 2021-12-28 16:03 | RAD REPORT ---
EXAM DESCRIPTION: RAD - Chest Single View - 12/28/2021 3:53 pm CLINICAL HISTORY: ABDOMINAL DISTENTION COMPARISON: Chest Single View dated 12/09/2021; Chest Single View dated 10/29/2021; Chest Single View dated 08/09/2021; Chest Single View dated 07/17/2021 FINDINGS: Lines: None. Lungs: No evidence of edema or pneumonia. Pleural: No significant pleural effusions or pneumothorax. Cardiac: The heart size is within normal limits. Bones: No acute fractures. Other: Surgical clips in the right axilla. IMPRESSION: No acute cardiopulmonary disease.
[2021-12-28 16:12] LABS: Protime INR 1.21
[2021-12-28 16:28] LABS: ALT/SGPT 35 U/L (12-78); AST/SGOT 19 U/L (15-37); Albumin 3.3 g/dL (3.4-5.0); Alkaline Phosphatase 80 U/L (45-117); BUN Blood Urea Nitrogen 21 mg/dL (7-18); Bicarbonate 28 mmol/L (21-32); Bilirubin Total 0.3 mg/dL (0.2-1.0); Glucose Level 108 mg/dL (74-106); Lipase 143 U/L (73-393); Magnesium 2.1 mg/dL (1.8-2.4); NT PRO-BNP 61 pg/mL (<125); Potassium 3.9 mmol/L (3.5-5.1); Protein, Total 6.2 g/dL (6.4-8.2); Sodium Level 144 mmol/L (136-145)
[2021-12-28 16:29] LABS: Bilirubin Direct < 0.1 mg/dL (0-0.2); Troponin High Sensitivity < 3.00 pg/mL (<58.9)
--- NOTE | 2021-12-28 17:12 | ER ---
Nurse's Notes [facility] Name: Elvira Thorpe Age: 61 yrs Sex: Female : 1960 Arrival Date: 12/28/2021 Time: 14:11 Bed 16 Private MD: Diagnosis: GI Bleed/ Gastrointestinal hemorrhage, unspecified-ACTIVE COLON BLEED;Abdominal pain, unspecified;Abdominal tenderness Presentation: 12/28 14:20 Chief complaint: Patient states: After walking today she went to the restroom and ww noticed bright red blood in her stool. Recently had a colonoscopy on 12/17/2021 and had 5 polyps removed. Coronavirus screen: Vaccine status: Patient reports receiving the 2nd dose of the covid vaccine. Client denies travel out of the [place] in the last 14 days. Ebola Screen: Patient denies travel to an Ebola-affected area in the 21 days before illness onset. Initial Sepsis Screen: Does the patient meet any 2 criteria? No. Patient's initial sepsis screen is negative. Does the patient have a suspected source of infection? No. Patient's initial sepsis screen is negative. Risk Assessment: Do you want to hurt yourself or someone else? Patient reports no desire to harm self or others. Onset of symptoms was December 28, 2021. 14:20 Method Of Arrival: Ambulatory ww 14:20 Acuity: ROLAN 3 ww Triage Assessment: 14:22 General: Appears in no apparent distress. Behavior is anxious. Pain: Denies pain. ww Neuro: Level of Consciousness is awake, alert, obeys commands, Oriented to person, place, time, situation, Moves all extremities. Gait is steady, Speech is normal. Cardiovascular: Patient's skin is warm and dry. Respiratory: Airway is patent Respiratory effort is even, unlabored, Respiratory pattern is regular, symmetrical. GI: Reports bloody stool. Derm: Skin is healthy with good turgor. Historical: - Allergies: 14:22 No Known Allergies; ww - Home Meds: 14:22 aspirin 81 mg Oral chew 1 tab once daily [Active]; Plavix 75 mg Oral tab 1 tab once ww daily [Active]; pantoprazole 40 mg oral TbEC 1 tab once daily [Active]; Hydroxyzine Oral [Active]; - PMHx: 14:22 breast cancer; 18 years ago; TIA 07/19/21; ww - PSHx: 14:22 cancerous lump removal; section; hysterectomy; ww - Immunization history:: Adult Immunizations up to date. - Social history:: Smoking status: Patient denies any tobacco usage or history of. Screenin:24 Abuse screen: Denies threats or abuse. Denies injuries from another. Nutritional ww screening: No deficits noted. Nutritional screening: No deficits noted. Tuberculosis screening: No symptoms or risk factors identified. 19:13 Fall Risk None identified. Secondary diagnosis (15 points) blood loss. IV access (20 tk1 points). Ambulatory Aid- None/Bed Rest/Nurse Assist (0 pts). Gait- Weak (10 pts.). Mental Status- Oriented to own ability (0 pts). Total Garcia Fall Scale indicates High Risk Score (45 or more points). Assessment: 14:30 General: Appears in no apparent distress. comfortable, Behavior is calm, cooperative, cb5 appropriate for age. Pain: Denies pain. Neuro: No deficits noted. Level of Consciousness is awake, alert, obeys commands, Oriented to person, place, time, situation, Appropriate for age. Cardiovascular:. Respiratory: No deficits noted. GI: Bowel sounds present X 4 quads. GI: Reports bloody stool, Pain is 5 out of 10 on a pain scale. : No deficits noted. EENT: No deficits noted. Derm: No deficits noted. Musculoskeletal: No deficits noted. 15:30 Reassessment: Patient is alert, oriented x 3, equal unlabored respirations, skin cb5 warm/dry/pink. 18:20 General: Attempted to call report to [phone] spoke with nurse, she will return my cb5 call, evaluating staffing at this time. Informed charge nurse .. 18:30 General:. cb5 18:30 General: orders to transfuse platelets done, consents signed. two nurse check off cb5 complete, transfused platelets, pt remains on control panel operator. . 18:59 General: pt tolerated platelet transfusion. . cb5 19:12 General: attempted to call report to [phone], nurse will call back. pt is being cb5 transferred to room 15[address] [place]. 19:13 General: Appears comfortable, well groomed, well developed, well nourished, Behavior is tk1 calm, cooperative, appropriate for age. 19:13 Pain: Denies pain. Neuro: No deficits noted. Level of Consciousness is awake, alert, tk1 obeys commands, Oriented to person, place, time, situation, Appropriate for age. Cardiovascular: Heart tones S1 S2 Capillary refill < 3 seconds is brisk in bilateral fingers. Respiratory: No deficits noted. Airway is patent Trachea midline Respiratory effort is even, unlabored, Respiratory pattern is regular, symmetrical. GI: Abdomen is flat, non-distended, Last BM was December 28, 2021. at 19:13. Bowel sounds hyperactive in right lower quadrant and left lower quadrant Abd is soft and non tender X 4 quads. Reports cramping, bloody stool. : No deficits noted. No signs and/or symptoms were reported regarding the genitourinary system. EENT: No deficits noted. No signs and/or symptoms were reported regarding the EENT system. Derm: No deficits noted. No signs and/or symptoms reported regarding the dermatologic system. Musculoskeletal: No deficits noted. No signs and/or symptoms reported regarding the musculoskeletal system. 19:27 Reassessment: Attempted to call report. Kathryn states, nurses in report. Explained tk1 report was attempted by day nurse and was told the same thing. Kathryn requested ten minutes, she is escaulating. 20:17 Reassessment: Report given to [facility]. Patient transferred to [facility] for tk1 transport to [facility]. Vital Signs: 14:20 BP 90 / 57; Pulse 87; Resp 18; Temp 98.1; Pulse Ox 100% ; Weight 68.04 kg; Height 5 ft. ww 6 in. (167.64 cm); 15:30 BP 144 / 69; Pulse 82; Resp 16; Temp 98.6; Pulse Ox 98% ; Pain 2/10; cb5 19:13 BP 117 / 63 RA Supine (auto/reg); Pulse 70 MON; Resp 16 S; Temp 98(O); Pulse Ox 100% ; tk1 Pain 0/10; 19:45 BP 102 / 72 LA Supine (auto/reg); Pulse 70 MON; Resp 18 S; Temp 98(O); Pulse Ox 100% ; tk1 Pain 0/10; 20:00 BP 107 / 57 LA Supine (auto/reg); Pulse 68 MON; Resp 18 S; Temp 98.3; Pulse Ox 100% on tk1 R/A; Pain 0/10; 14:20 Body Mass Index 24.21 (68.04 kg, 167.64 cm) ED Course: 14:11 Patient arrived in ED. ds1 14:22 Triage completed. ww 14:22 Arm band placed on right wrist. ww 14:29 Jero Savage MD is Attending Physician. [facility] 14:33 Bed in low position. Call light in reach. Side rails up X 1. cb5 14:33 No provider procedures requiring assistance completed. cb5 14:42 Andria Crouch, RN is Primary Nurse. cb5 15:10 Magnesium Sent. ll1 15:11 Type And Screen Sent. cb5 15:11 CBC with Automated Diff Sent. cb5 15:11 Liver (Hepatic) Function Sent. cb5 15:11 Basic Metabolic Panel Sent. cb5 15:11 Basic Metabolic Panel Sent. cb5 15:11 CBC with Diff Sent. cb5 15:11 LFT's Sent. cb5 15:11 Magnesium Sent. cb5 15:11 XRAY Chest (1 view) Sent. cb5 15:12 NT PRO-BNP Sent. cb5 15:12 PT-INR Sent. cb5 15:12 Troponin HS Sent. cb5 15:13 Lipase Sent. cb5 15:30 Basic Metabolic Panel Sent. cb5 15:30 NT PRO-BNP Sent. cb5 15:30 PT-INR Sent. cb5 15:30 Troponin HS Sent. cb5 15:30 Lipase Sent. cb5 15:30 Type And Screen Sent. cb5 15:31 Magnesium Sent. cb5 15:31 Liver (Hepatic) Function Sent. cb5 15:53 XRAY Chest (1 view) In Process Unspecified. EDMS 17:02 CT Abd/Pelvis - IV Contrast Only In Process Unspecified. EDMS 19:09 Report given to Lior Herrera cb5 19:13 transfer approval from receiving facility. tk1 19:13 tile molder on. Pulse ox on. NIBP on. tk1 19:13 IV is patent, is intact, with fluids infusing freely, with good blood return. tk1 20:18 Patient transferred, IV remains in place. tk1 Administered Medications: 15:10 Drug: NS 0.9% 1000 ml Route: IV; Rate: 125 ml/hr; Site: left antecubital; cb5 15:10 Drug: NS 0.9% 500 ml Route: IV; Rate: bolus; Site: left antecubital; cb5 15:10 Drug: Cipro (ciprofloxacin) 400 mg Volume: 200 ml; Route: IVPB; Infused Over: 60 mins; cb5 Site: left antecubital; 15:10 Drug: Flagyl (metroNIDAZOLE) 500 mg Volume: 100 ml; Route: IVPB; Rate: 200 ml/hr; cb5 Infused Over: 30 mins; Site: left antecubital; Outcome: 17:12 ER care complete, transfer ordered by . [facility] 19:52 Transferred by ground EMS to [facility], [facility], Transfer form completed. tk1 19:52 Transferred Note: Report called to DELONTE Tucker 19:52 Condition: stable 19:52 Instructed on the need for transfer, Demonstrated understanding of 20:38 Patient left the ED. tk1 Signatures: Dispatcher [employer] EDMS Jero Savage MD MD cha Sanford, Demi ds1 Daphnie Chavira RN RN ll1 Priscilla Lugo RN RN ww Kirby, Tammie tk1 Andria Crouch, RN RN cb5 Corrections: (The following items were deleted from the chart) 19:13 19:08 General: Attempted to call report to [phone], they will call back. . cb5 cb5 20:04 19:52 Reassessment: tk1 tk1 20:10 20:00 tile molder on. Pulse ox on. NIBP on. tk1 tk1 20:11 20:00 Fall Risk None identified. tk1 tk1
--- NOTE | 2021-12-28 17:13 | EDPHYS ---
Physician Documentation [facility] Name: Elvira Thorpe Age: 61 yrs Sex: Female : 1960 Arrival Date: 12/28/2021 Time: 14:11 Bed 16 Private MD: ED Physician Jero Savage HPI: 12/28 17:03 This 61 yrs old Female presents to ER via Ambulatory with complaints of Blood vivian in Stool. 17:03 The patient presents to the emergency department with rectal bleeding, a moderate vivian amount. Onset: The symptoms/episode began/occurred today. Abdominal pain: described as crampy, located in the right lower quadrant and left lower quadrant. Modifying factors: The symptoms are alleviated by nothing, the symptoms are aggravated by nothing. Associated signs and symptoms: The patient has no apparent associated signs or symptoms. Severity of symptoms: At their worst the symptoms were mild in the emergency department the symptoms are unchanged. The patient has not experienced similar symptoms in the past. Historical: - Allergies: 14:22 No Known Allergies; ww - Home Meds: 14:22 aspirin 81 mg Oral chew 1 tab once daily [Active]; Plavix 75 mg Oral tab 1 tab once ww daily [Active]; pantoprazole 40 mg oral TbEC 1 tab once daily [Active]; Hydroxyzine Oral [Active]; - PMHx: 14:22 breast cancer; 18 years ago; TIA 07/19/21; ww - PSHx: 14:22 cancerous lump removal; section; hysterectomy; ww - Immunization history:: Adult Immunizations up to date. - Social history:: Smoking status: Patient denies any tobacco usage or history of. ROS: 17:04 Constitutional: Negative for fever, chills, and weight loss, Eyes: Negative for injury, vivian pain, redness, and discharge, ENT: Negative for injury, pain, and discharge, Neck: Negative for injury, pain, and swelling, Cardiovascular: Negative for chest pain, palpitations, and edema, Respiratory: Negative for shortness of breath, cough, wheezing, and pleuritic chest pain, Back: Negative for injury and pain, : Negative for injury, bleeding, discharge, and swelling, MS/Extremity: Negative for injury and deformity, Skin: Negative for injury, rash, and discoloration, Neuro: Negative for headache, weakness, numbness, tingling, and seizure, Psych: Negative for depression, anxiety, suicide ideation, homicidal ideation, and hallucinations, Allergy/Immunology: Negative for hives, rash, and allergies, Endocrine: Negative for neck swelling, polydipsia, polyuria, polyphagia, and marked weight changes, Hematologic/Lymphatic: Negative for swollen nodes, abnormal bleeding, and unusual bruising. 17:04 Abdomen/GI: Positive for abdominal pain, abdominal cramps, rectal bleeding, of the right lower quadrant and left lower quadrant. Exam: 17:04 Constitutional: This is a well developed, well nourished patient who is awake, alert, vivian and in no acute distress. Head/Face: Normocephalic, atraumatic. Eyes: Pupils equal round and reactive to light, extra-ocular motions intact. Lids and lashes normal. Conjunctiva and sclera are non-icteric and not injected. Cornea within normal limits. Periorbital areas with no swelling, redness, or edema. ENT: Nares patent. No nasal discharge, no septal abnormalities noted. Tympanic membranes are normal and external auditory canals are clear. Oropharynx with no redness, swelling, or masses, exudates, or evidence of obstruction, uvula midline. Mucous membranes moist. Neck: Trachea midline, no thyromegaly or masses palpated, and no cervical lymphadenopathy. Supple, full range of motion without nuchal rigidity, or vertebral point tenderness. No Meningismus. Chest/axilla: Normal chest wall appearance and motion. Nontender with no deformity. No lesions are appreciated. Cardiovascular: Regular rate and rhythm with a normal S1 and S2. No gallops, murmurs, or rubs. Normal PMI, no JVD. No pulse deficits. Respiratory: Lungs have equal breath sounds bilaterally, clear to auscultation and percussion. No rales, rhonchi or wheezes noted. No increased work of breathing, no retractions or nasal flaring. Back: No spinal tenderness. No costovertebral tenderness. Full range of motion. Female : Normal external genitalia. Skin: Warm, dry with normal turgor. Normal color with no rashes, no lesions, and no evidence of cellulitis. MS/ Extremity: Pulses equal, no cyanosis. Neurovascular intact. Full, normal range of motion. Neuro: Awake and alert, GCS 15, oriented to person, place, time, and situation. Cranial nerves II-XII grossly intact. Motor strength 5/5 in all extremities. Sensory grossly intact. Cerebellar exam normal. Normal gait. Psych: Awake, alert, with orientation to person, place and time. Behavior, mood, and affect are within normal limits. 17:04 ECG was reviewed by the Attending Physician. 17:04 Abdomen/GI: Inspection: abdomen appears normal, Bowel sounds: normal, in the right upper quadrant, left upper quadrant, right lower quadrant and left lower quadrant, active, all quadrants, Palpation: mild abdominal tenderness, in the right lower quadrant and left lower quadrant, Rectal exam: rectal tone normal, Stool: grossly bloody, maroon, hemorrhoid(s), are not appreciated, mass, is not appreciated, swelling, is not appreciated, tenderness, is not appreciated, Liver: no appreciated palpable abnormalities, Hernia: not appreciated. Vital Signs: 14:20 BP 90 / 57; Pulse 87; Resp 18; Temp 98.1; Pulse Ox 100% ; Weight 68.04 kg; Height 5 ft. ww 6 in. (167.64 cm); 15:30 BP 144 / 69; Pulse 82; Resp 16; Temp 98.6; Pulse Ox 98% ; Pain 2/10; cb5 19:13 BP 117 / 63 RA Supine (auto/reg); Pulse 70 MON; Resp 16 S; Temp 98(O); Pulse Ox 100% ; tk1 Pain 0/10; 19:45 BP 102 / 72 LA Supine (auto/reg); Pulse 70 MON; Resp 18 S; Temp 98(O); Pulse Ox 100% ; tk1 Pain 0/10; 20:00 BP 107 / 57 LA Supine (auto/reg); Pulse 68 MON; Resp 18 S; Temp 98.3; Pulse Ox 100% on tk1 R/A; Pain 0/10; 14:20 Body Mass Index 24.21 (68.04 kg, 167.64 cm) MDM: 14:29 Patient medically screened. vivian 17:07 Differential diagnosis: gastritis, diverticulitis, hemorrhoids, varices, bowel vivian obstruction, diverticulitis, gastritis, GI Bleed, non-specific abd pain, pancreatitis, Peptic Ulcer Disease, urinary tract infection. Data reviewed: vital signs, nurses notes, lab test result(s), EKG, radiologic studies, CT scan. Data interpreted: monitor technician: rate is 82 beats/min, rhythm is regular, Pulse oximetry: on room air is 98 %. Test interpretation: by ED physician or midlevel provider: ECG, plain radiologic studies. Counseling: I had a detailed discussion with the patient and/or guardian regarding: the historical points, exam findings, and any diagnostic results supporting the discharge/admit diagnosis, lab results, radiology results, the need for further work-up and treatment in the hospital. 12/28 14:32 Order name: Basic Metabolic Panel [facility] 12/28 14:32 Order name: CBC with Diff [facility] 12/28 14:32 Order name: LFT's [facility] 12/28 14:32 Order name: Magnesium [facility] 12/28 14:32 Order name: NT PRO-BNP; Complete Time: 16:58 [facility] 12/28 14:32 Order name: PT-INR; Complete Time: 16:58 [facility] 12/28 14:32 Order name: Troponin HS; Complete Time: 16:58 [facility] 12/28 14:32 Order name: Lipase; Complete Time: 16:58 [facility] 12/28 14:32 Order name: Type And Screen 12/28 14:32 Order name: Basic Metabolic Panel; Complete Time: 16:58 EDAL 12/28 14:33 Order name: CBC with Automated Diff; Complete Time: 15:46 EDAL 12/28 14:33 Order name: Liver (Hepatic) Function; Complete Time: 16:58 EDAL 12/28 14:33 Order name: Magnesium; Complete Time: 16:58 EDAL 12/28 16:58 Order name: ABO/RH no charge; Complete Time: 17:00 EDAL 12/28 14:32 Order name: XRAY Chest (1 view); Complete Time: 16:58 [facility] 12/28 14:32 Order name: EKG; Complete Time: 14:33 12/28 14:32 Order name: Cardiac monitoring; Complete Time: 15:11 [facility] 12/28 14:32 Order name: EKG - Nurse/Tech; Complete Time: 15:12 [facility] 12/28 14:32 Order name: IV Saline Lock; Complete Time: 15:12 12/28 14:32 Order name: Labs collected and sent; Complete Time: 15:12 12/28 14:32 Order name: CT Abd/Pelvis - IV Contrast Only; Complete Time: 17:43 [facility] 12/28 17:15 Order name: SARS-COV-2 RT PCR (Document "Date of Onset" if Symptomatic) [facility] 12/28 17:18 Order name: BB Add On [facility] 12/28 17:21 Order name: Platelets, Leukored Pheresis [facility] 12/28 14:32 Order name: O2 Per Protocol; Complete Time: 15:12 [facility] 12/28 14:32 Order name: O2 Sat Monitoring; Complete Time: 15:12 [facility] 12/28 14:32 Order name: Urine Dipstick-Ancillary (obtain specimen) [facility] 12/28 17:00 Order name: Misc. Order: PLATELET FUNCTION TEST [facility] 12/28 17:13 Order name: Transfuse [facility] 12/28 17:14 Order name: NPO vivian EC:04 Rate is 44 beats/min. Rhythm is regular. QRS Nicholls is Normal. TN interval is normal. QRS vivian interval is normal. QT interval is normal. No Q waves. T waves are Normal. No ST changes noted. Interpreted by me. Reviewed by me. Administered Medications: 15:10 Drug: NS 0.9% 1000 ml Route: IV; Rate: 125 ml/hr; Site: left antecubital; cb5 15:10 Drug: NS 0.9% 500 ml Route: IV; Rate: bolus; Site: left antecubital; cb5 15:10 Drug: Cipro (ciprofloxacin) 400 mg Volume: 200 ml; Route: IVPB; Infused Over: 60 mins; cb5 Site: left antecubital; 15:10 Drug: Flagyl (metroNIDAZOLE) 500 mg Volume: 100 ml; Route: IVPB; Rate: 200 ml/hr; cb5 Infused Over: 30 mins; Site: left antecubital; Disposition Summary: 12/28/21 17:12 Transfer Ordered Transfer Location: [facility] vivian Reason: Higher level of care vivian Condition: Fair vivian Problem: new vivian Symptoms: have improved vivian Accepting Physician: TO [facility](12/28/21 20:38) tk1 Diagnosis - GI Bleed/ Gastrointestinal hemorrhage, unspecified - ACTIVE COLON BLEED vivian - Abdominal pain, unspecified vivian - Abdominal tenderness vivian Forms: - Medication Reconciliation Form vivian - SBAR form vivian Signatures: Dispatcher [employer] Jero Charles MD MD cha Wood, Whitney, RN RN Amy Rosarioe tk1 Andria Crouch RN RN cb5 Corrections: (The following items were deleted from the chart) 20:38 17:12 TO [place] tk1
--- NOTE | 2021-12-28 17:15 | RAD REPORT ---
EXAM DESCRIPTION: CTAbdomen Pelvis W Contrast - 12/28/2021 5:02 pm CLINICAL HISTORY: ABD PAIN COMPARISON: <Comparisons> TECHNIQUE: CT of the abdomen and pelvis was performed. All CT scans are performed using dose optimization technique as appropriate and may include automated exposure control or mA/KV adjustment according to patient size. FINDINGS: Lower chest: No acute abnormality. Surgical changes at the gastroesophageal junction. Post radiation changes in the right lung. Liver: No acute abnormality or suspicious lesions. Biliary: Cholecystectomy . Stomach: No significant focal abnormality. Duodenum: No significant focal abnormality. Pancreas: No significant abnormality. Spleen: No significant abnormality. Adrenal: No suspicious lesions. Kidney/ureter: No hydronephrosis. 4 mm stone in the right kidney. Retroperitoneum: No retroperitoneal adenopathy. Vascular: No aneurysm. Bowel: In the distal ascending colon, there is a focus hyperattenuation on the arterial phase which b ecomes slightly more dilute on the portal venous phase. See images 44 through 46, series 3. Air-fluid levels are present within the colon.. Normal appendix . Peritoneum: No ascites or free air. Bladder: Grossly unremarkable. Reproductive: No adnexal masses. Hysterectomy. Bones: No acute fracture. Grade 1 anterolisthesis of L4 on L5 . Other: n/a IMPRESSION: Possible intraluminal active bleeding in the colon in the ascending colon. Reportedly, t he patient has hematochezia. No other acute intra-abdominal abnormality identified. Relayed to Dr. Savage by Dr. Vasquez at 1711 on 12/28/21
[2021-12-28] MEDS ORDERED: NA CHLORIDE 0.9% 250 ML ONE (18:32)
[2021-12-28 21:21] VITALS: O2SAT 100
[2021-12-28 21:22] VITALS: BP 107/57; TEMP 98.3
== END 2021-12-28 20:38 | disposition short-term general hospital (02) ==
LOC: ER 14:10
PROC: 30233R1 Transfusion of Nonautologous Platelets into Peripheral Vein, Percutaneous Approach (ICD-10-PCS; principal; 2021-12-28)
DX: K92.2 Gastrointestinal hemorrhage, unspecified (principal); R10.30 Lower abdominal pain, unspecified; R10.819 Abdominal tenderness, unspecified site; Z20.822 Contact with and (suspected) exposure to COVID-19; Z79.01 Long term (current) use of anticoagulants; Z79.82 Long term (current) use of aspirin; Z86.73 Personal history of transient ischemic attack (TIA), and cerebral infarction without residual deficits; Z85.3 Personal history of malignant neoplasm of breast
CPT/HCPCS: 36415; 71045; 74177; 80048; 80076; 83690; 83735; 83880; 84484; 85025; 85610; 86850; 86900; 86901; 93005; 96374; 96375; 99285; J0744; J7030; J7040; J7050; P9073; Q9967; U0003